=== PATIENT | female | born 1965 | race Caucasian/White ===

== ENCOUNTER 2019-10-07 17:31 | Emergency (ER) | payer SELFPAY ==
[2019-10-07] MEDS ORDERED: TETANUS & DIPHTHERIA TOX,ADULT 0.5 ML VIAL ONE (18:06)
[2019-10-07] MEDS ORDERED: LIDOCAINE 1% MPF 5 ML VIAL ONE (18:06)
--- NOTE | 2019-10-07 18:34 | EDPHYS ---
Physician Documentation [facility] Name: Sharyn Santo Age: 54 yrs Sex: Female : 1965 Arrival Date: 10/07/2019 Time: 17:34 Bed 19 Private MD: ED Physician Vin Kenyon HPI: 10/06 18:42 This 54 yrs old Female presents to ER via Ambulatory with complaints of kb Laceration To Arm. 18:42 The patient has a laceration related to: arm got caught in tailgate occurred at home, kb and there are no complicating factors. The injury was accidental. The laceration(s) is(are) located on the left bicep. Onset: The symptoms/episode began/occurred just prior to arrival. Associated signs and symptoms: The patient has no apparent associated signs or symptoms. The patient has not experienced similar symptoms in the past. The patient has not recently seen a physician. 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 - Social history:: Smoking status: Patient denies any tobacco usage or history of. ROS: 18:41 Constitutional: Negative for fever, chills, and weight loss, Neck: Negative for injury, kb pain, and swelling, Cardiovascular: Negative for chest pain, palpitations, and edema, Respiratory: Negative for shortness of breath, cough, wheezing, and pleuritic chest pain, Abdomen/GI: Negative for abdominal pain, nausea, vomiting, diarrhea, and constipation, Back: Negative for injury and pain, MS/Extremity: Negative for injury and deformity, Neuro: Negative for headache, weakness, numbness, tingling, and seizure. 18:41 Skin: Positive for laceration(s), of the left bicep. Exam: 18:41 Constitutional: This is a well developed, well nourished patient who is awake, alert, kb and in no acute distress. Head/Face: Normocephalic, atraumatic. Neck: Trachea midline, no thyromegaly or masses palpated, and no cervical lymphadenopathy. Supple, full range of motion without nuchal rigidity, or vertebral point tenderness. No Meningismus. Chest/axilla: Normal chest wall appearance and motion. Nontender with no deformity. No lesions are appreciated. Cardiovascular: Regular rate and rhythm with a normal S1 and S2. No gallops, murmurs, or rubs. Normal PMI, no JVD. No pulse deficits. Respiratory: Lungs have equal breath sounds bilaterally, clear to auscultation and percussion. No rales, rhonchi or wheezes noted. No increased work of breathing, no retractions or nasal flaring. Abdomen/GI: Soft, non-tender, with normal bowel sounds. No distension or tympany. No guarding or rebound. No evidence of tenderness throughout. MS/ Extremity: Pulses equal, no cyanosis. Neurovascular intact. Full, normal range of motion. Neuro: Awake and alert, GCS 15, oriented to person, place, time, and situation. Cranial nerves II-XII grossly intact. Motor strength 5/5 in all extremities. Sensory grossly intact. Cerebellar exam normal. Normal gait. 18:41 Skin: injury, laceration(s), the wound is approximately 2 cm(s), of the left bicep, that can be described as clean, no foreign body, linear, without bleeding. Vital Signs: 18:12 BP 123 / 75; Pulse 74; Resp 17; Temp 98.4(O); Pulse Ox 100% on R/A; ae4 Laceration: 18:39 Wound Repair of 2cm ( 0.8in ) subcutaneous laceration to left bicep. Linear shaped.. kb Distal neuro/vascular/tendon intact. Anesthesia: Wound infiltrated with 4 mls of 1% lidocaine. Wound prep: Extensive cleansing with betadine by me, Wound irrigation with saline by me, Wound margin revised minimally. Skin closed with 4 1-0 Prolene using simple sutures and sterile technique. Patient tolerated well. MDM: 17:57 Patient medically screened. kb 18:38 Data reviewed: vital signs, nurses notes. Data interpreted: Pulse oximetry: on room air kb is 100 %. Interpretation: normal. 18:39 Counseling: I had a detailed discussion with the patient and/or guardian regarding: the kb historical points, exam findings, and any diagnostic results supporting the discharge/admit diagnosis, the need for outpatient follow up, a family practitioner, to return to the emergency department if symptoms worsen or persist or if there are any questions or concerns that arise at home. 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 Exp: ae4 08/11/2021. Lot #: [id number]. } Route: IM; Site: right deltoid; 18:52 Follow up: Response: No adverse reaction ae4 18:35 Drug: Lidocaine (1 %) 1 vials {Note: Administered by Xin Cortes NP.} Volume: 5 ae4 ml; Route: Infiltration; Disposition: 19:39 Co-signature as Attending Physician, Vin Kenyon MD I agree with the assessment and kdr plan of care. Disposition: 10/07/19 18:33 Discharged to Home. Impression: Laceration without foreign body of left upper arm. - Condition is Stable. - Discharge Instructions: Laceration Care, Adult, [id number]. - Medication Reconciliation Form, Thank You Letter, Antibiotic Education, Prescription Opioid Use form. - Follow up: Emergency Department; When: As needed; Reason: Worsening of condition. Follow up: Private Physician; When: 2 - 3 days; Reason: Recheck today's complaints, Continuance of care, Re-evaluation by your physician. - Notes: Have sutures removed in 7-10 days Keep clean and dry Signatures: Xin Cortes, FURNITURE SANDER-C COLLEEN-Vin Weber MD MD kdr Brendan Gruber RN RN ae4 Corrections: (The following items were deleted from the chart) 19:00 18:33 10/07/2019 18:33 Discharged to Home. Impression: Laceration without foreign body ae4 of left upper arm. Condition is Stable. Forms are Medication Reconciliation Form, Thank You Letter, Antibiotic Education, Prescription Opioid Use. Follow up: Emergency Department; When: As needed; Reason: Worsening of condition. Follow up: Private Physician; When: 2 - 3 days; Reason: Recheck today's complaints, Continuance of care, Re-evaluation by your physician. kb
--- NOTE | 2019-10-07 18:34 | ER ---
Nurse's Notes [facility] Name: Sharyn Santo Age: 54 yrs Sex: Female : 1965 Arrival Date: 10/07/2019 Time: 17:34 Bed 19 Private MD: Diagnosis: Laceration without foreign body of left upper arm Presentation: 10/06 17:55 Chief complaint: Patient states: left arm got caught in a tail gate while moving things dm5 this afternoon, small laceration noted to left upper arm. Coronavirus screen: The patient has NOT traveled to a country currently being monitored by the [facility] within the last 14 days. Proceed with normal triage procedures. The patient has NOT had contact with any known and/or suspected case of coronavirus. Proceed with normal triage procedures. Ebola Screen: Patient negative for fever greater than or equal to 101.5 degrees Fahrenheit, and additional compatible Ebola Virus Disease symptoms Patient denies exposure to infectious person. Patient denies travel to an Ebola-affected area in the 21 days before illness onset. No symptoms or risks identified at this time. Complicating Factors: There are no complicating factors for this patient. Initial Sepsis Screen: Does the patient meet any 2 criteria? No. Patient's initial sepsis screen is negative. Does the patient have a suspected source of infection? No. Patient's initial sepsis screen is negative. Risk Assessment: Do you want to hurt yourself or someone else? Patient reports no desire to harm self or others. 17:55 Method Of Arrival: Ambulatory dm5 17:55 Acuity: JERAMIE 4 dm5 18:50 Onset of symptoms was October 07, 2019 at 17:50. ae4 Triage Assessment: 18:15 General: Appears in no apparent distress. uncomfortable, Behavior is calm, cooperative. ae4 Pain: Complains of pain in left bicep. EENT: No signs and/or symptoms were reported regarding the EENT system. Neuro: Level of Consciousness is awake, alert, obeys commands, Oriented to person, place, time, situation, Appropriate for age. Cardiovascular: Patient's skin is warm and dry. Respiratory: Airway is patent Respiratory effort is even, unlabored, Respiratory pattern is regular, symmetrical. GI: No signs and/or symptoms were reported involving the gastrointestinal system. : No signs and/or symptoms were reported regarding the genitourinary system. Derm: Wound noted Wound is Avulsion to left upper, medial arm. No bleeding noted, adipose tissue visible. Musculoskeletal: Swelling present in left bicep. 22:32 Injury Description: Laceration. 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 - Social history:: Smoking status: Patient denies any tobacco usage or history of. Screenin:13 Abuse screen: Denies threats or abuse. Nutritional screening: No deficits noted. ae4 Tuberculosis screening: No symptoms or risk factors identified. Fall Risk None identified. Assessment: 18:54 Reassessment: Patient appears in no apparent distress at this time. Patient and/or ae4 family updated on plan of care and expected duration. Pain level reassessed. Son and daughter in law at bedside. Patient states feeling better. General: Appears in no apparent distress. comfortable, Behavior is calm, cooperative. Pain: Complains of pain in left bicep. Neuro: Level of Consciousness is awake, alert, obeys commands, Oriented to person, place, time, situation, Appropriate for age. Cardiovascular: Patient's skin is warm and dry. 18:54 Musculoskeletal: Please see full assessment. Injury Description: Laceration is jagged, ae4 0.5 to 2.5 cm long, not bleeding. Vital Signs: 18:12 BP 123 / 75; Pulse 74; Resp 17; Temp 98.4(O); Pulse Ox 100% on R/A; ae4 ED Course: 17:34 Patient arrived in ED. mr 17:41 Xin Cortes FNP-C [facility]. kb 17:41 Vin Kenyon MD is Attending Physician. kb 17:57 Triage completed. dm5 17:58 Brendan Gruber, TIMOTEO is Primary Nurse. ae4 18:12 Arm band placed on right wrist. ae4 18:13 Bed in low position. Pulse ox on. NIBP on. ae4 19:00 No provider procedures requiring assistance completed. Patient did not have IV access ae4 during this emergency room visit. 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 Exp: ae4 08/11/2021. Lot #: [id number]. } Route: IM; Site: right deltoid; 18:52 Follow up: Response: No adverse reaction ae4 18:35 Drug: Lidocaine (1 %) 1 vials {Note: Administered by Xin Cortes NP.} Volume: 5 ae4 ml; Route: Infiltration; Outcome: 18:33 Discharge ordered by . ludivina 19:00 Patient left the ED. ae4 19:00 Discharged to home ambulatory. ae4 19:00 Condition: stable 19:00 Discharge instructions given to patient, Instructed on discharge instructions, follow up and referral plans. Demonstrated understanding of instructions. Signatures: Xin Cortes, ORNAMENTAL BRONZE WORKER-C ORNAMENTAL BRONZE WORKER-Lea Pickering, RN RN dm5 Brigette Babcock Andrea RN RN ae4 Corrections: (The following items were deleted from the chart) 22:34 18:54 General: Appears ae4 ae4
[2019-10-07 19:07] VITALS: BP 123/75; TEMP 98.4; O2SAT 100
== END 2019-10-07 19:00 | disposition home or self-care (01) ==
LOC: ER 17:31
PROC: 0JQF0ZZ Repair Left Upper Arm Subcutaneous Tissue and Fascia, Open Approach (ICD-10-PCS; principal; 2019-10-07)
DX: S41.112A Laceration without foreign body of left upper arm, initial encounter (principal); W23.0XXA Caught, crushed, jammed, or pinched between moving objects, initial encounter; Y93.9 Activity, unspecified; Y92.009 Unspecified place in unspecified non-institutional (private) residence as the place of occurrence of the external cause; Z23 Encounter for immunization
CPT/HCPCS: 90471; 90714; 99283

== ENCOUNTER 2019-10-19 12:49 | Emergency (ER) | payer SELFPAY ==
--- NOTE | 2019-10-19 13:24 | ER ---
Nurse's Notes [facility] Name: Sharyn Santo Age: 54 yrs Sex: Female : 1965 Arrival Date: 10/19/2019 Time: 12:54 Bed 11 Private MD: Diagnosis: Encounter for removal of sutures Vital Signs: 10/18 13:10 BP 114 / 65; Pulse 79; Resp 16; Temp 97.8(O); Pulse Ox 98% ; lt1 ED Course: 12:54 Patient arrived in ED. fj1 13:02 Toña Mosqueda F[facility]-C [facility] snw 13:02 Saw Lang MD is Attending Physician. snw 13:57 Lea Sheppard, TIMOTEO is Primary Nurse. iw Administered Medications: No medications were administered Outcome: 13:23 Discharge ordered by . snw 13:57 Patient left the ED. iw Signatures: Toña Mosqueda FNP-C ENTRY LEVEL ELECTRICIAN-Csnw Yeny Malin, TIMOTEO RN iw Antonia Glover lt1 Alexis Rangel fj1
--- NOTE | 2019-10-19 13:24 | EDPHYS ---
Physician Documentation [facility] Name: Sharyn Santo Age: 54 yrs Sex: Female : 1965 Arrival Date: 10/19/2019 Time: 12:54 Bed 11 Private MD: ED Physician Saw Lang HPI: 10/18 13:31 This 54 yrs old Female presents to ER via Unassigned with complaints of snw Suture Removal. 13:31 The patient has taryn on the left arm. Previous treatment: Treatment type: The snw patient's original treatment included sutures. Sutures/taryn progress: The patient's wound displays redness at site. It is unknown whether or not the patient has had similar symptoms in the past. It is unknown whether or not the patient has recently seen a physician. ROS: 13:31 Constitutional: Negative for fever, chills, and weight loss, Eyes: Negative for injury, snw pain, redness, and discharge, ENT: Negative for injury, pain, and discharge, Neck: Negative for injury, pain, and swelling, Cardiovascular: Negative for chest pain, palpitations, and edema, Respiratory: Negative for shortness of breath, cough, wheezing, and pleuritic chest pain, Abdomen/GI: Negative for abdominal pain, nausea, vomiting, diarrhea, and constipation, Back: Negative for injury and pain, : Negative for injury, bleeding, discharge, and swelling, MS/Extremity: Negative for injury and deformity, Neuro: Negative for headache, weakness, numbness, tingling, and seizure, Psych: Negative for depression, anxiety, suicide ideation, homicidal ideation, and hallucinations. 13:31 Skin: Positive for laceration(s), of the left bicep. Exam: 13:23 Constitutional: This is a well developed, well nourished patient who is awake, alert, snw and in no acute distress. Head/Face: Normocephalic, atraumatic. Eyes: Pupils equal round and reactive to light, extra-ocular motions intact. Lids and lashes normal. Conjunctiva and sclera are non-icteric and not injected. Cornea within normal limits. Periorbital areas with no swelling, redness, or edema. ENT: Nares patent. No nasal discharge, no septal abnormalities noted. Tympanic membranes are normal and external auditory canals are clear. Oropharynx with no redness, swelling, or masses, exudates, or evidence of obstruction, uvula midline. Mucous membranes moist. Neck: Trachea midline, no thyromegaly or masses palpated, and no cervical lymphadenopathy. Supple, full range of motion without nuchal rigidity, or vertebral point tenderness. No Meningismus. Chest/axilla: Normal chest wall appearance and motion. Nontender with no deformity. No lesions are appreciated. Cardiovascular: Regular rate and rhythm with a normal S1 and S2. No gallops, murmurs, or rubs. Normal PMI, no JVD. No pulse deficits. Respiratory: Lungs have equal breath sounds bilaterally, clear to auscultation and percussion. No rales, rhonchi or wheezes noted. No increased work of breathing, no retractions or nasal flaring. Abdomen/GI: Soft, non-tender, with normal bowel sounds. No distension or tympany. No guarding or rebound. No evidence of tenderness throughout. Back: No spinal tenderness. No costovertebral tenderness. Full range of motion. MS/ Extremity: Pulses equal, no cyanosis. Neurovascular intact. Full, normal range of motion. Neuro: Awake and alert, GCS 15, oriented to person, place, time, and situation. Cranial nerves II-XII grossly intact. Motor strength 5/5 in all extremities. Sensory grossly intact. Cerebellar exam normal. Normal gait. Psych: Awake, alert, with orientation to person, place and time. Behavior, mood, and affect are within normal limits. 13:23 Skin: Appearance: Color: normal in color, injury, laceration(s), repaired 2 weeks ago s/p cutting on truck tailgate, three sutures in place, removed, skin edges with some erythema, pt states this is improved post starting abx. Vital Signs: 13:10 BP 114 / 65; Pulse 79; Resp 16; Temp 97.8(O); Pulse Ox 98% ; lt1 MDM: 13:21 Patient medically screened. snw 13:32 Data reviewed: vital signs, nurses notes. Data interpreted: Pulse oximetry: on room air snw is 98 %. Interpretation: normal. Special discussion: Based on the history and exam findings, there is no indication for further emergent testing or inpatient evaluation. I discussed with the patient/guardian the need to see the primary care provider for further evaluation of the symptoms. Administered Medications: No medications were administered Disposition: 14:37 Co-signature as Attending Physician, Saw Lang MD. rn Disposition: 10/19/19 13:23 Discharged to Home. Impression: Encounter for removal of sutures. - Condition is Stable. - Discharge Instructions: Suture Removal, Care After. - Medication Reconciliation Form, Thank You Letter, Antibiotic Education, Prescription Opioid Use form. - Follow up: Private Physician; When: 2 - 3 days; Reason: Recheck today's complaints, Continuance of care, Re-evaluation by your physician. Follow up: Emergency Department; When: As needed; Reason: Worsening of condition. Signatures: Toña Mosqudea, MANAGER OF WAREHOUSE-C MANAGER OF WAREHOUSE-Csnw Yeny Malin RN RN Saw Elmore MD MD nutrition internship: (The following items were deleted from the chart) 13:57 13:23 10/19/2019 13:23 Discharged to Home. Impression: Encounter for removal of iw sutures. Condition is Stable. Forms are Medication Reconciliation Form, Thank You Letter, Antibiotic Education, Prescription Opioid Use. Follow up: Private Physician; When: 2 - 3 days; Reason: Recheck today's complaints, Continuance of care, Re-evaluation by your physician. Follow up: Emergency Department; When: As needed; Reason: Worsening of condition. snw
[2019-10-19 14:05] VITALS: BP 114/65; TEMP 97.8; O2SAT 98
== END 2019-10-19 13:57 | disposition home or self-care (01) ==
LOC: ER 12:49
DX: Z48.02 Encounter for removal of sutures (principal)
CPT/HCPCS: 99281

== ENCOUNTER 2023-11-25 13:32 | Emergency (ER) | payer OTHER, SELFPAY ==
--- OUTSIDE RECORDS SUMMARY | 2023-11-25 13:36 | XMS REPORT | Continuity of Care Document ---
Author Name Unknown Address [address] [facility] [address] [place] [address] [facility] thconnect Address [address] [facility] [address] [place] [address] Care Team Providers Care Geoscience Laboratory Technician Name Role Phone Elysia RAMON, [facility] Primary Care Physician [phone] ANTONIO LANTIGUA Attending Clinician Unavailable ROLA CALVILLO Attending Clinician Unava ilable CALEB STAUFFER Attending Clinician Unav ailable FAUSTO SALCIDO Attending Clinician Unavailab MARIA VICTORIA Dexter Attending Clinician Unavailab LAWRENCE Noland Attending Clinician Unavailable MD CRISTOBAL Attending Clinician Unavailab CHASE Bedolla Attending Clinician Unavailable LIZABETH CRISTINOCORRINE Attending Clinician Unavailable LAB47 Attending Clinician Unavailable NIDIA WHITFIELD Attending Clinician Unavailable KSENIA PEOPLES Attending Clinician Unava ilable LAB90 Attending Clinician Unavailable MELVIN Attending Clinician Unavailable Payers Payer Name Policy Type Policy Number Effective Date Expirati on Date Source JAY JAY PADILLA [facility] 94 ON 9 [id number] 2023 00:00:00 Problems Condition Name Condition Details Condition Category Status Onset Date Resolution Date Last Treatment Date Treating Clinician Comments Source Skin cancer screening Skin cancer screening Disease Active 09-10 00:00: 00 Sade foster Class 1 obesity due to excess calories without serious comorbidit y with body mass index (BMI) of 30.0 to 30.9 in adult Class 1 obesity due to excess calories without serious comorbidit y with body mass index (BMI) of 30.0 to 30.9 in adult Disease Active 2-15 00:00: 00 Sade Cartera kristin Well adult exam Well adult exam Disease Active -19 00:00: 00 Sade Cartera kristin Allergies, Adverse Reactions, Alerts Allergy Name Allergy Type Status Severity Reaction(s) Onset Date Inactive Date Treating Clinician Comments Source n Propensi ty to adverse reaction to drug Active 02-03 00:00: 00 Codeine Propensi ty to adverse reaction s Active 02-03 00:00: 00 Sade Cleveland - Raula l Social History Social Habit Start Date Stop Date Quantity Comments Source Sexual orientation Alpesh shaina Cleveland - External History of tobacco use Cigarette Smoker Sade rascon - External Alcoholic beverage intake 2023-11-11 00:00:00 2023-11-11 00:00:00 Ex-drinker (finding) Sade Cleveland - External Cigarettes smoked current (pack per day) - Reported 2023-11-11 00:00:00 2023-11-11 00:00:00 Sade Cleveland - External Cigarette pack-years 2023-11-11 00:00:00 2023-11-11 00:00:00 Sade Cleveland - External Alcohol intake 2023-09-10 00:00:00 2023-09-10 00:00:00 Ex-drinker (finding) Sade Cleveland - External History of Social function 2023-08-14 00:00:00 2023-08-14 00:00:00 Sade Cleveland - External Sex assigned at 1965 00:00:00 1965 00:00:00 Sade Cleveland - External Smoking Status Start Date Stop Date Source Smokes tobacco daily 2023-11-11 00:00:00 Sade Cleveland - External Medications Ordered Medication Name Filled Medication Name Start Date Stop Date Current Medication? Ordering Clinician Indication Dosage Frequency Signature (SIG) Comments Components Source Dicyclomine HCl 10 MG oral Capsule 11-10 00:00: 00 Yes [id number] 10mg Take 1 capsule (10 mg total) by mouth 4 times daily (before meals and nightly). Sade foster Omeprazole 40 MG oral Delayed Release Capsule 11-10 00:00: 00 Yes [id number] 40mg Take 1 capsule (40 mg total) by mouth daily. Sade foster Promethazin e HCl 12.5 MG oral Tablet 11-10 00:00: 00 Yes [id number] 12.5mg Q.25D Take 1 tablet (12.5 mg total) by mouth every 6 hours as needed for nausea. Sade foster Sod Picosulfate -Mag Ox-Cit Acd (Clenpiq) 10-3.5-12 MG-GM -GM/175ML oral Solution 11-10 00:00: 00 Yes [id number] Instructio ns provided to patient. Follow instructio ns provided by provider.. Sade foster Polyethylen e Glycol 3350 17 g oral Pack 11-10 00:00: 00 11-10 00:00 :00 Yes [id number] 17g Take 17 g by mouth 2 times daily. Sade foster Phentermine HCl 37.5 MG oral Tablet 10-12 00:00: 00 Yes [id number] 37.5mg Take 1 tablet (37.5 mg total) by mouth every morning (before breakfast) . Sade foster Dicyclomine HCl 10 MG oral Capsule -13 00:00: 00 11-10 00:00 :00 No [id number] 10mg Take 1 capsule (10 mg total) by mouth 4 times daily (before meals and nightly). Sade foster hydrOXYzine HCl 25 MG oral Tablet -12 00:00: 00 Yes [id number] Take 1/2-1 tablet po three times a day or QHS PRN for anxiety. Sade foster Sumatriptan Succinate 100 MG oral Tablet - 00:00: 00 Yes [id number] Take one tablet by mouth x 1 as needed for migraine; If headache is unresolved in 2 hours, take one more tablet by mouth. DO NOT EXCEED 200 MG IN A 24 HOUR PERIOD. Dispense 1 pack. Sade foster Ondansetron HCl 4 MG oral Tablet 09-14 00:00: 00 Yes [id number] 4mg Q.[id number] 3D Take 1 tablet (4 mg total) by mouth every 8 hours as needed for nausea. Sade foster Dicyclomine HCl 10 MG oral Capsule 09-10 00:00: 00 Yes [id number] 10mg Take 1 capsule (10 mg total) by mouth 4 times daily (before meals and nightly). Sade foster Phentermine HCl 37.5 MG oral Tablet 09-10 00:00: 00 Yes [id number] 37.5mg Take 1 tablet (37.5 mg total) by mouth every morning (before breakfast) . Sade foster Nicotine 21 MG/24HR transdermal PATCH 24 HR 09-10 00:00: 00 Yes [id number] 1{patch } Place 1 patch onto the skin every 24 hours. Sade foster Black-3 Fatty Acids (Black-3 Fish Oil) 1000 MG oral Capsule 08-17 00:00: 00 Yes [id number] 1{capsu le} Take 1 capsule by mouth 2 times daily. Sade foster Atorvastati n Calcium 20 MG oral Tablet 08-17 00:00: 00 Yes [id number] 20mg Take 1 tablet (20 mg total) by mouth daily. Sade foster Dicyclomine HCl 10 MG oral Capsule 08-14 00:00: 00 Yes [id number] 10mg Take 1 capsule (10 mg total) by mouth 4 times daily (before meals and nightly). Sade foster Varenicline Tartrate, Starter, (Chantix Starting Month ) 0.5 MG X 11 & 1 MG X 42 oral Tablet Therapy Pack 08-14 00:00: 00 11-10 00:00 :00 No [id number] Take 0.5mg tablet by mouth daily for 3 days, then increase to 0.5mg tablet twice daily for 3 days, then increase to 1mg tablet twice daily.. Sade Seybold - Externa l Acetaminoph en-Codeine 300-30 MG oral Tablet 1-04 00:00: 00 11-10 00:00 :00 No [id number] 1{tbl} Q.[id number] 3D Take 1-2 tablets by mouth every 8 hours as needed for pain. Sade Kim Externa l TAKE 1 TABLET TWICE DAILY. 02-24 00:00: 00 No 100 TAKE 1 TABLET TWICE DAILY. 02-24 00:00: 00 No 100 TAKE 1 TABLET TWICE DAILY. 02-24 00:00: 00 No 100 Ozempic 0.25 mg or 0.5 mg (2 mg/1.5 mL) subcutaneou s pen injector 01-16 00:00: 00 No 5mg(2 mg/1.5 mL) Ozempic 0.25 mg or 0.5 mg (2 mg/1.5 mL) subcutaneou s pen injector 01-16 00:00: 00 No 5mg(2 mg/1.5 mL) Ozempic 0.25 mg or 0.5 mg (2 mg/1.5 mL) subcutaneou s pen injector 01-16 00:00: 00 No 5mg(2 mg/1.5 mL) ondansetron HCl 4 mg tablet 12-21 00:00: 00 No 1mg ondansetron HCl 4 mg tablet 12-21 00:00: 00 No 1mg ondansetron HCl 4 mg tablet 12-21 00:00: 00 No 1mg Wellbutrin SR 100 mg tablet, 12 hr sustained-r elease 11-28 00:00: 00 No 1mg Wellbutrin SR 100 mg tablet, 12 hr sustained-r elease 11-28 00:00: 00 No 1mg Wellbutrin SR 100 mg tablet, 12 hr sustained-r elease - 00:00: 00 No 1mg sulfamethox azole 800 mg-trimetho prim 160 mg tablet 11-21 00:00: 00 No 1mg Dose Unknown 11-21 00:00: 00 No sulfamethox azole 800 mg-trimetho prim 160 mg tablet 2021-0 11-21 00:00: 00 No 1mg Dose Unknown 2021-0 11-21 00:00: 00 No sulfamethox azole 800 mg-trimetho prim 160 mg tablet 2021-0 11-21 00:00: 00 No 1mg Dose Unknown 2021-0 11-21 00:00: 00 No Dose Unknown 2021-0 11-15 00:00: 00 No Dose Unknown 2021-0 11-15 00:00: 00 No Dose Unknown 2021-0 11-15 00:00: 00 No Dose Unknown 2021-0 4 00:00: 00 No Dose Unknown 2021-0 19 00:00: 00 No Dose Unknown 2021-0 419 00:00: 00 No Dose Unknown 2021-0 414 00:00: 00 No Dose Unknown 2021-0 414 00:00: 00 No Dose Unknown 0 414 00:00: 00 No atorvastati n 10 mg tablet 2021-0 4-13 00:00: 00 No 1mg atorvastati n 10 mg tablet 2021-0 4-13 00:00: 00 No 1mg atorvastati n 10 mg tablet 2021-0 4-13 00:00: 00 No 1mg ondansetron HCl 4 mg tablet 2021-0 4-11 00:00: 00 No 1mg Dose Unknown 2021-0 4-11 00:00: 00 No ondansetron HCl 4 mg tablet 2021-0 4-11 00:00: 00 No 1mg Dose Unknown 2021-0 4-11 00:00: 00 No Dose Unknown 2021-0 4-11 00:00: 00 No Dose Unknown 2021-0 4-11 00:00: 00 No ondansetron HCl 4 mg tablet 2021-0 4-11 00:00: 00 No 1mg Dose Unknown 2021-0 4-11 00:00: 00 No Dose Unknown 2021-0 4-11 00:00: 00 No mupirocin 2 % topical ointment 2020-07 0-25 00:00: 00 No 1% Bactrim DS 800 mg-160 mg tablet 2020-07 0-25 00:00: 00 No 1mg mupirocin 2 % topical ointment 2020-07 0 00:00: 00 No 1% Bactrim DS 800 mg-160 mg tablet 2020-07 0 00:00: 00 No 1mg Dose Unknown 2020-07 0 00:00: 00 No Bactrim DS 800 mg-160 mg tablet 2020-07 0 00:00: 00 No 1mg Flonase Allergy Relief 50 mcg/actuati on nasal spray,suspe nsion 04-22 00:00: 00 No 12mcg/a ctuatio n Bromfed DM 2 mg-30 mg-10 mg/5 mL oral syrup 04-22 00:00: 00 No 10mg/5 mL Flonase Allergy Relief 50 mcg/actuati on nasal spray,suspe nsion 04-22 00:00: 00 No 12mcg/a ctuatio n Bromfed DM 2 mg-30 mg-10 mg/5 mL oral syrup 04-22 00:00: 00 No 10mg/5 mL Flonase Allergy Relief 50 mcg/actuati on nasal spray,suspe nsion 04-22 00:00: 00 No 12mcg/a ctuatio n Bromfed DM 2 mg-30 mg-10 mg/5 mL oral syrup 04-22 00:00: 00 No 10mg/5 mL Augmentin 875 mg-125 mg tablet 0 04-10 00:00: 00 No 1mg Bromfed DM 2 mg-30 mg-10 mg/5 mL oral syrup 0 04-10 00:00: 00 No 10mg/5 mL Augmentin 875 mg-125 mg tablet 0 04-10 00:00: 00 No 1mg Bromfed DM 2 mg-30 mg-10 mg/5 mL oral syrup 0 04-10 00:00: 00 No 10mg/5 mL Augmentin 875 mg-125 mg tablet 0 04-10 00:00: 00 No 1mg Bromfed DM 2 mg-30 mg-10 mg/5 mL oral syrup 0 04-10 00:00: 00 No 10mg/5 mL Flagyl 500 mg tablet 11-13 00:00: 00 No 1mg Flagyl 500 mg tablet 11-13 00:00: 00 No 1mg Flagyl 500 mg tablet 11-13 00:00: 00 No 1mg Wellbutrin XL 150 mg 24 hr tablet, extended release 2019-07 00:00: 00 No 1mg Wellbutrin XL 150 mg 24 hr tablet, extended release 2019-07 00:00: 00 No 1mg Wellbutrin XL 150 mg 24 hr tablet, extended release 2019-07 00:00: 00 No 1mg methylpredn isolone 4 mg tablets in a dose pack 2019-07 00:00: 00 No mg cephalexin 500 mg capsule 2019-07 00:00: 00 No 1mg Wellbutrin XL 150 mg 24 hr tablet, extended release 2019-07 00:00: 00 No 1mg methylpredn isolone 4 mg tablets in a dose pack 2019-07 00:00: 00 No mg cephalexin 500 mg capsule 2019-07 00:00: 00 No 1mg Wellbutrin XL 150 mg 24 hr tablet, extended release 2019-07 00:00: 00 No 1mg methylpredn isolone 4 mg tablets in a dose pack 2019-07 00:00: 00 No mg cephalexin 500 mg capsule 2019-07 00:00: 00 No 1mg Wellbutrin XL 150 mg 24 hr tablet, extended release 2019-07 00:00: 00 No 1mg prednisone 20 mg tablet 2019-07 00:00: 00 No mg prednisone 5 mg tablet 2019-07 00:00: 00 No mg prednisone 20 mg tablet 2019-07 00:00: 00 No mg prednisone 5 mg tablet 2019-07 00:00: 00 No mg prednisone 20 mg tablet 2019-07 00:00: 00 No mg prednisone 5 mg tablet 2019-07 00:00: 00 No mg ketoconazol e 2 % topical cream 2019-07 00:00: 00 No 1% terbinafine HCl 250 mg tablet 2019-07 00:00: 00 No 1mg prednisone 20 mg tablet 2019-07 00:00: 00 No 2mg ketoconazol e 2 % topical cream 2019-07 00:00: 00 No 1% terbinafine HCl 250 mg tablet 2019-07 00:00: 00 No 1mg prednisone 20 mg tablet 2019-07 00:00: 00 No 2mg ketoconazol e 2 % topical cream 2019-07 00:00: 00 No 1% terbinafine HCl 250 mg tablet 2019-07 00:00: 00 No 1mg prednisone 20 mg tablet 2019-07 00:00: 00 No 2mg Vital Signs Vital Name Observation Time Observation Value Comments S ource Systolic blood pressure 2023-11-11 18:50:00 109 mm[Hg] Sade Seybo ld - External Diastolic blood pressure 2023-11-11 18:50:00 73 mm[Hg] Sade Seybo ld - External Heart rate 2023-11-11 18:50:00 84 /min Kelse y Seybold - External Respiratory rate 2023-11-11 18:50:00 16 /min Sade Seybold - External Body height 2023-11-11 18:50:00 162.6 cm Sarah ey Seybold - External Body weight 2023-11-11 18:50:00 78.926 kg Sarah ey Seybold - External BMI 2023-11-11 18:50:00 29.87 kg/m2 Sarha ey Seybold - External Systolic blood pressure 2023-09-10 16:47:00 114 mm[Hg] Sade Seybo ld - External Diastolic blood pressure 2023-09-10 16:47:00 72 mm[Hg] Sade Seybo ld - External Heart rate 2023-09-10 16:47:00 76 /min Kelse y Seybold - External Body temperature 2023-09-10 16:47:00 36.67 Gely Sade Seybold - External Respiratory rate 2023-09-10 16:47:00 18 /min Sade Seybold - External Body height 2023-09-10 16:47:00 162.6 cm Sarah ey Seybold - External Body weight 2023-09-10 16:47:00 79.89 kg Sarah ey Seybold - External BMI 2023-09-10 16:47:00 30.23 kg/m2 Sarah ey Seybold - External Oxygen saturation in Arterial blood by Pulse oximetry 2023-09-10 16:47:00 98 /min Sade Anguloybo ld - External Systolic blood pressure 2023-08-14 17:13:00 118 mm[Hg] Sade Seybo ld - External Diastolic blood pressure 2023-08-14 17:13:00 70 mm[Hg] Sade Seybo ld - External Heart rate 2023-08-14 17:13:00 78 /min Kelse y Seybold - External Body temperature 2023-08-14 17:13:00 36.67 Gely Sade Seybold - External Respiratory rate 2023-08-14 17:13:00 18 /min Sade Seybold - External Body height 2023-08-14 17:13:00 162.6 cm Sarah ey Seybold - External Body weight 2023-08-14 17:13:00 80.287 kg Sarah ey Seybold - External BMI 2023-08-14 17:13:00 30.38 kg/m2 Sarah ey Seybold - External Oxygen saturation in Arterial blood by Pulse oximetry 2023-08-14 17:13:00 98 /min Sade Anguloybo ld - External Systolic blood pressure 2023-07-30 16:52:00 118 mm[Hg] Sade Seybo ld - External Diastolic blood pressure 2023-07-30 16:52:00 78 mm[Hg] Sade Seybo ld - External Heart rate 2023-07-30 16:52:00 80 /min Kelse y Seybold - External Body temperature 2023-07-30 16:52:00 36.61 Gely Sade Seybold - External Respiratory rate 2023-07-30 16:52:00 16 /min Sade Seybold - External Body height 2023-07-30 16:52:00 162.6 cm Sarah ey Seybold - External Body weight 2023-07-30 16:52:00 80.457 kg Sarah ey Seybold - External BMI 2023-07-30 16:52:00 30.45 kg/m2 Sarah ey Seybold - External Oxygen saturation in Arterial blood by Pulse oximetry 2023-07-30 16:52:00 97 /min Sade Cardoso ld - External BP Systolic 2022-05-14 14:28:00 109 mm[Hg] BP Diastolic 2022-05-14 14:28:00 72 mm[Hg] Weight Measured 2022-05-14 14:28:00 188.00 pounds Height Measured 2022-05-14 14:28:00 62.00 inches Body Temperature 2022-05-14 14:28:00 97.90 degrees Heart Rate 2022-05-14 14:28:00 87.00 /min Respiratory Rate 2022-05-14 14:28:00 BP Systolic 2022-03-11 08:29:00 96 mm[Hg] BP Diastolic 2022-03-11 08:29:00 64 mm[Hg] Weight Measured 2022-03-11 08:29:00 183.80 pounds Height Measured 2022-03-11 08:29:00 62.00 inches Body Temperature 2022-03-11 08:29:00 97.40 degrees Heart Rate 2022-03-11 08:29:00 78.00 /min Respiratory Rate 2022-03-11 08:29:00 BP Diastolic 2022-03-07 13:24:00 71 mm[Hg] Weight Measured 2022-03-07 13:24:00 184.80 pounds Height Measured 2022-03-07 13:24:00 62.00 inches Body Temperature 2022-03-07 13:24:00 98.20 degrees Heart Rate 2022-03-07 13:24:00 73.00 /min Respiratory Rate 2022-03-07 13:24:00 18.00 /min BP Systolic 2022-03-07 13:24:00 106 mm[Hg] BP Systolic 2022-01-14 09:47:00 116 mm[Hg] BP Diastolic 2022-01-14 09:47:00 69 mm[Hg] Weight Measured 2022-01-14 09:47:00 191.00 pounds Height Measured 2022-01-14 09:47:00 62.00 inches Body Temperature 2022-01-14 09:47:00 98.00 degrees Heart Rate 2022-01-14 09:47:00 78.00 /min Respiratory Rate 2022-01-14 09:47:00 17.00 /min BP Systolic 2021-11-21 11:22:00 106 mm[Hg] BP Diastolic 2021-11-21 11:22:00 74 mm[Hg] Weight Measured 2021-11-21 11:22:00 182.00 pounds Height Measured 2021-11-21 11:22:00 62.00 inches Body Temperature 2021-11-21 11:22:00 97.30 degrees Heart Rate 2021-11-21 11:22:00 65.00 /min Respiratory Rate 2021-11-21 11:22:00 BP Systolic 2021-11-04 10:53:00 107 mm[Hg] BP Diastolic 2021-11-04 10:53:00 77 mm[Hg] Weight Measured 2021-11-04 10:53:00 180.60 pounds Height Measured 2021-11-04 10:53:00 62.00 inches Body Temperature 2021-11-04 10:53:00 98.10 degrees Heart Rate 2021-11-04 10:53:00 103.00 /min Respiratory Rate 2021-11-04 10:53:00 16.00 /min BP Systolic 2021-05-20 15:12:00 136 mm[Hg] BP Diastolic 2021-05-20 15:12:00 74 mm[Hg] Weight Measured 2021-05-20 15:12:00 171.60 pounds Height Measured 2021-05-20 15:12:00 62.00 inches Body Temperature 2021-05-20 15:12:00 98.10 degrees Heart Rate 2021-05-20 15:12:00 97.00 /min Respiratory Rate 2021-05-20 15:12:00 BP Systolic 2020-11-12 08:51:00 111 mm[Hg] BP Diastolic 2020-11-12 08:51:00 73 mm[Hg] Weight Measured 2020-11-12 08:51:00 177.40 pounds Height Measured 2020-11-12 08:51:00 62.00 inches Body Temperature 2020-11-12 08:51:00 97.80 degrees Heart Rate 2020-11-12 08:51:00 97.00 /min Respiratory Rate 2020-11-12 08:51:00 17.00 /min BP Systolic 2020-07-07 11:25:00 125 mm[Hg] BP Diastolic 2020-07-07 11:25:00 79 mm[Hg] Weight Measured 2020-07-07 11:25:00 188.40 pounds Height Measured 2020-07-07 11:25:00 62.00 inches Body Temperature 2020-07-07 11:25:00 98.00 degrees Heart Rate 2020-07-07 11:25:00 82.00 /min Respiratory Rate 2020-07-07 11:25:00 16.00 /min BP Systolic 2020-06-09 11:00:00 120 mm[Hg] BP Diastolic 2020-06-09 11:00:00 68 mm[Hg] Weight Measured 2020-06-09 11:00:00 193.40 pounds Height Measured 2020-06-09 11:00:00 62.00 inches Body Temperature 2020-06-09 11:00:00 98.30 degrees Heart Rate 2020-06-09 11:00:00 78.00 /min Respiratory Rate 2020-06-09 11:00:00 17.00 /min BP Systolic 2020-05-16 09:44:00 107 mm[Hg] BP Diastolic 2020-05-16 09:44:00 75 mm[Hg] Weight Measured 2020-05-16 09:44:00 189.60 pounds Height Measured 2020-05-16 09:44:00 62.00 inches Body Temperature 2020-05-16 09:44:00 97.90 degrees Heart Rate 2020-05-16 09:44:00 74.00 /min Respiratory Rate 2020-05-16 09:44:00 16.00 /min BP Systolic 2020-05-08 13:58:00 130 mm[Hg] BP Diastolic 2020-05-08 13:58:00 86 mm[Hg] Weight Measured 2020-05-08 13:58:00 187.00 pounds Height Measured 2020-05-08 13:58:00 62.00 inches Body Temperature 2020-05-08 13:58:00 98.70 degrees Heart Rate 2020-05-08 13:58:00 76.00 /min Respiratory Rate 2020-05-08 13:58:00 18.00 /min Plan of Care Planned Activity Planned Date Details Comments Source Goal Plan of Care Note [code = 38700-9] Goal Plan of Care Note [code = 56032-9] Goal Plan of Care Note [code = 81068-8] Goal Plan of Care Note [code = 38219-4] Goal Plan of Care Note [code = 51177-0] Goal Plan of Care Note [code = 07835-8] Goal Plan of Care Note [code = 08708-9] Goal Plan of Care Note [code = 13795-8] Goal Plan of Care Note [code = 42178-4] Goal Plan of Care Note [code = 41324-3] Goal Plan of Care Note [code = 48764-1] Goal Plan of Care Note [code = 99403-0] Goal Plan of Care Note [code = 34865-6] Goal Plan of Care Note [code = 63747-0] Goal Plan of Care Note [code = 62109-5] Goal Plan of Care Note [code = 04004-7] Goal Plan of Care Note [code = 10162-3] Goal Plan of Care Note [code = 42561-0] Goal Plan of Care Note [code = 33688-2] Goal Plan of Care Note [code = 23723-7] Goal Plan of Care Note [code = 23053-9] Goal Plan of Care Note [code = 87713-3] Goal Plan of Care Note [code = 75396-3] Goal Plan of Care Note [code = 44076-7] Goal Plan of Care Note [code = 79247-0] Goal Plan of Care Note [code = 07464-7] Goal Plan of Care Note [code = 33589-9] Goal Plan of Care Note [code = 79952-4] Goal Plan of Care Note [code = 45989-2] Goal Plan of Care Note [code = 45394-8] Goal Plan of Care Note [code = 27249-5] Goal Plan of Care Note [code = 35352-8] Goal Plan of Care Note [code = 50503-6] Goal Plan of Care Note [code = 47850-1] Goal Plan of Care Note [code = 29918-7] Goal Plan of Care Note [code = 27887-3] Goal Plan of Care Note [code = 84433-4] Goal Plan of Care Note [code = 34562-7] Goal Plan of Care Note [code = 55388-9] Goal Plan of Care Note [code = 34895-5] Goal Plan of Care Note [code = 03227-2] Goal Plan of Care Note [code = 74815-3] Goal Plan of Care Note [code = 60408-5] Goal Plan of Care Note [code = 90505-5] Goal Plan of Care Note [code = 54531-8] Goal Plan of Care Note [code = 01742-3] Goal Plan of Care Note [code = 82952-0] Goal Plan of Care Note [code = 48533-9] Goal Plan of Care Note [code = 56750-0] Goal Plan of Care Note [code = 15145-0] Goal Plan of Care Note [code = 14531-7] Goal Plan of Care Note [code = 24892-9] Goal Plan of Care Note [code = 07116-3] Goal Plan of Care Note [code = 55888-1] Goal Plan of Care Note [code = 72203-9] Goal Plan of Care Note [code = 93515-4] Goal Plan of Care Note [code = 04042-0] Goal Plan of Care Note [code = 62539-5] Goal Plan of Care Note [code = 81693-1] Goal Plan of Care Note [code = 67134-9] Goal Plan of Care Note [code = 98825-8] Goal Plan of Care Note [code = 50908-3] Goal Plan of Care Note [code = 49991-6] Goal Plan of Care Note [code = 49981-5] Goal Plan of Care Note [code = 76675-2] Goal Plan of Care Note [code = 93070-6] Goal Plan of Care Note [code = 86439-0] Goal Plan of Care Note [code = 77016-8] Goal Plan of Care Note [code = 58801-9] Goal Plan of Care Note [code = 69763-0] Goal Plan of Care Note [code = 66162-9] Goal Plan of Care Note [code = 36354-2] Goal Plan of Care Note [code = 54414-0] Goal Plan of Care Note [code = 88994-9] Goal Plan of Care Note [code = 89661-0] Goal Plan of Care Note [code = 00198-7] Goal Plan of Care Note [code = 66191-3] Goal Plan of Care Note [code = 79067-5] Goal Plan of Care Note [code = 99063-7] Goal Plan of Care Note [code = 78799-1] Goal Plan of Care Note [code = 10669-1] Goal Plan of Care Note [code = 66604-2] Goal Plan of Care Note [code = 63033-8] Goal Plan of Care Note [code = 88086-5] Goal Plan of Care Note [code = 09301-5] Goal Plan of Care Note [code = 32569-7] Goal Plan of Care Note [code = 52878-4] Goal Plan of Care Note [code = 41626-6] Goal Plan of Care Note [code = 76613-1] Goal Plan of Care Note [code = 99375-6] Goal Plan of Care Note [code = 58355-3] Goal Plan of Care Note [code = 72477-0] Goal Plan of Care Note [code = 43506-1] Goal Plan of Care Note [code = 49148-1] Encounters Start Date/Time End Date/Time Encounter Type Admission Type Attending [facility] Care Department Encounter ID Source 2024-04-22 09:00:00 2024-04-22 09:00:00 Outpatient ANTONIO LANTIGUA [id number] [facility] 2024-01-14 15:00:00 2024-01-14 15:00:00 Outpatient ROLA CALVILLO [id number] [facility] 2024-01-01 11:00:00 2024-01-01 11:00:00 Outpatient [place] [id number] [facility] 2023-12-24 08:55:00 2023-12-24 08:55:00 Outpatient CALEB STAUFFER [id number] [facility] 2023-12-18 09:30:00 2023-12-18 09:30:00 Outpatient FAUSTO SALCIDO [id number] [facility] 2023-12-08 16:00:00 2023-12-08 16:00:00 Outpatient MARIA VICTORIA DIAZ [id number] [facility] 2023-11-30 11:00:00 2023-11-30 11:00:00 Outpatient VENKATA LAWRENCE [place] [id number] [facility] 2023-11-18 00:00:00 2023-11-18 00:00:00 Outpatient MD SADE BUNDY [id number] [facility] 2023-11-17 08:00:00 2023-11-17 08:00:00 Outpatient ROLA CALVILLO [id number] [facility] 2023-11-17 00:00:00 2023-11-17 00:00:00 Outpatient ANTONIO LANTIGUA [id number] [facility] 2023-11-13 00:00:00 2023-11-13 00:00:00 Outpatient CHASE VERDUGO [id number] [facility] 2023-11-12 13:30:00 2023-11-12 13:30:00 [id number] [facility]:00:00 2023-11-12 00:00:00 Outpatient GERRY BARONE [place] [id number] [facility] 2023-11-11 14:45:00 2023-11-11 14:45:00 Outpatient MUNASam [place] [id number] [facility] 2023-11-11 14:15:00 2023-11-11 14:15:00 Outpatient ANTONIO LANTIGUA [id number] [facility] 2023-11-09 11:00:00 2023-11-09 11:00:00 Outpatient MARIA VICTORIA DIAZ [id number] [facility] 2023-11-05 00:00:00 2023-11-05 00:00:00 Outpatient MARIA VICTORIA DIAZ [id number] [facility] 2023-10-23 11:00:00 2023-10-23 11:00:00 Outpatient [place] [id number] [facility] 2023-10-23 10:30:00 2023-10-23 10:30:00 Outpatient [place] [id number] [facility] [facility] 2023-10-23 10:00:00 2023-10-23 10:00:00 Outpatient [place] [id number] [facility] 2023-10-23 08:15:00 2023-10-23 08:15:00 Outpatient [place] [id number] [facility] Seybold 2023-10-23 08:15:00 2023-10-23 08:15:00 Outpatient SADE SADE [id number] [facility] 2023-10-23 07:40:00 2023-10-23 07:40:00 Outpatient [place] [id number] [facility] 2023-10-13 09:15:00 2023-10-13 09:15:00 Outpatient KARTIK CHASE [place] [id number] [facility] 2023-10-11 00:00:00 2023-10-11 00:00:00 Outpatient BAR[place]GERRY SALINAS [place] [id number] [facility]10 00:00:00 2023-10-10 00:00:00 Outpatient KARTIK CHASE [place] [id number] [facility] 2023-10-06 13:30:00 2023-10-06 13:30:00 Outpatient NIDIA WHITFIELD [id number] [facility] 2023-10-02 00:00:00 2023-10-02 00:00:00 Outpatient MARIA VICTORIA DIAZ [id number] [facility] 2023-09-28 15:15:00 2023-09-28 15:15:00 Outpatient LAWRENCE HASTINGS [id number] [facility] Seybold 2023-09-28 00:00:00 2023-09-28 00:00:00 Outpatient KSENIA PEOPLES [id number] [facility]bold 2023-09-17 13:15:00 2023-09-17 13:15:00 Outpatient [place] [id number] [facility] 2023-09-14 13:30:00 2023-09-14 13:30:00 Outpatient BARONE, CRISTINO-SON [place] [id number] [facility]bold 2023-09-10 11:00:00 2023-09-10 11:00:00 Outpatient MARIA VICTORIA DIAZ [place] [id number] [facility]bold 2023-09-10 00:00:00 2023-09-10 00:00:00 Outpatient PREJAYE CHASE [place] [id number] [facility] 2023-09-10 00:00:00 2023-09-10 00:00:00 Outpatient PREJAYE CHASE [place] [id number] [facility] Seybold 2023-09-07 00:00:00 2023-09-07 00:00:00 Outpatient MARIA VICTORIA DIAZ [id number] [facility] Seybold 2023-08-31 00:00:00 2023-08-31 00:00:00 Outpatient KSENIA PEOPLES [id number] [facility] Seybold 2023-08-28 00:00:00 2023-08-28 00:00:00 Outpatient MARIA VICTORIA DIAZ [id number] [facility] Seybold 2023-08-21 00:00:00 2023-08-21 00:00:00 Outpatient MD SADE BUNDY [id number] [facility]ade Seybold 2023-08-18 00:00:00 2023-08-18 00:00:00 Outpatient MARIA VICTORIA DIAZ [id number] [facility] Seybold 2023-08-18 00:00:00 2023-08-18 00:00:00 Outpatient MARIA VICTORIA DIAZ [id number] [facility] Seybold 2023-08-17 00:00:00 2023-08-17 00:00:00 Outpatient MARIA VICTORIA DIAZ [id number] [facility] Seybold 2023-08-17 00:00:00 2023-08-17 00:00:00 Outpatient WILPAULDavion CHASE [place] [id number] [facility] Seybold 2023-08-17 00:00:00 2023-08-17 00:00:00 Outpatient MARIA VICTORIA DIAZ [id number] [facility] 2023-08-14 13:00:00 2023-08-14 13:00:00 Outpatient LAB90 [place] [id number] [facility] 2023-08-14 11:30:00 2023-08-14 11:30:00 Outpatient MARIA VICTORIA DIAZ [id number] [facility] 2023-08-06 09:00:00 2023-08-06 09:00:00 Outpatient MARIA VICTORIA DIAZ [id number] [facility] 2023-07-31 00:00:00 2023-07-31 00:00:00 Outpatient MELVIN OH SADE [id number] [facility] 2023-07-31 00:00:00 2023-07-31 00:00:00 Outpatient MELVIN ESTRADAMADDI [place] [id number] [facility] 2023-07-30 11:45:00 2023-07-30 11:45:00 Outpatient LAB90 [place] [id number] [facility] 2023-07-30 11:00:00 2023-07-30 11:00:00 Outpatient KSENIA PEOPLES SADE [id number] [facility] 2023-06-04 11:09:52 2023-06-04 11:09:52 Outpatient SFA SFA [id number] Leonel Hernandez 2023-05-23 11:11:03 2023-05-23 11:11:03 Outpatient SFA SFA [id number] Leonel Hernandez 2023-04-16 15:42:40 2023-04-16 15:42:40 Outpatient SFA SFA [id number] Leonel Thurston David 2023-02-11 10:48:41 2023-02-11 10:48:41 Outpatient SFA SFA [id number] Leonel Hernandez 2023-02-09 11:07:42 2023-02-09 11:07:42 Outpatient SFA SFA [id number] Leonel Thurston David 2022-05-24 10:08:02 2022-05-24 10:08:02 Outpatient SFA SFA 1029 Leoenl Hernandez 2022-05-14 14:21:53 2022-05-14 14:21:53 Outpatient [facility] 1019 Leonel Hernandez 2022-05-14 00:00:00 2022-05-14 00:00:00 Outpatient Visit [id number] 2022-03-11 00:00:00 2022-03-11 00:00:00 Outpatient Visit [id number] 2022-03-07 00:00:00 2022-03-07 00:00:00 Outpatient Visit [id number] Results Test Description Test Time Test Comments Results Result Co mments Source CBC W/AUTO DIFF WITH [id number] 02:37:09* Test Item Value Reference Range Interpretation Comme nts WBC (test code = 1001) 5.0 K/UL 3.5-11.0 RBC (test code = 1002) 4.26 M/UL 3.80-5.40 HEMOGLOBIN (test code = 1003) 13.8 G/DL 11.5-15.5 HEMATOCRIT (test code = 1004) 43.1 % 34.0-45.0 MCV (test code = 1005) 101.2 fL 80.0-99.0 H MCH (test code = 1006) 32.4 PG 25.0-33.0 MCHC (test code = 1007) 32.0 G/DL 31.0-36.0 RDW (test code = 1038) 12.9 % 11.5-15.0 NEUTROPHILS (test code = 1008) 55.2 % LYMPHOCYTES (test code = 1010) 32.3 % MONOCYTES (test code = 1011) 7.7 % EOSINOPHILS (test code = 1012) 4.2 % BASOPHILS (test code = 1013) 0.4 % IMMATURE GRANULOCYTES (test code = 1036) 0.2 % NUCLEATED RBCS (test code = 1065) 0.0 /100 WBC'S See_Comment [Automated messa ge] The system which generated this result transmitted reference range: 0.0. The reference range was not used to interpret this result as normal/abnormal. PLATELET COUNT (test code = 1015) 212 K/UL 130-400 ABSOLUTE NEUTROPHILS (test code = 1066) 2.73 K/UL 1.50-7.50 ABSOLUTE LYMPHOCYTES (test code = 1067) 1.60 K/UL 1.00-4.00 ABSOLUTE MONOCYTES (test code = 1068) 0.38 K/UL 0.20-1.00 ABSOLUTE EOSINOPHILS (test code = 1040) 0.21 K/UL 0.00-0.50 ABSOLUTE BASOPHILS (test code = 1069) 0.02 K/UL 0.00-0.20 ABS IMMATURE GRANULOCYTES (test code = 1020) 0.01 K/UL 0.00-0.10 ABS NUCLEATED RBCS (test code = 27747) 0.00 K/UL 0.00-0.11 HEMOGLOBIN [id number] 04:40:59* Test Item Value Reference Range Interpretation Comme nts HEMOGLOBIN A1c (test code = 60201) 5.8 % 4.2-5.6 H UNLESS OTHERWISE INDICATED, ALL TESTING PERFORMED [facility] [address] [place] [address] [employer] TRIMMER: STEVIE CRISTOBAL M.D. CLIA NUMBER [id number] [facility]. [id number] HEMOGLOBIN [id number] 00:00:00* Test Item Value Reference Range Interpretation Comme nts HEMOGLOBIN A1c (test code = 54976) 5.8 % HEMOGLOBIN [id number] 00:00:00* Test Item Value Reference Range Interpretation Comme nts HEMOGLOBIN A1c (test code = 69651) 5.8 % HEMOGLOBIN [id number] 00:00:00* Test Item Value Reference Range Interpretation Comme nts HEMOGLOBIN A1c (test code = 61575) 5.8 % HEMOGLOBIN [id number] 00:00:00* Test Item Value Reference Range Interpretation Comme nts HEMOGLOBIN A1c (test code = 84205) 5.8 % HEMOGLOBIN [id number] 00:00:00* Test Item Value Reference Range Interpretation Comme nts HEMOGLOBIN A1c (test code = 30442) 5.8 % HEMOGLOBIN [id number] 00:00:00* Test Item Value Reference Range Interpretation Comme nts HEMOGLOBIN A1c (test code = 66368) 5.8 % HEMOGLOBIN [id number] 00:00:00* Test Item Value Reference Range Interpretation Comme nts HEMOGLOBIN A1c (test code = 14458) 5.8 % HEMOGLOBIN [id number] 00:00:00* Test Item Value Reference Range Interpretation Comme nts HEMOGLOBIN A1c (test code = 64108) 5.8 % HEMOGLOBIN [id number] 00:00:00* Test Item Value Reference Range Interpretation Comme nts HEMOGLOBIN A1c (test code = 49814) 5.8 % [id number] 04:19:52* Test Item Value Reference Range Interpretation Comme nts LIPASE (test code = 2058) 20 U/L 13-60 [id number] 04:19:52* Test Item Value Reference Range Interpretation Comme nts AMYLASE (test code = 2205) 72 U/L 28-100 UNLESS OTHERWISE INDICATED, ALL TESTING PERFORMED [facility] [address] [place] [address] [employer] TRIMMER: STEVIE CRISTOBAL M.D. CLIA NUMBER [id number] [facility] [place]. [id number] LIPID [id number] 04:10:50* Test Item Value Reference Range Interpretation Comme nts CHOLESTEROL (test code = 2210) 321 MG/DL <200 H TRIGLYCERIDES (test code = 2232) 315 MG/DL <150 H HDL CHOLESTEROL (test code = 2220) 46 MG/DL >39 CALC LDL CHOL (test code = 2237) 222 MG/DL <100 H NOTE: CALCULATED LDL IS BASED ON HANG-ARAMBULA METHOD WHICHINCLUDES ADJUSTABLE TRIGLYCERIDE:VLDL CHOLESTEROL RATIO.THIS FACTOR VARIES BY MEASURED TRIGLYCERIDE AND NON-HDLCHOLESTEROL CONCENTRATIONS WITH INCREASED CALCULATED LDL SEENIN HIGHER TRIGLYCERIDE OR LOWER NON-HDL SPECIMENS. FOR MOREINFORMATION, SEE CLIENT ANNOUNCEMENT AT [email or web address] RISK RATIO LDL/HDL (test code = 2238) 4.83 RATIO <3.22 H COMPREHENSIVE METABOLIC [id number] 04:10:50* Test Item Value Reference Range Interpretation Comme nts GLUCOSE (test code = 2216) 115 MG/DL 70-99 H BUN (test code = 2207) 19 MG/DL 6-20 CREATININE (test code = 2213) 0.94 MG/DL 0.60-1.30 eGFR (2020 CKD-EPI) (test code = 14667) 71 ML/MIN/1.73 >60 CALC BUN/CREAT (test code = 2234) 20 RATIO 6-28 SODIUM (test code = 2230) 143 MEQ/L 133-146 POTASSIUM (test code = 2227) 4.4 MEQ/L 3.5-5.4 CHLORIDE (test code = 2214) 101 MEQ/L 95-107 CARBON DIOXIDE (test code = 2205) 24 MEQ/L 19-31 CALCIUM (test code = 2208) 10.2 MG/DL 8.5-10.5 PROTEIN, TOTAL (test code = 2228) 7.7 G/DL 6.1-8.3 ALBUMIN (test code = 2200) 4.7 G/DL 3.5-5.2 CALC GLOBULIN (test code = 0) 3.0 G/DL 1.9-3.7 CALC A/G RATIO (test code = 2233) 1.6 RATIO 1.0-2.6 BILIRUBIN, TOTAL (test code = 2206) 0.5 MG/DL See_Comment [Automated me ssage] The system which generated this result transmitted reference range: <=1.2. The reference range was not used to interpret this result as normal/abnormal. ALKALINE PHOSPHATASE (test code = 2203) 55 U/L 40-136 AST (test code = 8) 34 U/L 9-40 ALT (test code = 9) 42 U/L 5-40 H HIV 1/2 4TH GEN, RFLX [id number] 03:51:01* Test Item Value Reference Range Interpretation Comme nts HIV 1/2 4TH GEN, RFLX CONF ( test code = 3514) NON-REACTIVE NON-REACTIVE HEPATITIS PANEL, [id number] 03:51:01* Test Item Value Reference Range Interpretation Comme nts HEPATITIS A IgM (test code = 88501) NON-REACTIVE NON-REACTIVE HEPATITIS B CORE IgM (test code = 4644) NON-REACTIVE NON-REACTIVE HEPATITIS B SURF AG (test code = 2739) NON-REACTIVE NON-REACTIVE HEPATITIS C ANTIBODY (test code = 4675) NON-REACTIVE NON-REACTIVE INTERPRETATION HEPATITIS A: (test code = 2552) (NOTE) Hepatitis A serology shows no evidence of acute hepatitis A. INTERPRETATION HEPATITIS B: (test code = 24446) (NOTE) Hepatitis B serology shows no evidence of acute hepatitis B andno indication of exposure to hepatitis B virus in the previous lb eight months. INTERPRETATION HEPATITIS C: (test code = 43964) (NOTE) Hepatitis C serology shows no evidence of exposure to hepatitisC virus at this time. It can take up to 12 months after exposure tothe hepatitis C virus for antibodies to become detectable in the blood in certain patients. CBC W/AUTO DIFF WITH [id number] 03:36:48* Test Item Value Reference Range Interpretation Comme nts WBC (test code = 1001) 7.0 K/UL 3.5-11.0 RBC (test code = 1002) 4.83 M/UL 3.80-5.40 HEMOGLOBIN (test code = 1003) 15.6 G/DL 11.5-15.5 H HEMATOCRIT (test code = 1004) 45.5 % 34.0-45.0 H MCV (test code = 1005) 94.2 fL 80.0-99.0 MCH (test code = 1006) 32.3 PG 25.0-33.0 MCHC (test code = 1007) 34.3 G/DL 31.0-36.0 RDW (test code = 1038) 12.9 % 11.5-15.0 NEUTROPHILS (test code = 1008) 69.1 % LYMPHOCYTES (test code = 1010) 22.4 % MONOCYTES (test code = 1011) 6.4 % EOSINOPHILS (test code = 1012) 1.6 % BASOPHILS (test code = 1013) 0.4 % IMMATURE GRANULOCYTES (test code = 1036) 0.1 % NUCLEATED RBCS (test code = 1065) 0.0 /100 WBC'S See_Comment [Automated messa ge] The system which generated this result transmitted reference range: 0.0. The reference range was not used to interpret this result as normal/abnormal. PLATELET COUNT (test code = 1015) 261 K/UL 130-400 ABSOLUTE NEUTROPHILS (test code = 1066) 4.83 K/UL 1.50-7.50 ABSOLUTE LYMPHOCYTES (test code = 1067) 1.57 K/UL 1.00-4.00 ABSOLUTE MONOCYTES (test code = 1068) 0.45 K/UL 0.20-1.00 ABSOLUTE EOSINOPHILS (test code = 1040) 0.11 K/UL 0.00-0.50 ABSOLUTE BASOPHILS (test code = 1069) 0.03 K/UL 0.00-0.20 ABS IMMATURE GRANULOCYTES (test code = 1020) 0.01 K/UL 0.00-0.10 ABS NUCLEATED RBCS (test code = 40857) 0.00 K/UL 0.00-0.11 HIV AB/AG COMBO RFLX [id number] 00:00:00* Test Item Value Reference Range Interpretation Comme nts HIV 1/2 4TH GEN, RFLX CONF ( test code = 3514) NON-REACTIVE HIV AB/AG COMBO RFLX [id number] 00:00:00* Test Item Value Reference Range Interpretation Comme nts HIV 1/2 4TH GEN, RFLX CONF ( test code = 3514) NON-REACTIVE ACUTE HEPATITIS [id number] 00:00:00* Test Item Value Reference Range Interpretation Comme nts HEPATITIS A IgM (test code = 80422) NON-REACTIVE HEPATITIS B CORE IgM (test c ode = 4644) NON-REACTIVE HEPATITIS B SURF AG (test co de = 2739) NON-REACTIVE HEPATITIS C ANTIBODY (test c ode = 4675) NON-REACTIVE INTERPRETATION HEPATITIS A: (test code = 2552) (NOTE) INTERPRETATION HEPATITIS B: (test code = 44391) (NOTE) INTERPRETATION HEPATITIS C: (test code = 58785) (NOTE) ACUTE HEPATITIS [id number] 00:00:00* Test Item Value Reference Range Interpretation Comme nts HEPATITIS A IgM (test code = 45773) NON-REACTIVE HEPATITIS B CORE IgM (test c ode = 4644) NON-REACTIVE HEPATITIS B SURF AG (test co de = 2739) NON-REACTIVE HEPATITIS C ANTIBODY (test c ode = 4675) NON-REACTIVE INTERPRETATION HEPATITIS A: (test code = 2552) (NOTE) INTERPRETATION HEPATITIS B: (test code = 77429) (NOTE) INTERPRETATION HEPATITIS C: (test code = 94980) (NOTE) CBC W/AUTO [id number] 00:00:00* Test Item Value Reference Range Interpretation Comme nts WBC (test code = 1001) 7.0 K/UL RBC (test code = 1002) 4.83 M/UL HEMOGLOBIN (test code = 1003) 15.6 G/DL HEMATOCRIT (test code = 1004) 45.5 % MCV (test code = 1005) 94.2 fL MCH (test code = 1006) 32.3 PG MCHC (test code = 1007) 34.3 G/DL RDW (test code = 1038) 12.9 % NEUTROPHILS (test code = 1008) 69.1 % LYMPHOCYTES (test code = 1010) 22.4 % MONOCYTES (test code = 1011) 6.4 % EOSINOPHILS (test code = 1012) 1.6 % BASOPHILS (test code = 1013) 0.4 % IMMATURE GRANULOCYTES (test code = 1036) 0.1 % NUCLEATED RBCS (test code = 1065) 0.0 /100WBC'S PLATELET COUNT (test code = 1015) 261 K/UL ABSOLUTE NEUTROPHILS (test c ode = 1066) 4.83 K/UL ABSOLUTE LYMPHOCYTES (test c ode = 1067) 1.57 K/UL ABSOLUTE MONOCYTES (test cod e = 1068) 0.45 K/UL ABSOLUTE EOSINOPHILS (test c ode = 1040) 0.11 K/UL ABSOLUTE BASOPHILS (test cod e = 1069) 0.03 K/UL ABS IMMATURE GRANULOCYTES (t est code = 1020) 0.01 K/UL ABS NUCLEATED RBCS (test cod e = 96714) 0.00 K/UL CBC W/AUTO [id number] 00:00:00* Test Item Value Reference Range Interpretation Comme nts WBC (test code = 1001) 7.0 K/UL RBC (test code = 1002) 4.83 M/UL HEMOGLOBIN (test code = 1003) 15.6 G/DL HEMATOCRIT (test code = 1004) 45.5 % MCV (test code = 1005) 94.2 fL MCH (test code = 1006) 32.3 PG MCHC (test code = 1007) 34.3 G/DL RDW (test code = 1038) 12.9 % NEUTROPHILS (test code = 1008) 69.1 % LYMPHOCYTES (test code = 1010) 22.4 % MONOCYTES (test code = 1011) 6.4 % EOSINOPHILS (test code = 1012) 1.6 % BASOPHILS (test code = 1013) 0.4 % IMMATURE GRANULOCYTES (test code = 1036) 0.1 % NUCLEATED RBCS (test code = 1065) 0.0 /100WBC'S PLATELET COUNT (test code = 1015) 261 K/UL ABSOLUTE NEUTROPHILS (test c ode = 1066) 4.83 K/UL ABSOLUTE LYMPHOCYTES (test c ode = 1067) 1.57 K/UL ABSOLUTE MONOCYTES (test cod e = 1068) 0.45 K/UL ABSOLUTE EOSINOPHILS (test c ode = 1040) 0.11 K/UL ABSOLUTE BASOPHILS (test cod e = 1069) 0.03 K/UL ABS IMMATURE GRANULOCYTES (t est code = 1020) 0.01 K/UL ABS NUCLEATED RBCS (test cod e = 24698) 0.00 K/UL CBC W/AUTO [id number] 00:00:00* Test Item Value Reference Range Interpretation Comme nts WBC (test code = 1001) 7.0 K/UL RBC (test code = 1002) 4.83 M/UL HEMOGLOBIN (test code = 1003) 15.6 G/DL HEMATOCRIT (test code = 1004) 45.5 % MCV (test code = 1005) 94.2 fL MCH (test code = 1006) 32.3 PG MCHC (test code = 1007) 34.3 G/DL RDW (test code = 1038) 12.9 % NEUTROPHILS (test code = 1008) 69.1 % LYMPHOCYTES (test code = 1010) 22.4 % MONOCYTES (test code = 1011) 6.4 % EOSINOPHILS (test code = 1012) 1.6 % BASOPHILS (test code = 1013) 0.4 % IMMATURE GRANULOCYTES (test code = 1036) 0.1 % NUCLEATED RBCS (test code = 1065) 0.0 /100WBC'S PLATELET COUNT (test code = 1015) 261 K/UL ABSOLUTE NEUTROPHILS (test c ode = 1066) 4.83 K/UL ABSOLUTE LYMPHOCYTES (test c ode = 1067) 1.57 K/UL ABSOLUTE MONOCYTES (test cod e = 1068) 0.45 K/UL ABSOLUTE EOSINOPHILS (test c ode = 1040) 0.11 K/UL ABSOLUTE BASOPHILS (test cod e = 1069) 0.03 K/UL ABS IMMATURE GRANULOCYTES (t est code = 1020) 0.01 K/UL ABS NUCLEATED RBCS (test cod e = 17507) 0.00 K/UL LIPID [id number] 00:00:00* Test Item Value Reference Range Interpretation Comme nts CHOLESTEROL (test code = 2210) 321 MG/DL TRIGLYCERIDES (test code = 2232) 315 MG/DL HDL CHOLESTEROL (test code = 2220) 46 MG/DL CALC LDL CHOL (test code = 2237) 222 MG/DL RISK RATIO LDL/HDL (test cod e = 2238) 4.83 RATIO LIPID [id number] 00:00:00* Test Item Value Reference Range Interpretation Comme nts CHOLESTEROL (test code = 2210) 321 MG/DL TRIGLYCERIDES (test code = 2232) 315 MG/DL HDL CHOLESTEROL (test code = 2220) 46 MG/DL CALC LDL CHOL (test code = 2237) 222 MG/DL RISK RATIO LDL/HDL (test cod e = 2238) 4.83 RATIO COMPREHENSIVE METABOLIC [id number] 00:00:00* Test Item Value Reference Range Interpretation Comme nts GLUCOSE (test code = 2217) 115 MG/DL BUN (test code = 2208) 19 MG/DL CREATININE (test code = 2214) 0.94 MG/DL eGFR (2020 CKD-EPI) (test co de = 65212) 71 ML/MIN/1.73 CALC BUN/CREAT (test code = 2235) 20 RATIO SODIUM (test code = 2231) 143 MEQ/L POTASSIUM (test code = 2228) 4.4 MEQ/L CHLORIDE (test code = 2215) 101 MEQ/L CARBON DIOXIDE (test code = 2206) 24 MEQ/L CALCIUM (test code = 2209) 10.2 MG/DL PROTEIN, TOTAL (test code = 2229) 7.7 G/DL ALBUMIN (test code = 2201) 4.7 G/DL CALC GLOBULIN (test code = 2240) 3.0 G/DL CALC A/G RATIO (test code = 2234) 1.6 RATIO BILIRUBIN, TOTAL (test code = 2207) 0.5 MG/DL ALKALINE PHOSPHATASE (test code = 2204) 55 U/L AST (test code = 2218) 34 U/L ALT (test code = 2219) 42 U/L COMPREHENSIVE METABOLIC [id number] 00:00:00* Test Item Value Reference Range Interpretation Comme nts GLUCOSE (test code = 2217) 115 MG/DL BUN (test code = 2208) 19 MG/DL CREATININE (test code = 2214) 0.94 MG/DL eGFR (2020 CKD-EPI) (test co de = 93351) 71 ML/MIN/1.73 CALC BUN/CREAT (test code = 2235) 20 RATIO SODIUM (test code = 2231) 143 MEQ/L POTASSIUM (test code = 2228) 4.4 MEQ/L CHLORIDE (test code = 2215) 101 MEQ/L CARBON DIOXIDE (test code = 2206) 24 MEQ/L CALCIUM (test code = 2209) 10.2 MG/DL PROTEIN, TOTAL (test code = 2229) 7.7 G/DL ALBUMIN (test code = 2201) 4.7 G/DL CALC GLOBULIN (test code = 2240) 3.0 G/DL CALC A/G RATIO (test code = 2234) 1.6 RATIO BILIRUBIN, TOTAL (test code = 2207) 0.5 MG/DL ALKALINE PHOSPHATASE (test code = 2204) 55 U/L AST (test code = 2218) 34 U/L ALT (test code = 2219) 42 U/L [id number] 00:00:00* Test Item Value Reference Range Interpretation Comme nts LIPASE (test code = 2057) 20 U/L [id number] 00:00:00* Test Item Value Reference Range Interpretation Comme nts LIPASE (test code = 2057) 20 U/L [id number] 00:00:00* Test Item Value Reference Range Interpretation Comme nts LIPASE (test code = 2057) 20 U/L [id number] 00:00:00* Test Item Value Reference Range Interpretation Comme nts AMYLASE (test code = 2204) 72 U/L [id number] 00:00:00* Test Item Value Reference Range Interpretation Comme nts AMYLASE (test code = 5) 72 U/L HIV AB/AG COMBO RFLX [id number] 00:00:00* Test Item Value Reference Range Interpretation Comme nts HIV 1/2 4TH GEN, RFLX CONF ( test code = 3514) NON-REACTIVE HIV AB/AG COMBO RFLX [id number] 00:00:00* Test Item Value Reference Range Interpretation Comme nts HIV 1/2 4TH GEN, RFLX CONF ( test code = 3514) NON-REACTIVE ACUTE HEPATITIS [id number] 00:00:00* Test Item Value Reference Range Interpretation Comme nts HEPATITIS A IgM (test code = 98185) NON-REACTIVE HEPATITIS B CORE IgM (test c ode = 4644) NON-REACTIVE HEPATITIS B SURF AG (test co de = 2739) NON-REACTIVE HEPATITIS C ANTIBODY (test c ode = 4675) NON-REACTIVE INTERPRETATION HEPATITIS A: (test code = 2552) (NOTE) INTERPRETATION HEPATITIS B: (test code = 09291) (NOTE) INTERPRETATION HEPATITIS C: (test code = 17543) (NOTE) ACUTE HEPATITIS [id number] 00:00:00* Test Item Value Reference Range Interpretation Comme nts HEPATITIS A IgM (test code = 08268) NON-REACTIVE HEPATITIS B CORE IgM (test c ode = 4644) NON-REACTIVE HEPATITIS B SURF AG (test co de = 2739) NON-REACTIVE HEPATITIS C ANTIBODY (test c ode = 4675) NON-REACTIVE INTERPRETATION HEPATITIS A: (test code = 2552) (NOTE) INTERPRETATION HEPATITIS B: (test code = 34599) (NOTE) INTERPRETATION HEPATITIS C: (test code = 75887) (NOTE) CBC W/AUTO [id number] 00:00:00* Test Item Value Reference Range Interpretation Comme nts WBC (test code = 1001) 7.0 K/UL RBC (test code = 1002) 4.83 M/UL HEMOGLOBIN (test code = 1003) 15.6 G/DL HEMATOCRIT (test code = 1004) 45.5 % MCV (test code = 1005) 94.2 fL MCH (test code = 1006) 32.3 PG MCHC (test code = 1007) 34.3 G/DL RDW (test code = 1038) 12.9 % NEUTROPHILS (test code = 1008) 69.1 % LYMPHOCYTES (test code = 1010) 22.4 % MONOCYTES (test code = 1011) 6.4 % EOSINOPHILS (test code = 1012) 1.6 % BASOPHILS (test code = 1013) 0.4 % IMMATURE GRANULOCYTES (test code = 1036) 0.1 % NUCLEATED RBCS (test code = 1065) 0.0 /100WBC'S PLATELET COUNT (test code = 1015) 261 K/UL ABSOLUTE NEUTROPHILS (test c ode = 1066) 4.83 K/UL ABSOLUTE LYMPHOCYTES (test c ode = 1067) 1.57 K/UL ABSOLUTE MONOCYTES (test cod e = 1068) 0.45 K/UL ABSOLUTE EOSINOPHILS (test c ode = 1040) 0.11 K/UL ABSOLUTE BASOPHILS (test cod e = 1069) 0.03 K/UL ABS IMMATURE GRANULOCYTES (t est code = 1020) 0.01 K/UL ABS NUCLEATED RBCS (test cod e = 49901) 0.00 K/UL CBC W/AUTO [id number] 00:00:00* Test Item Value Reference Range Interpretation Comme nts WBC (test code = 1001) 7.0 K/UL RBC (test code = 1002) 4.83 M/UL HEMOGLOBIN (test code = 1003) 15.6 G/DL HEMATOCRIT (test code = 1004) 45.5 % MCV (test code = 1005) 94.2 fL MCH (test code = 1006) 32.3 PG MCHC (test code = 1007) 34.3 G/DL RDW (test code = 1038) 12.9 % NEUTROPHILS (test code = 1008) 69.1 % LYMPHOCYTES (test code = 1010) 22.4 % MONOCYTES (test code = 1011) 6.4 % EOSINOPHILS (test code = 1012) 1.6 % BASOPHILS (test code = 1013) 0.4 % IMMATURE GRANULOCYTES (test code = 1036) 0.1 % NUCLEATED RBCS (test code = 1065) 0.0 /100WBC'S PLATELET COUNT (test code = 1015) 261 K/UL ABSOLUTE NEUTROPHILS (test c ode = 1066) 4.83 K/UL ABSOLUTE LYMPHOCYTES (test c ode = 1067) 1.57 K/UL ABSOLUTE MONOCYTES (test cod e = 1068) 0.45 K/UL ABSOLUTE EOSINOPHILS (test c ode = 1040) 0.11 K/UL ABSOLUTE BASOPHILS (test cod e = 1069) 0.03 K/UL ABS IMMATURE GRANULOCYTES (t est code = 1020) 0.01 K/UL ABS NUCLEATED RBCS (test cod e = 57429) 0.00 K/UL CBC W/AUTO [id number] 00:00:00* Test Item Value Reference Range Interpretation Comme nts WBC (test code = 1001) 7.0 K/UL RBC (test code = 1002) 4.83 M/UL HEMOGLOBIN (test code = 1003) 15.6 G/DL HEMATOCRIT (test code = 1004) 45.5 % MCV (test code = 1005) 94.2 fL MCH (test code = 1006) 32.3 PG MCHC (test code = 1007) 34.3 G/DL RDW (test code = 1038) 12.9 % NEUTROPHILS (test code = 1008) 69.1 % LYMPHOCYTES (test code = 1010) 22.4 % MONOCYTES (test code = 1011) 6.4 % EOSINOPHILS (test code = 1012) 1.6 % BASOPHILS (test code = 1013) 0.4 % IMMATURE GRANULOCYTES (test code = 1036) 0.1 % NUCLEATED RBCS (test code = 1065) 0.0 /100WBC'S PLATELET COUNT (test code = 1015) 261 K/UL ABSOLUTE NEUTROPHILS (test c ode = 1066) 4.83 K/UL ABSOLUTE LYMPHOCYTES (test c ode = 1067) 1.57 K/UL ABSOLUTE MONOCYTES (test cod e = 1068) 0.45 K/UL ABSOLUTE EOSINOPHILS (test c ode = 1040) 0.11 K/UL ABSOLUTE BASOPHILS (test cod e = 1069) 0.03 K/UL ABS IMMATURE GRANULOCYTES (t est code = 1020) 0.01 K/UL ABS NUCLEATED RBCS (test cod e = 37225) 0.00 K/UL LIPID [id number] 00:00:00* Test Item Value Reference Range Interpretation Comme nts CHOLESTEROL (test code = 2210) 321 MG/DL TRIGLYCERIDES (test code = 2232) 315 MG/DL HDL CHOLESTEROL (test code = 2220) 46 MG/DL CALC LDL CHOL (test code = 2237) 222 MG/DL RISK RATIO LDL/HDL (test cod e = 2238) 4.83 RATIO LIPID [id number] 00:00:00* Test Item Value Reference Range Interpretation Comme nts CHOLESTEROL (test code = 2210) 321 MG/DL TRIGLYCERIDES (test code = 2232) 315 MG/DL HDL CHOLESTEROL (test code = 2220) 46 MG/DL CALC LDL CHOL (test code = 2237) 222 MG/DL RISK RATIO LDL/HDL (test cod e = 2238) 4.83 RATIO COMPREHENSIVE METABOLIC [id number] 00:00:00* Test Item Value Reference Range Interpretation Comme nts GLUCOSE (test code = 2217) 115 MG/DL BUN (test code = 2208) 19 MG/DL CREATININE (test code = 2214) 0.94 MG/DL eGFR (2020 CKD-EPI) (test co de = 32068) 71 ML/MIN/1.73 CALC BUN/CREAT (test code = 2235) 20 RATIO SODIUM (test code = 2231) 143 MEQ/L POTASSIUM (test code = 2228) 4.4 MEQ/L CHLORIDE (test code = 2215) 101 MEQ/L CARBON DIOXIDE (test code = 2206) 24 MEQ/L CALCIUM (test code = 2209) 10.2 MG/DL PROTEIN, TOTAL (test code = 2229) 7.7 G/DL ALBUMIN (test code = 2201) 4.7 G/DL CALC GLOBULIN (test code = 2240) 3.0 G/DL CALC A/G RATIO (test code = 2234) 1.6 RATIO BILIRUBIN, TOTAL (test code = 2207) 0.5 MG/DL ALKALINE PHOSPHATASE (test code = 2204) 55 U/L AST (test code = 2218) 34 U/L ALT (test code = 2219) 42 U/L COMPREHENSIVE METABOLIC [id number] 00:00:00* Test Item Value Reference Range Interpretation Comme nts GLUCOSE (test code = 2217) 115 MG/DL BUN (test code = 2208) 19 MG/DL CREATININE (test code = 2214) 0.94 MG/DL eGFR (2020 CKD-EPI) (test co de = 83741) 71 ML/MIN/1.73 CALC BUN/CREAT (test code = 2235) 20 RATIO SODIUM (test code = 2231) 143 MEQ/L POTASSIUM (test code = 2228) 4.4 MEQ/L CHLORIDE (test code = 2215) 101 MEQ/L CARBON DIOXIDE (test code = 2206) 24 MEQ/L CALCIUM (test code = 2209) 10.2 MG/DL PROTEIN, TOTAL (test code = 2229) 7.7 G/DL ALBUMIN (test code = 2201) 4.7 G/DL CALC GLOBULIN (test code = 2240) 3.0 G/DL CALC A/G RATIO (test code = 2234) 1.6 RATIO BILIRUBIN, TOTAL (test code = 2207) 0.5 MG/DL ALKALINE PHOSPHATASE (test code = 2204) 55 U/L AST (test code = 2218) 34 U/L ALT (test code = 2219) 42 U/L [id number] 00:00:00* Test Item Value Reference Range Interpretation Comme nts LIPASE (test code = 2057) 20 U/L [id number] 00:00:00* Test Item Value Reference Range Interpretation Comme nts LIPASE (test code = 2057) 20 U/L [id number] 00:00:00* Test Item Value Reference Range Interpretation Comme nts LIPASE (test code = 2057) 20 U/L [id number] 00:00:00* Test Item Value Reference Range Interpretation Comme nts AMYLASE (test code = 5) 72 U/L [id number] 00:00:00* Test Item Value Reference Range Interpretation Comme nts AMYLASE (test code = 5) 72 U/L HIV AB/AG COMBO RFLX [id number] 00:00:00* Test Item Value Reference Range Interpretation Comme nts HIV 1/2 4TH GEN, RFLX CONF ( test code = 3514) NON-REACTIVE HIV AB/AG COMBO RFLX [id number] 00:00:00* Test Item Value Reference Range Interpretation Comme nts HIV 1/2 4TH GEN, RFLX CONF ( test code = 3514) NON-REACTIVE ACUTE HEPATITIS [id number] 00:00:00* Test Item Value Reference Range Interpretation Comme nts HEPATITIS A IgM (test code = 51828) NON-REACTIVE HEPATITIS B CORE IgM (test c ode = 4644) NON-REACTIVE HEPATITIS B SURF AG (test co de = 2739) NON-REACTIVE HEPATITIS C ANTIBODY (test c ode = 4691) NON-REACTIVE INTERPRETATION HEPATITIS A: (test code = 2552) (NOTE) INTERPRETATION HEPATITIS B: (test code = 05326) (NOTE) INTERPRETATION HEPATITIS C: (test code = 51560) (NOTE) ACUTE HEPATITIS [id number] 00:00:00* Test Item Value Reference Range Interpretation Comme nts HEPATITIS A IgM (test code = 39777) NON-REACTIVE HEPATITIS B CORE IgM (test c ode = 4644) NON-REACTIVE HEPATITIS B SURF AG (test co de = 2739) NON-REACTIVE HEPATITIS C ANTIBODY (test c ode = 4664) NON-REACTIVE INTERPRETATION HEPATITIS A: (test code = 2552) (NOTE) INTERPRETATION HEPATITIS B: (test code = 09299) (NOTE) INTERPRETATION HEPATITIS C: (test code = 19125) (NOTE) CBC W/AUTO [id number] 00:00:00* Test Item Value Reference Range Interpretation Comme nts WBC (test code = 1001) 7.0 K/UL RBC (test code = 1002) 4.83 M/UL HEMOGLOBIN (test code = 1003) 15.6 G/DL HEMATOCRIT (test code = 1004) 45.5 % MCV (test code = 1005) 94.2 fL MCH (test code = 1006) 32.3 PG MCHC (test code = 1007) 34.3 G/DL RDW (test code = 1038) 12.9 % NEUTROPHILS (test code = 1008) 69.1 % LYMPHOCYTES (test code = 1010) 22.4 % MONOCYTES (test code = 1011) 6.4 % EOSINOPHILS (test code = 1012) 1.6 % BASOPHILS (test code = 1013) 0.4 % IMMATURE GRANULOCYTES (test code = 1036) 0.1 % NUCLEATED RBCS (test code = 1065) 0.0 /100WBC'S PLATELET COUNT (test code = 1015) 261 K/UL ABSOLUTE NEUTROPHILS (test c ode = 1066) 4.83 K/UL ABSOLUTE LYMPHOCYTES (test c ode = 1067) 1.57 K/UL ABSOLUTE MONOCYTES (test cod e = 1068) 0.45 K/UL ABSOLUTE EOSINOPHILS (test c ode = 1040) 0.11 K/UL ABSOLUTE BASOPHILS (test cod e = 1069) 0.03 K/UL ABS IMMATURE GRANULOCYTES (t est code = 1020) 0.01 K/UL ABS NUCLEATED RBCS (test cod e = 26675) 0.00 K/UL CBC W/AUTO [id number] 00:00:00* Test Item Value Reference Range Interpretation Comme nts WBC (test code = 1001) 7.0 K/UL RBC (test code = 1002) 4.83 M/UL HEMOGLOBIN (test code = 1003) 15.6 G/DL HEMATOCRIT (test code = 1004) 45.5 % MCV (test code = 1005) 94.2 fL MCH (test code = 1006) 32.3 PG MCHC (test code = 1007) 34.3 G/DL RDW (test code = 1038) 12.9 % NEUTROPHILS (test code = 1008) 69.1 % LYMPHOCYTES (test code = 1010) 22.4 % MONOCYTES (test code = 1011) 6.4 % EOSINOPHILS (test code = 1012) 1.6 % BASOPHILS (test code = 1013) 0.4 % IMMATURE GRANULOCYTES (test code = 1036) 0.1 % NUCLEATED RBCS (test code = 1065) 0.0 /100WBC'S PLATELET COUNT (test code = 1015) 261 K/UL ABSOLUTE NEUTROPHILS (test c ode = 1066) 4.83 K/UL ABSOLUTE LYMPHOCYTES (test c ode = 1067) 1.57 K/UL ABSOLUTE MONOCYTES (test cod e = 1068) 0.45 K/UL ABSOLUTE EOSINOPHILS (test c ode = 1040) 0.11 K/UL ABSOLUTE BASOPHILS (test cod e = 1069) 0.03 K/UL ABS IMMATURE GRANULOCYTES (t est code = 1020) 0.01 K/UL ABS NUCLEATED RBCS (test cod e = 76562) 0.00 K/UL CBC W/AUTO [id number] 00:00:00* Test Item Value Reference Range Interpretation Comme nts WBC (test code = 1001) 7.0 K/UL RBC (test code = 1002) 4.83 M/UL HEMOGLOBIN (test code = 1003) 15.6 G/DL HEMATOCRIT (test code = 1004) 45.5 % MCV (test code = 1005) 94.2 fL MCH (test code = 1006) 32.3 PG MCHC (test code = 1007) 34.3 G/DL RDW (test code = 1038) 12.9 % NEUTROPHILS (test code = 1008) 69.1 % LYMPHOCYTES (test code = 1010) 22.4 % MONOCYTES (test code = 1011) 6.4 % EOSINOPHILS (test code = 1012) 1.6 % BASOPHILS (test code = 1013) 0.4 % IMMATURE GRANULOCYTES (test code = 1036) 0.1 % NUCLEATED RBCS (test code = 1065) 0.0 /100WBC'S PLATELET COUNT (test code = 1015) 261 K/UL ABSOLUTE NEUTROPHILS (test c ode = 1066) 4.83 K/UL ABSOLUTE LYMPHOCYTES (test c ode = 1067) 1.57 K/UL ABSOLUTE MONOCYTES (test cod e = 1068) 0.45 K/UL ABSOLUTE EOSINOPHILS (test c ode = 1040) 0.11 K/UL ABSOLUTE BASOPHILS (test cod e = 1069) 0.03 K/UL ABS IMMATURE GRANULOCYTES (t est code = 1020) 0.01 K/UL ABS NUCLEATED RBCS (test cod e = 38317) 0.00 K/UL LIPID [id number] 00:00:00* Test Item Value Reference Range Interpretation Comme nts CHOLESTEROL (test code = 2210) 321 MG/DL TRIGLYCERIDES (test code = 2232) 315 MG/DL HDL CHOLESTEROL (test code = 2220) 46 MG/DL CALC LDL CHOL (test code = 2237) 222 MG/DL RISK RATIO LDL/HDL (test cod e = 2238) 4.83 RATIO LIPID [id number] 00:00:00* Test Item Value Reference Range Interpretation Comme nts CHOLESTEROL (test code = 2210) 321 MG/DL TRIGLYCERIDES (test code = 2232) 315 MG/DL HDL CHOLESTEROL (test code = 2220) 46 MG/DL CALC LDL CHOL (test code = 2237) 222 MG/DL RISK RATIO LDL/HDL (test cod e = 2238) 4.83 RATIO COMPREHENSIVE METABOLIC [id number] 00:00:00* Test Item Value Reference Range Interpretation Comme nts GLUCOSE (test code = 2217) 115 MG/DL BUN (test code = 2208) 19 MG/DL CREATININE (test code = 2214) 0.94 MG/DL eGFR (2020 CKD-EPI) (test co de = 47868) 71 ML/MIN/1.73 CALC BUN/CREAT (test code = 2235) 20 RATIO SODIUM (test code = 2231) 143 MEQ/L POTASSIUM (test code = 2228) 4.4 MEQ/L CHLORIDE (test code = 2215) 101 MEQ/L CARBON DIOXIDE (test code = 2206) 24 MEQ/L CALCIUM (test code = 2209) 10.2 MG/DL PROTEIN, TOTAL (test code = 2229) 7.7 G/DL ALBUMIN (test code = 2201) 4.7 G/DL CALC GLOBULIN (test code = 2240) 3.0 G/DL CALC A/G RATIO (test code = 2234) 1.6 RATIO BILIRUBIN, TOTAL (test code = 2207) 0.5 MG/DL ALKALINE PHOSPHATASE (test code = 2204) 55 U/L AST (test code = 2218) 34 U/L ALT (test code = 2219) 42 U/L COMPREHENSIVE METABOLIC [id number] 00:00:00* Test Item Value Reference Range Interpretation Comme nts GLUCOSE (test code = 2217) 115 MG/DL BUN (test code = 2208) 19 MG/DL CREATININE (test code = 2214) 0.94 MG/DL eGFR (2020 CKD-EPI) (test co de = 25130) 71 ML/MIN/1.73 CALC BUN/CREAT (test code = 2235) 20 RATIO SODIUM (test code = 2231) 143 MEQ/L POTASSIUM (test code = 2228) 4.4 MEQ/L CHLORIDE (test code = 2215) 101 MEQ/L CARBON DIOXIDE (test code = 2206) 24 MEQ/L CALCIUM (test code = 2209) 10.2 MG/DL PROTEIN, TOTAL (test code = 2229) 7.7 G/DL ALBUMIN (test code = 2201) 4.7 G/DL CALC GLOBULIN (test code = 2240) 3.0 G/DL CALC A/G RATIO (test code = 2234) 1.6 RATIO BILIRUBIN, TOTAL (test code = 2207) 0.5 MG/DL ALKALINE PHOSPHATASE (test code = 2204) 55 U/L AST (test code = 2218) 34 U/L ALT (test code = 2219) 42 U/L [id number] 00:00:00* Test Item Value Reference Range Interpretation Comme nts LIPASE (test code = 2057) 20 U/L [id number] 00:00:00* Test Item Value Reference Range Interpretation Comme nts LIPASE (test code = 2057) 20 U/L [id number] 00:00:00* Test Item Value Reference Range Interpretation Comme nts LIPASE (test code = 2058) 20 U/L [id number] 00:00:00* Test Item Value Reference Range Interpretation Comme nts AMYLASE (test code = 2205) 72 U/L [id number] 00:00:00* Test Item Value Reference Range Interpretation Comme nts AMYLASE (test code = 2205) 72 U/L SARS-CoV-2 (COVID-19) by RT-PCR (HIGH RISK)2021-04-06 00:00:00* Test Item Value Reference Range Interpretation Comme nts SARS-CoV-2 INTERPRETATION (test code = 03889) NEGATIVE SOURCE (test code = 66467) NASOPHARYNGEAL SARS-CoV-2 (COVID-19) by RT-PCR (HIGH RISK)2021-04-06 00:00:00* Test Item Value Reference Range Interpretation Comme nts SARS-CoV-2 INTERPRETATION (test code = 40084) NEGATIVE SOURCE (test code = 66736) NASOPHARYNGEAL SARS-CoV-2 (COVID-19) by RT-PCR (HIGH RISK)2021-04-06 00:00:00* Test Item Value Reference Range Interpretation Comme nts SARS-CoV-2 INTERPRETATION (test code = 38453) NEGATIVE SOURCE (test code = 71061) NASOPHARYNGEAL SARS-CoV-2 (COVID-19) by RT-PCR (HIGH RISK)2021-04-06 00:00:00* Test Item Value Reference Range Interpretation Comme nts SARS-CoV-2 INTERPRETATION (test code = 20213) NEGATIVE SOURCE (test code = 90602) NASOPHARYNGEAL SARS-CoV-2 (COVID-19) by RT-PCR (HIGH RISK)2021-04-06 00:00:00* Test Item Value Reference Range Interpretation Comme nts SARS-CoV-2 INTERPRETATION (test code = 61265) NEGATIVE SOURCE (test code = 22200) NASOPHARYNGEAL SARS-CoV-2 (COVID-19) by RT-PCR (HIGH RISK)2021-04-06 00:00:00* Test Item Value Reference Range Interpretation Comme nts SARS-CoV-2 INTERPRETATION (test code = 98384) NEGATIVE SOURCE (test code = 07240) NASOPHARYNGEAL PAP TEST, THINPREP, [id number] 00:00:00* Test Item Value Reference Range Interpretation Comme nts SOURCE: (test code = 8001) Cervical/Endocervical SLIDES: (test code = 8011) 1 LMP: (test code = 8021) SEE NOTE SPECIMEN ADEQUACY: (test code = 39236) (NOTE) INTERPRETATION: (test code = 21699) NILM/NO EPITH. ABNORMALITY;SEE BELOW PECAN GATHERER: (test code = 8101) DILCIA Weber(ASCP)IAC LOCATION: (test code = 81399) (NOTE) CPT: (test code = 8140) (NOTE) PAP TEST, THINPREP, [id number] 00:00:00* Test Item Value Reference Range Interpretation Comme nts SOURCE: (test code = 8001) Cervical/Endocervical SLIDES: (test code = 8011) 1 LMP: (test code = 8021) SEE NOTE SPECIMEN ADEQUACY: (test code = 08440) (NOTE) INTERPRETATION: (test code = 16365) NILM/NO EPITH. ABNORMALITY;SEE BELOW PECAN GATHERER: (test code = 8101) DILCIA Weber(ASCP)IAC LOCATION: (test code = 59026) (NOTE) CPT: (test code = 8140) (NOTE) HPV HIGH RISK WITH GENOTYPE, [id number] 00:00:00* Test Item Value Reference Range Interpretation Comme nts HPV HIGH RISK INTERP (test c ode = 80721) NEGATIVE HPV 16 (test code = 38801) NEGATIVE HPV 18 (test code = 23970) NEGATIVE HPV, HR, OTHER GENOTYPES (te st code = 37777) NEGATIVE HPV HIGH RISK WITH GENOTYPE, [id number] 00:00:00* Test Item Value Reference Range Interpretation Comme nts HPV HIGH RISK INTERP (test c ode = 24624) NEGATIVE HPV 16 (test code = 38976) NEGATIVE HPV 18 (test code = 36052) NEGATIVE HPV, HR, OTHER GENOTYPES (te st code = 50873) NEGATIVE PAP TEST, THINPREP, [id number] 00:00:00* Test Item Value Reference Range Interpretation Comme nts SOURCE: (test code = 8001) Cervical/Endocervical SLIDES: (test code = 8011) 1 LMP: (test code = 8021) SEE NOTE SPECIMEN ADEQUACY: (test code = 63272) (NOTE) INTERPRETATION: (test code = 30640) NILM/NO EPITH. ABNORMALITY;SEE BELOW PECAN GATHERER: (test code = 8101) DILCIA Weber(ASCP)IAC LOCATION: (test code = 44530) (NOTE) CPT: (test code = 8140) (NOTE) PAP TEST, THINPREP, [id number] 00:00:00* Test Item Value Reference Range Interpretation Comme nts SOURCE: (test code = 8001) Cervical/Endocervical SLIDES: (test code = 8011) 1 LMP: (test code = 8021) SEE NOTE SPECIMEN ADEQUACY: (test code = 38661) (NOTE) INTERPRETATION: (test code = 35031) NILM/NO EPITH. ABNORMALITY;SEE BELOW PECAN GATHERER: (test code = 8101) DILCIA Weber(ASCP)IAC LOCATION: (test code = 60807) (NOTE) CPT: (test code = 8140) (NOTE) HPV HIGH RISK WITH GENOTYPE, [id number] 00:00:00* Test Item Value Reference Range Interpretation Comme nts HPV HIGH RISK INTERP (test c ode = 82007) NEGATIVE HPV 16 (test code = 41054) NEGATIVE HPV 18 (test code = 39489) NEGATIVE HPV, HR, OTHER GENOTYPES (te st code = 42894) NEGATIVE HPV HIGH RISK WITH GENOTYPE, [id number] 00:00:00* Test Item Value Reference Range Interpretation Comme nts HPV HIGH RISK INTERP (test c ode = 43675) NEGATIVE HPV 16 (test code = 04642) NEGATIVE HPV 18 (test code = 70276) NEGATIVE HPV, HR, OTHER GENOTYPES (te st code = 29373) NEGATIVE PAP TEST, THINPREP, [id number] 00:00:00* Test Item Value Reference Range Interpretation Comme nts SOURCE: (test code = 8001) Cervical/Endocervical SLIDES: (test code = 8011) 1 LMP: (test code = 8021) SEE NOTE SPECIMEN ADEQUACY: (test code = 43953) (NOTE) INTERPRETATION: (test code = 56991) NILM/NO EPITH. ABNORMALITY;SEE BELOW PECAN GATHERER: (test code = 8101) DILCIA Weber(ASCP)IAC LOCATION: (test code = 12497) (NOTE) CPT: (test code = 8140) (NOTE) PAP TEST, THINPREP, [id number] 00:00:00* Test Item Value Reference Range Interpretation Comme nts SOURCE: (test code = 8001) Cervical/Endocervical SLIDES: (test code = 8011) 1 LMP: (test code = 8021) SEE NOTE SPECIMEN ADEQUACY: (test code = 61193) (NOTE) INTERPRETATION: (test code = 01108) NILM/NO EPITH. ABNORMALITY;SEE BELOW PECAN GATHERER: (test code = 8101) DILCIA Weber(ASCP)IAC LOCATION: (test code = 60541) (NOTE) CPT: (test code = 8140) (NOTE) HPV HIGH RISK WITH GENOTYPE, [id number] 00:00:00* Test Item Value Reference Range Interpretation Comme nts HPV HIGH RISK INTERP (test c ode = 63892) NEGATIVE HPV 16 (test code = 41217) NEGATIVE HPV 18 (test code = 25179) NEGATIVE HPV, HR, OTHER GENOTYPES (te st code = 52108) NEGATIVE HPV HIGH RISK WITH GENOTYPE, [id number] 00:00:00* Test Item Value Reference Range Interpretation Comme nts HPV HIGH RISK INTERP (test c ode = 08881) NEGATIVE HPV 16 (test code = 07823) NEGATIVE HPV 18 (test code = 85299) NEGATIVE HPV, HR, OTHER GENOTYPES (te st code = 27282) NEGATIVE VAGINAL PATHOGENS DNA [id number] 00:00:00* Test Item Value Reference Range Interpretation Comme nts ISI SPECIES (test code = ) NEGATIVE G. VAGINALIS (test code = 63391) POSITIVE T. VAGINALIS (test code = 68576) NEGATIVE VAGINAL PATHOGENS DNA [id number] 00:00:00* Test Item Value Reference Range Interpretation Comme nts ISI SPECIES (test code = ) NEGATIVE G. VAGINALIS (test code = 06744) POSITIVE T. VAGINALIS (test code = 23272) NEGATIVE VAGINAL PATHOGENS DNA [id number] 00:00:00* Test Item Value Reference Range Interpretation Comme nts ISI SPECIES (test code = 46088) NEGATIVE G. VAGINALIS (test code = 07386) POSITIVE T. VAGINALIS (test code = 39790) NEGATIVE VAGINAL PATHOGENS DNA [id number] 00:00:00* Test Item Value Reference Range Interpretation Comme nts ISI SPECIES (test code = 39303) NEGATIVE G. VAGINALIS (test code = 05851) POSITIVE T. VAGINALIS (test code = 80594) NEGATIVE VAGINAL PATHOGENS DNA [id number] 00:00:00* Test Item Value Reference Range Interpretation Comme nts ISI SPECIES (test code = 40032) NEGATIVE G. VAGINALIS (test code = 64931) POSITIVE T. VAGINALIS (test code = 72291) NEGATIVE VAGINAL PATHOGENS DNA [id number] 00:00:00* Test Item Value Reference Range Interpretation Comme nts ISI SPECIES (test code = 68244) NEGATIVE G. VAGINALIS (test code = 58985) POSITIVE T. VAGINALIS (test code = 43708) NEGATIVE History and Physical Notes Date/Time Note Provider Source 2023-11-11 16:19:13 [id number] T16:19:13 New Patient ConsultReferring Physician: I am seeing this patient at the request of Ksenia Peoples,*Reason for Consultation: Screening colonoscopy. Constipation, periumbilical abdominal pain. GERD, nausea. Macrocytosis.HPI: This is a 58 year old female here for a screening colonoscopy evaluation. The patient denies any GI bleeding, hemetemesis, melena or hematochezia. The patient has also not had any weight loss or constitutional symptoms. There is no history of liver disease. She has never had a colonoscopy before. She has no family history of colon cancer. She does not drink much alcohol. She is not on any anticoagulation.Additionally, she describes longstanding difficulty with periumbilical abdominal pain. She describes this as a bloating and stabbing sensation. It is intermittent, but does seem to occur on a daily basis. She has been using dicyclomine as needed which does help with her symptoms. Additionally, she describes difficulty with constipation and incomplete evacuation. As above, she does not have any melena or hematochezia. Whenever she has a good bowel movement, it does seem to help with her symptoms. Her workup in the [facility] has included the followin07/2023 hemoglobin unremarkable, MCV 104; LFT, amylase/lipase, TSH unremarkable09/2023 CT noncontrast: No acute abnormalities. Diverticulosis.09/2023 ultrasound: Fatty liver. Prior cholecystectomy.Over the course of the last year, she is also difficulty with fairly constant nausea. She does not have much difficulty with emesis other than a rare episode of nonbloody and nonbilious emesis. She also describes difficulty with GERD including typical heartburn symptoms which occur on a daily basis. In the past, Phenergan has helped significantly with her symptoms. She has tried ondansetron which does not help much.Past Surgical History:Procedure Laterality DateLIVER REPAIR 1988liver laceration repair after gallbladder surgeryOVARIECTOMY Right 2014REMOVAL OF GALLBLADDER 1988Past Medical History:Diagnosis DatePrediabetesRight ovarian cystdiagnosed age 50Current Outpatient Medications on File Prior to VisitMedication Sig Dispense RefillAtorvastatin Calcium 20 MG oral Tablet Take 1 tablet (20 mg total) by mouth daily. 90 tablet 1Nicotine 21 MG/24HR transdermal PATCH [address] 1 patch onto the skin every 24 hours. 30 patch 1Omega-3 Fatty Acids (Black-3 Fish Oil) 1000 MG oral Capsule Take 1 capsule by mouth 2 times daily. 180 capsule 1Phentermine HCl 37.5 MG oral Tablet Take 1 tablet (37.5 mg total) by mouth every morning (before breakfast). 30 tablet 0hydrOXYzine HCl 25 MG oral Tablet Take 1/2-1 tablet po three times a day or QHS PRN for anxiety. (Patient not taking: Reported on 11/11/2023.) 15 tablet 0Ondansetron HCl 4 MG oral Tablet Take 1 tablet (4 mg total) by mouth every 8 hours as needed for nausea. (Patient not taking: Reported on 11/11/2023.) 15 tablet 0Sumatriptan Succinate 100 MG oral Tablet Take one tablet by mouth x 1 as needed for migraine; If headache is unresolved in 2 hours, take one more tablet by mouth. DO NOT EXCEED 200 MG IN A 24 HOUR PERIOD. Dispense 1 pack. (Patient not taking: Reported on 11/11/2023.) 9 tablet 0No current facility-administered medications on file prior to visit.No Known AllergiesFamily HistoryProblem Relation Name Age of OnsetLung Cancer MotherDiabetes Mellitus FatherHeart attack SisterNo Known Problems Maternal GrandmotherNo Known Problems Maternal GrandfatherHeart attack Paternal GrandmotherLung Cancer Paternal GrandfatherSocial HistorySocioeconomic HistoryMarital status: Legally SeparatedSpouse name: Not on fileNumber of children: Not on fileYears of education: Not on fileHighest education level: Not on fileOccupational HistoryNot on fileTobacco UseSmoking status: Every DayCurrent packs/day: 1.00Average packs/day: 1 pack/day for 40.0 years (40.0 ttl pk-yrs)Types: CigarettesSmokeless tobacco: Not on fileVaping UseVaping status: Never UsedSubstance and Sexual ActivityAlcohol use: Not CurrentlyDrug use: NeverSexual activity: Not on fileOther Topics ConcernNot on fileSocial History NarrativeNot on fileSocial Determinants of HealthFinancial Resource Strain: Not on fileFood Insecurity: Not on fileTransportation Needs: Not on filePhysical Activity: Not on fileStress: Not on fileSocial Connections: Not on fileIntimate Partner Violence: Not on fileHousing Stability: Not on fileROS: 05/09 systems reviewed, negative except for as mentioned in HPI.PE:BP 109/73 (Side: Right Arm, Position: SITTING, Cuff Size: Medium Adult) | Pulse 84 | Resp 16 | Ht 5' 4" (1.626 m) | Wt 174 lb (78.9 kg) | BMI 29.87 kg/m?Gen: NAD, AO x 3HEENT: PERRLA EOMI, MMM, No icterusAb: soft, nt, nd, +bs, no rebound/guarding, no HSMCV: No ext c/c/e, wwpSkin: No rashes, jaundice, petechiaePsych: Appropriate mood and affectNeuro: CN II-XII grossly intactGU: DeferredLabs and Diagnostic Tests:The labs, and pertinent imaging studies have been reviewed in the record.A/P: This is a 58 year old female who has been referred for issues.1. Colon CA screening: We discussed the procedure in detail today along with the risks and known complications including (but not limited to) the risk of infection, bleeding, perforation, complication of the sedative medications, and lesion miss rate. A formal consent form will be signed on the day of the procedure. We did also discuss alternatives to the procedure.--Screening colonoscopy with MARICHUY Renee--Timeframe for future colonoscopies will depend on pathology2. GERD, nausea: Occurring over the last year.--Start omeprazole 40 mg daily--EGD, CS - bx HP--Lifestyle modifications: weight loss, elevate head of bed, avoid tight clothing--Dietary modifications to decrease TLESR: Avoid caffeine, chocolate, fatty meals, meals 4h prior to bedtime3. Constipation, periumbilical pain: Recent CT did not show any significant abnormalities, although, this was a noncontrast study. She has had improvement with dicyclomine and does not have any alarm signs or symptoms.--EGD and colonoscopy as above--Use MiraLAX 17 g daily to twice daily--Mental as needed4. Fatty liver:--Recheck LFTs--Diet, exercise, weight loss5. Macrocytosis:--CBC, B12, folate--Heme referral if persistent macrocytosisRV 3 mos.Thank you for the consult.A copy of this report will be sent [place] the [place] [id number] and physical [id number]:18History and physical [id number] for patient [id number] and physical noteLNNARRATIVEFormatted C-CDA narrative [facility] [facility] [facility]).[id number] [id number]:24:181.2.840.006942.1.7 2.3.15|1.2.840.078638.1.13.131.2.7.2. [id number] [facility] Notes Date/Time Note Provider Source 2023-09-10 10:53:18 [id number] Zm/Y9A8PnMxcHpXBK /U+tplvF+xL5lf/lmGlpSpbX7gH8484-29-86 T10:53:18 Chief ComplaintPatient presents withFollow-Up VisitFollow up visit to discuss labsPaula Brenda Clineectronically signed by Carie Alvarez LVN at 09/10/2023 10:53 AM [id number] XvrrAV5767-16-04K74:53:48Nurse NoteTXT1.2.840.755116.1.13.131.2.7.2. [id number] for patient vegq97295-9Pxzxc NoteLNNARRATIVEFormatted C-CDA narrative [facility] [facility][id number]:53:481.2.840.128287.1.7 2.3.15|1.2.840.613043.1.13.131.2.7.2. [id number] [facility] 2023-08-14 11:16:44 JeFwzuEfC8hQYU3LvL9x sxV8g6uPHnfd1q46A 4sdyK6QrnkGkdP/UucNt+FEd+So2501-71-23 T11:16:44 Chief ComplaintPatient presents withPhysicalPhysical and fasting labsPaBrenda Germanectronically signed by Carie Alvarez LVN at 08/14/2023 12:55 PM [id number] MkcgCP4065-33-72W52:55:15Nurse NoteTXT1.2.840.917788.1.13.131.2.7.2. [id number] for patient fxyy43478-8Ojuzg NoteLNNARRATIVEFormatted C-CDA narrative text[id number] 4166-04-18R58:55:151.2.840.347040.1.7 2.3.15|1.2.840.405870.1.13.131.2.7.2. [id number] [facility] 2023-07-30 11:02:48 PLyCrUnCvkAjjdYF7+7r tRtwsOAC02jC8KeG9 xwwi+R7GApvrD6HBZZ5360mSY3T0591-84-77 T11:02:48 Chief ComplaintPatient presents withNew PatientNew patient established [facility]Brenda Germanectronically signed by Carie Alvarez LVN at 07/30/2023 11:03 AM [id number] AxukYO6108-32-84Z95:03:04Nurse NoteTXT1.2.840.922852.1.13.131.2.7.2. [id number] for patient ewyq52318-9Qsfcz NoteLNNARRATIVEFormatted C-CDA narrative [facility] [place], [place] [id number] [id number]:03:041.2.840.355409.1.7 2.3.15|1.2.840.338479.1.13.131.2.7.2. [id number] [facility]
[2023-11-25] MEDS ORDERED: ASPIRIN 81 MG CHEWABLE TABLET ONE (14:00)
[2023-11-25 14:07] LABS: Absolute Eosinophils 0.2 K/uL (0-0.5); Absolute Lymphocytes (CBC) 1.6 K/uL (0.7-4.9); Absolute Monocytes 0.5 K/uL (0.1-1.3); Absolute Neutrophil 4.8 K/uL (1.8-8.0); Basophils % 0.5 % (0-1.3); Eosinophils % 2.2 % (0-4.4); Hematocrit 43.8 % (36.0-45.0); Hemoglobin 14.5 g/dL (12.0-15.0); Lymphocytes % 22.7 % (15.3-44.8); MCH 33.3 pg (27.0-35.0); MCHC 33.2 g/dL (32.0-36.0); MCV 100.4 fL (80-100); MPV 8.4 fL (7.6-11.3); Monocytes % 7.2 % (3.3-12.3); Neutrophils % 67.4 % (41.7-73.7); PT Prothrombin Time 10.2 SECONDS (9.5-12.5); Platelets 209 thou/uL (152-406); Protime INR 0.93; RBC Red Blood Cell Count 4.36 M/uL (3.86-4.86); Red Cell Distribution Width 14.1 % (12.1-15.2)
--- NOTE | 2023-11-25 14:12 | RAD REPORT ---
EXAM DESCRIPTION: RAD - Chest Single View - 11/25/2023 2:06 pm CLINICAL HISTORY: CHEST PAIN Chest pain. COMPARISON: Chest Single View dated 06/23/2017 FINDINGS: Portable technique limits examination quality. The lungs are grossly clear. The heart is normal in size. No displaced fractures. IMPRESSION: No acute intrathoracic process suspected.
--- NOTE | 2023-11-25 14:20 | RAD REPORT ---
EXAM DESCRIPTION: CT - Head Brain Wo Cont - 11/25/2023 2:11 pm CLINICAL HISTORY: APHASIA Headache, drowsiness, aphasia COMPARISON: Head Brain Wo Cont dated 06/23/2017 TECHNIQUE: All CT scans are performed using dose optimization technique as appropriate and may inclu de automated exposure control or mA/KV adjustment according to patient size. FINDINGS: No intracranial hemorrhage, hydrocephalus or extra-axial fluid collection.No areas of brai n edema or evidence of midline shift. The paranasal sinuses and mastoids are clear. The calvarium is intact. IMPRESSION: No acute intracranial abnormality.
[2023-11-25 14:32] LABS: Albumin 3.7 g/dL (3.4-5.0); Albumin/Globulin Ratio 0.9 (1.1-1.8); Anion Gap 4.8 mEq/L (5.0-15.0); Bilirubin Direct 0.2 mg/dL (0-0.2); Bilirubin Indirect, Calculated 0.2 mg/dL (0.2-0.8); Bilirubin Total 0.4 mg/dL (0.2-1.0); Magnesium 2.3 mg/dL (1.6-2.4); Potassium 3.8 mEq/L (3.5-5.1); Protein, Total 7.7 g/dL (6.4-8.2); Troponin High Sensitivity 5.1 pg/mL (<58.9)
--- NOTE | 2023-11-25 16:35 | ER ---
Nurse's Notes [facility] Name: Sharyn Sanchez Age: 58 yrs Sex: Female : 1965 Arrival Date: 11/25/2023 Time: 13:32 Bed 15 Private MD: Diagnosis: Chest pain, unspecified Presentation: 11/24 13:43 Chief complaint: Patient states: midsternal chest pain radiating to right jaw X 1 hour. iw Coronavirus screen: At this time, the client does not indicate any symptoms associated with coronavirus-19. Ebola Screen: Patient negative for fever greater than or equal to 101.5 degrees Fahrenheit, and additional compatible Ebola Virus Disease symptoms Patient denies exposure to infectious person. Patient denies travel to an Ebola-affected area in the 21 days before illness onset. No symptoms or risks identified at this time. Initial Sepsis Screen: Does the patient meet any 2 criteria? No. Patient's initial sepsis screen is negative. Does the patient have a suspected source of infection? No. Patient's initial sepsis screen is negative. Risk Assessment: Do you want to hurt yourself or someone else? Patient reports no desire to harm self or others. Onset of symptoms was November 25, 2023. 13:43 Method Of Arrival: Ambulatory iw 13:43 Acuity: JERAMIE 2 iw Triage Assessment: 13:48 General: Appears in no apparent distress. uncomfortable, Behavior is cooperative, bp appropriate for age, anxious. Pain: Complains of pain in chest. EENT: No deficits noted. Cardiovascular: Reports chest pain. Respiratory: No deficits noted. Historical: - Allergies: 13:44 No Known Allergies; iw - PMHx: 13:44 Hypercholesterolemia; pre diabetic; iw 13:44 fatty liver; iw - Immunization history:: Adult Immunizations up to date. - Infectious Disease History:: Denies. - Social history:: Smoking status: Patient reports the use of cigarette tobacco products, unknown amount. Screenin:50 [facility] ED Fall Risk Assessment (Adult) History of falling in the last 3 months, bp including since admission No falls in past 3 months (0 pts). Abuse screen: Denies threats or abuse. Denies injuries from another. Nutritional screening: No deficits noted. Tuberculosis screening: No symptoms or risk factors identified. Assessment: 13:49 General: Appears in no apparent distress. Behavior is cooperative, appropriate for age, bp anxious. Pain: Pain radiates to left jaw Pain began 1 hour ago. Neuro: No deficits noted. Cardiovascular: Reports chest pain. Respiratory: No deficits noted. GI: No signs and/or symptoms were reported involving the gastrointestinal system. : No signs and/or symptoms were reported regarding the genitourinary system. Musculoskeletal: Circulation, motion, and sensation intact. Range of motion: intact in all extremities. 14:20 Reassessment: RECD PT FROM CT. bp 16:24 Reassessment: Patient appears in no apparent distress at this time. Patient and/or nj1 family updated on plan of care and expected duration. Pain level reassessed. Patient is alert, oriented x 3, equal unlabored respirations, skin warm/dry/pink. Patient denies pain at this time. Vital Signs: 14:20 BP 112 / 71; Pulse 83; Resp 16; Pulse Ox 97% ; bp 15:30 BP 98 / 66; Pulse 79; Resp 16; Pulse Ox 97% ; nj1 16:24 BP 97 / 61; Pulse 71; Resp 16; Pulse Ox 99% on R/A; Pain 0/10; nj1 16:24 Pain Scale: Adult [facility] ED Course: 13:33 Patient arrived in ED. mg5 13:39 Reema Weiner PA-C is PHCP. sb4 13:39 Stephany Blue MD is Attending Physician. sb4 13:44 Triage completed. iw 13:44 Arm band placed on. iw 13:47 Antione Gomez, RN is Primary Nurse. bp 13:50 Patient has correct armband on for positive identification. Provided Education on: N/A. bp Client placed on continuous cardiac and pulse oximetry monitoring. NIBP monitoring applied. hall monitor on. Pulse ox on. NIBP on. 13:53 Troponin HS Sent. bp 13:53 PT-INR Sent. bp 13:53 NT PRO-BNP Sent. bp 13:53 Magnesium Sent. bp 13:53 LFT's Sent. bp 13:53 CBC with Diff Sent. bp 13:53 Basic Metabolic Panel Sent. bp 13:53 Head Brain Wo Cont CT Sent. bp 13:53 XRAY Chest (1 view) Sent. bp 13:53 Initial lab(s) drawn, by me, sent to lab. Inserted saline lock: 22 gauge in left bc6 antecubital area, using aseptic technique. Blood collected. 14:08 XRAY Chest (1 view) In Process Unspecified. EDMS 14:13 Head Brain Wo Cont CT In Process Unspecified. EDMS 15:48 Troponin High Sensitivity Sent. bp 16:34 Esteban Pearson MD is Referral Physician. sb4 16:45 No provider procedures requiring assistance completed. nj1 16:45 IV discontinued, intact, bleeding controlled, Pressure dressing applied. nj1 Administered Medications: 14:20 Drug: Aspirin PO Chewable Tablet 324 mg PO once; 81 mg tablets x 4 Route: PO; bp Medication: 13:49 VIS not applicable for this client. bp Outcome: 16:34 Discharge ordered by MD. sb4 16:45 Patient left the ED. nj1 16:45 Discharged to home ambulatory, with family, nj1 16:45 Condition: stable 16:45 Discharge instructions given to patient, Instructed on discharge instructions, follow up and referral plans. Demonstrated understanding of instructions, follow-up care, Signatures: Dispatcher [employer] Yeny Mills, RN Antione Villafana RN RN Reema Thompson, PA-C PA-C sb4 Sirena De La Rosa bc Ally Velasquez RN RN [facility] Crissy Cruz mg5
--- NOTE | 2023-11-25 16:35 | EDPHYS ---
Physician Documentation [facility] Name: Sharyn Sanchez Age: 58 yrs Sex: Female : 1965 Arrival Date: 11/25/2023 Time: 13:32 Bed 15 Private MD: ED Physician Stephany Blue HPI: 11/24 13:47 This 58 yrs old Female presents to ER via Ambulatory with complaints of Chest Pain, sb4 Back Pain, Jaw Pain. 13:47 The patient or guardian reports chest pain that is located primarily in the substernal sb4 area. Onset: this morning. The pain radiates to neck, right jaw. Associated signs and symptoms: Pertinent positives: slurred speech. Duration: The patient or guardian reports multiple episodes, with no pattern. Modifying factors: The symptoms are alleviated by nothing. the symptoms are aggravated by nothing. Historical: - Allergies: 13:44 No Known Allergies; iw - PMHx: 13:44 Hypercholesterolemia; pre diabetic; iw 13:44 fatty liver; iw - Immunization history:: Adult Immunizations up to date. - Infectious Disease History:: Denies. - Social history:: Smoking status: Patient reports the use of cigarette tobacco products, unknown amount. ROS: 13:47 Constitutional: Negative for fever, chills, and weight loss, sb4 13:47 Cardiovascular: Positive for chest pain, 13:47 All other systems are negative, Exam: 13:48 Constitutional: This is a well developed, well nourished patient who is awake, alert, sb4 and in no acute distress. Head/Face: Normocephalic, atraumatic. Eyes: Extra-ocular motions intact. Periorbital areas with no swelling, redness, or edema. ENT: Mucous membranes moist. Cardiovascular: Regular rate and rhythm with a normal S1 and S2. Respiratory: Lungs have equal breath sounds bilaterally, clear to auscultation and percussion. No rales, rhonchi or wheezes noted. No increased work of breathing, no retractions or nasal flaring. Abdomen/GI: Soft, non-tender, no distension. Skin: Warm, dry with normal turgor. Normal color with no rashes, no lesions, and no evidence of cellulitis. MS/ Extremity: Pulses equal, no cyanosis. Neurovascular intact. Full, normal range of motion. Neuro: Awake and alert, GCS 15, oriented to person, place, time, and situation. Motor strength 5/5 in all extremities. Sensory grossly intact. Vital Signs: 14:20 BP 112 / 71; Pulse 83; Resp 16; Pulse Ox 97% ; bp 15:30 BP 98 / 66; Pulse 79; Resp 16; Pulse Ox 97% ; nj1 16:24 BP 97 / 61; Pulse 71; Resp 16; Pulse Ox 99% on R/A; Pain 0/10; nj1 16:24 Pain Scale: Adult nj1 MDM: 13:39 Patient medically screened. sb4 14:33 The patient was given aspirin in the Emergency Department. Scoring Tools HEART Score: sb4 History: ECG: Age: Risk Factors: > or = 3 Risk factors for atherosclerotic disease (2), Troponin: Total Score = 5. 14:48 Refusal of service: The patient/guardian displays adequate decision making capability sb4 and despite a detailed discussion of alternatives, benefits, risks, and consequences refuses: Admission to the hospital for further work-up and treatment. 14:48 ED course: I recommended admission to hospital for further cardiac workup but patient sb4 refuses. 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 States chest pain has resolved. Will repeat troponin in 2 hours then discharge home if negative. 16:34 Data reviewed: vital signs, nurses notes, lab test result(s), EKG, radiologic studies, sb4 and as a result, I will discharge patient. Counseling: I had a detailed discussion with the patient and/or guardian regarding the historical points, exam findings, and any diagnostic results supporting the discharge/admit diagnosis, lab results, radiology results, the need for outpatient follow up, a ruby on rails software developer, to return to the emergency department if symptoms worsen or persist or if there are any questions or concerns that arise at home, smoking cessation. 11/24 13:39 Order name: Basic Metabolic Panel; Complete Time: 14:32 sb4 11/24 13:39 Order name: CBC with Diff; Complete Time: 14:18 sb4 11/24 13:39 Order name: LFT's; Complete Time: 14:32 sb4 11/24 13:39 Order name: Magnesium; Complete Time: 14:32 sb4 11/24 13:39 Order name: NT PRO-BNP; Complete Time: 14:32 sb4 11/24 13:39 Order name: PT-INR; Complete Time: 14:18 sb4 11/24 13:39 Order name: Troponin HS; Complete Time: 14:32 sb4 11/24 15:43 Order name: Troponin High Sensitivity; Complete Time: 17:47 sb4 11/24 13:39 Order name: XRAY Chest (1 view); Complete Time: 14:18 sb4 11/24 13:46 Order name: Head Brain Wo Cont CT; Complete Time: 14:20 sb4 11/24 13:39 Order name: EKG; Complete Time: 13:40 sb4 11/24 13:39 Order name: Cardiac monitoring; Complete Time: 13:53 sb4 11/24 13:39 Order name: EKG - Nurse/Tech; Complete Time: 13:44 sb4 11/24 13:39 Order name: IV Saline Lock; Complete Time: 13:53 sb4 11/24 13:39 Order name: Labs collected and sent; Complete Time: 13:53 sb4 11/24 13:39 Order name: O2 Per Protocol; Complete Time: 13:47 sb4 11/24 13:39 Order name: O2 Sat Monitoring; Complete Time: 13:47 sb4 11/24 14:39 Order name: Misc. Order: repeat trop at 1600; Complete Time: 15:48 sb4 EC:44 Rate is 84 beats/min. Rhythm is regular, Normal Sinus Rhythm. AR interval is normal at sb4 156 msec. QRS interval is normal at 88 msec. QT interval is normal. No Q waves. T waves are Normal. Clinical impression: No evidence of ischemia. Interpreted by me. Reviewed by me. Administered Medications: 14:20 Drug: Aspirin PO Chewable Tablet 324 mg PO once; 81 mg tablets x 4 Route: PO; bp Disposition Summary: 11/25/23 16:34 Discharge Ordered Notes: Location: Home sb4 Problem: new sb4 Symptoms: have improved sb4 Condition: Stable sb4 Diagnosis - Chest pain, unspecified sb4 Followup: sb4 - With: Esteban Pearson MD - When: 2 - 3 days - Reason: Further diagnostic work-up, Recheck today's complaints, Re-evaluation by your physician Discharge Instructions: - Discharge Summary Sheet sb4 - Nonspecific Chest Pain, Adult, Uuhv-jz-Rysj sb4 Forms: - Antibiotic Education sb4 - Patient Portal Instructions sb4 - Leadership Thank You Letter sb4 Signatures: Dispatcher [employer] Yeny Mills, RN RN Antione Mondragon, RN RN Reema Thompson PA-C PAEdmundo sb4 Corrections: (The following items were deleted from the chart) 13:40 13:40 BASIC METABOLIC PANEL+C.LAB.BRZ ordered. EDMS EDMS 13:40 13:40 CBC+H.LAB.BRZ ordered. EDMS EDMS 13:40 13:40 HEPATIC FUNCTION+C.LAB.BRZ ordered. EDMS EDMS 13:40 13:40 MAGNESIUM+C.LAB.BRZ ordered. EDMS EDMS 13:40 13:40 PROBNP+C.LAB.BRZ ordered. EDMS EDMS 13:40 13:40 PROTIME (+INR)+COAG.LAB.BRZ ordered. EDMS EDMS 13:40 13:40 Troponin High Sensitivity+C.LAB.BRZ ordered. EDMS EDMS
[2023-11-25 17:19] VITALS: BP 97/61; O2SAT 99
--- NOTE | 2023-11-26 13:28 | EKG ---
Test Date: 2023-11-25 Test Time: 13:41:04 Sprayer Leather: TRISHA MEASUREMENT RESULTS: Intervals: Rate: 84 [place]: 156 QRSD: 88 QT: 328 QTc: 387 [place]: P: 52 [place]: 156 QRS: -19 T: -3 INTERPRETIVE STATEMENTS: Sinus rhythm Nonspecific T wave abnormality Abnormal ECG No previous ECG available for comparison Electronically Signed On 11-26-23 13:27:00 CDT by Esteban Pearson
== END 2023-11-25 16:45 | disposition home or self-care (01) ==
LOC: ER 13:32
DX: R07.9 Chest pain, unspecified (principal); R47.81 Slurred speech; Z72.0 Tobacco use
CPT/HCPCS: 36415; 70450; 71045; 80048; 80076; 83735; 83880; 84484; 85025; 85610; 93005; 99284

== ENCOUNTER 2024-11-08 09:05 | Emergency (ER) | payer OTHER ==
--- OUTSIDE RECORDS SUMMARY | 2024-11-08 09:12 | XMS REPORT | Continuity of Care Document ---
Author Name Unknown Address [address] [place] [address] [facility] Address [address] [place] [address] Care Team Providers Care Electrician Chief Name Role Phone Elysia RAMON, [facility] Primary Care Physician [phone] RODGER AYALA Attending Clinician Unavailable OMER VILLEGAS Attending Clinician Unavailable CRISTINO BARONE-WARREN Attending Clinician Unavailable BLESSING GATES Attending Clinician Unavailable CHSAE VERDUGO Attending Clinician Unavailable MARIA VICTORIA DIAZ Attending Clinician Unavailab RAMANDEEP Russ Attending Clinician Unavailable JACKY REILLY Attending Clinician Unavailable PL, TECH 1 Attending Clinician Unavailable FAUSTO SALCIDO Attending Clinician Unavailab le LAB90 Attending Clinician Unavailable PORTILLO HAWKINS Attending Clinician Unavaildamion JAIN MD Attending Clinician Unavailab MARGOT Ribeiro Attending Clinician Unavailable ANTONIO LANTIGUA Attending Clinician Unavailable COURT WATSON Attending Clinician Unavailabl ROLA Hull Attending Clinician Unava ilable LORENA CASTELLANOS Attending Clinician Unavailable CALEB STAUFFER Attending Clinician Unav LAWRENCE Garcia Attending Clinician Unavailable LAB47 Attending Clinician Unavailable NIDIA WHITFIELD Attending Clinician Unavailable KSENIA PEOPLES Attending Clinician Unava ilable MELVIN Attending Clinician Unavailable Payers Payer Name Policy Type Policy Number Effective Date Expirati on Date Source [facility] ADVANCED 9 [id number] 2024 00:00:00 Problems Condition Name Condition Details Condition Category Status Onset Date Resolution Date Last Treatment Date Treating Clinician Comments Source Moderate episode of recurrent major depressive disorder Moderate episode of recurrent major depressive disorder Disease Active 2023-07 00:00: 00 Sade [place] - Externa l Fatty liver Fatty liver Disease Active 2023-07 00:00: 00 Sade [place] - Externa l Atrophy of muscle of right lower leg Atrophy of muscle of right lower leg Disease Active 2023-07 00:00: 00 Sade Cleveland - Externa l Skin cancer screening Skin cancer screening Disease Active 09-10 00:00: 00 Sade Cleveland - Externa l Class 1 obesity due to excess calories without serious comorbidit y with body mass index (BMI) of 30.0 to 30.9 in adult Class 1 obesity due to excess calories without serious comorbidit y with body mass index (BMI) of 30.0 to 30.9 in adult Disease Active 09-10 00:00: 00 Sade Cleveland - Raula kristin Well adult exam Well adult exam Disease Active 08-14 00:00: 00 Sade Cleveland - Externa l Allergies, Adverse Reactions, Alerts Allergy Name Allergy Type Status Severity Reaction(s) Onset Date Inactive Date Treating Clinician Comments Source n Propensi ty to adverse reaction to drug Active 02-03 00:00: 00 Codeine Propensi ty to adverse reaction s Active 02-03 00:00: 00 Sade Cleveland - Externa l Social History Social Habit Start Date Stop Date Quantity Comments Source Sexual orientation Alepsh Cleveland - External ASSERTION Not Sade Cleveland - External History of tobacco use Cigarette Smoker Sade rascon - External Alcoholic beverage intake 2024-07-26 00:00:00 2024-07-26 00:00:00 Ex-drinker (finding) Sade Cleveland - External Cigarettes smoked current (pack per day) - Reported 2023-11-11 00:00:00 2023-11-11 00:00:00 Sade Kim External Cigarette pack-years 2023-11-11 00:00:00 2023-11-11 00:00:00 Sade Cleveland - External Alcohol intake 2023-09-10 00:00:00 2023-09-10 00:00:00 Ex-drinker (finding) Sade Cleveland - External History of Social function 2023-08-14 00:00:00 2023-08-14 00:00:00 Sade Cleveland - External Sex 2023-07-21 12:41:01 2023-07-21 12:41:01 Female (finding) Sade Cleveland - External Sex assigned at 1965 00:00:00 1965 00:00:00 Sade Cleveland - External Smoking Status Start Date Stop Date Source Smokes tobacco daily 2023-11-11 00:00:00 Sade Kim External Medications Ordered Medication Name Filled Medication Name Start Date Stop Date Current Medication? Ordering Clinician Indication Dosage Frequency Signature (SIG) Comments Components Source Silver sulfADIAZIN E (SSD) 1 % apply externally Cream 08-10 00:00: 00 Yes [id number] 1{packa ge} Q.5D Apply 1 package topically 2 times daily Apply. Sade foster Albuterol HFA 108 (90 Base) MCG/ACT IN AERS 2023-07 00:00: 00 Yes [id number] 2{puff} Q.25D Inhale 2 puffs into the lungs every 6 hours as needed for wheezing. Sade foster Benzonatate (Tessalon Perles) 100 MG oral Capsule 2023-07 00:00: 00 Yes [id number] 100mg Q.59411469 [id number] 3D Take 1 capsule (100 mg total) by mouth 3 times daily as needed for cough. Sade foster Promethazin e HCl 12.5 MG oral Tablet 2023-07 1 00:00: 00 Yes [id number] 12.5mg Q.25D Take 1 tablet (12.5 mg total) by mouth every 6 hours as needed for nausea. Sade foster Nicotine 21 MG/24HR transdermal PATCH 24 HR 9-23 00:00: 00 07-14 00:00 :00 No [id number] 1{patch } Place 1 patch onto the skin every 24 hours. Sade foster hydrOXYzine HCl 25 MG oral Tablet 9-20 00:00: 00 Yes [id number] 25mg Q.87155566 [id number] 3D Take 1 tablet (25 mg total) by mouth 3 times daily as needed for anxiety. Sade foster Fluoxetine HCl 20 MG oral Capsule -20 00:00: 00 07-14 00:00 :00 No [id number] 20mg QD Take 1 capsule (20 mg total) by mouth daily. Sade foster Dicyclomine HCl 10 MG oral Capsule 9-09 00:00: 00 Yes [id number] 10mg TAKE 1 CAPSULE (10 MG TOTAL) BY MOUTH 4 TIMES DAILY (BEFORE MEALS AND NIGHTLY). Sade foster Promethazin e HCl 12.5 MG oral Tablet -06 00:00: 00 Yes [id number] 12.5mg Q.25D TAKE 1 TABLET BY MOUTH EVERY 6 HOURS NEEDED FOR NAUSEA. Sade foster Atorvastati n Calcium 20 MG oral Tablet 804 00:00: 00 Yes [id number] 20mg QD Take 1 tablet (20 mg total) by mouth nightly. Sade foster methylPREDN ISolone 4 MG oral Tablet Therapy Pack 01-12 00:00: 00 Yes [id number] 9108 1{angela} Take 1 angela by mouth See Admin Instructio ns Use as directed. Sade foster Cyclobenzap rine HCl 5 MG oral Tablet 01-12 00:00: 00 07-14 00:00 :00 No [id number] 9108 5mg Q.90246484 [id number] 3D Take 1 tablet (5 mg total) by mouth 3 times daily as needed for muscle spasms. Sade foster Phentermine HCl 37.5 MG oral Tablet 19 00:00: 00 01-12 00:00 :00 No [id number] 37.5mg Take 1 tablet (37.5 mg total) by mouth every morning (before breakfast) . Sade fosetr Dicyclomine HCl 10 MG oral Capsule 17 00:00: 00 Yes [id number] 10mg Take 1 capsule (10 mg total) by mouth 4 times daily (before meals and nightly). Sade foster Promethazin e HCl 12.5 MG oral Tablet 17 00:00: 00 Yes [id number] 12.5mg Q.25D Take 1 tablet (12.5 mg total) by mouth every 6 hours as needed for nausea. Sade foster Omeprazole 40 MG oral Delayed Release Capsule 11-10 00:00: 00 Yes [id number] 40mg QD Take 1 capsule (40 mg total) by mouth daily. Sade foster Sod Picosulfate -Mag Ox-Cit Acd (Clenpiq) 10-3.5-12 MG-GM -GM/175ML oral Solution 11-10 00:00: 00 Yes [id number] Instructio ns provided to patient. Follow instructio ns provided by provider.. Sade foster Polyethylen e Glycol 3350 17 g oral Pack 17 00:00: 00 Yes [id number] 17g Q.5D Take 17 g by mouth 2 times daily. Sade foster Phentermine HCl 37.5 MG oral Tablet -19 00:00: 00 Yes [id number] 37.5mg Take 1 tablet (37.5 mg total) by mouth every morning (before breakfast) . Sade foster Dicyclomine HCl 10 MG oral Capsule 3-13 00:00: 00 11-10 00:00 :00 No [id number] 10mg Take 1 capsule (10 mg total) by mouth 4 times daily (before meals and nightly). Sade foster hydrOXYzine HCl 25 MG oral Tablet 3-12 00:00: 00 20 00:00 :00 No [id number] Take 1/2-1 tablet po three times a day or QHS PRN for anxiety. Sade foster Ondansetron HCl 4 MG oral Tablet 09-14 00:00: 00 Yes [id number] 4mg Q.[id number] 3D Take 1 tablet (4 mg total) by mouth every 8 hours as needed for nausea. Sade foster Sumatriptan Succinate 100 MG oral Tablet 09-14 00:00: 00 01-12 00:00 :00 No [id number] Take one tablet by mouth x 1 as needed for migraine; If headache is unresolved in 2 hours, take one more tablet by mouth. DO NOT EXCEED 200 MG IN A 24 HOUR PERIOD. Dispense 1 pack. Sade foster Dicyclomine HCl 10 MG oral Capsule 09-10 00:00: 00 Yes [id number] 10mg Take 1 capsule (10 mg total) by mouth 4 times daily (before meals and nightly). Sade foster Phentermine HCl 37.5 MG oral Tablet 09-10 00:00: 00 Yes [id number] 37.5mg Take 1 tablet (37.5 mg total) by mouth every morning (before breakfast) . Sade foster Nicotine 21 MG/24HR transdermal PATCH 24 HR 09-10 00:00: 00 Yes [id number] 1{patch } Place 1 patch onto the skin every 24 hours. Sade foster Atorvastati n Calcium 20 MG oral Tablet 08-17 00:00: 00 Yes [id number] 20mg Take 1 tablet (20 mg total) by mouth daily. Sade foster Luckey-3 Fatty Acids (Luckey-3 Fish Oil) 1000 MG oral Capsule 08-17 00:00: 00 Yes [id number] 1{capsu le} Q.5D Take 1 capsule by mouth 2 times daily. Sade foster Dicyclomine HCl 10 MG oral Capsule 08-14 00:00: 00 Yes [id number] 10mg Take 1 capsule (10 mg total) by mouth 4 times daily (before meals and nightly). Sade foster Varenicline Tartrate, Starter, (Chantix Starting Month ) 0.5 MG X 11 & 1 MG X 42 oral Tablet Therapy Pack 08-14 00:00: 00 11-10 00:00 :00 No [id number] Take 0.5mg tablet by mouth daily for 3 days, then increase to 0.5mg tablet twice daily for 3 days, then increase to 1mg tablet twice daily.. Sade Cartera kristin Acetaminoph en-Codeine 300-30 MG oral Tablet 07-30 00:00: 00 11-10 00:00 :00 No [id number] 1{tbl} Q.03084587 [id number] 3D Take 1-2 tablets by mouth every 8 hours as needed for pain. Sade Megha foster TAKE 1 TABLET TWICE DAILY. 02-24 00:00: 00 No 100 TAKE 1 TABLET TWICE DAILY. 02-24 00:00: 00 No 100 TAKE 1 TABLET TWICE DAILY. 02-24 00:00: 00 No 100 Ozempic 0.25 mg or 0.5 mg (2 mg/1.5 mL) subcutane s pen injector 01-16 00:00: 00 No 5mg(2 mg/1.5 mL) Ozempic 0.25 mg or 0.5 mg (2 mg/1.5 mL) subcutane s pen injector 01-16 00:00: 00 No 5mg(2 mg/1.5 mL) Ozempic 0.25 mg or 0.5 mg (2 mg/1.5 mL) subcutane s pen injector 01-16 00:00: 00 No 5mg(2 mg/1.5 mL) ondansetron HCl 4 mg tablet 12-21 00:00: 00 No 1mg ondansetron HCl 4 mg tablet 12-21 00:00: 00 No 1mg ondansetron HCl 4 mg tablet 12-21 00:00: 00 No 1mg Wellbutrin SR 100 mg tablet, 12 hr sustained-r elease -05 00:00: 00 No 1mg Wellbutrin SR 100 mg tablet, 12 hr sustained-r elease 2022-0 5-05 00:00: 00 No 1mg Wellbutrin SR 100 mg tablet, 12 hr sustained-r elease 2-0 5- 00:00: 00 No 1mg sulfamethox azole 800 mg-trimetho prim 160 mg tablet 2021-0 11-21 00:00: 00 No 1mg Dose Unknown 2021-0 11-21 00:00: 00 No sulfamethox azole 800 mg-trimetho prim 160 mg tablet 2021-0 11-21 00:00: 00 No 1mg Dose Unknown 0 11-21 00:00: 00 No sulfamethox azole 800 mg-trimetho prim 160 mg tablet 0 11-21 00:00: 00 No 1mg Dose Unknown 0 11-21 00:00: 00 No Dose Unknown 0 11-15 00:00: 00 No Dose Unknown 0 11-15 00:00: 00 No Dose Unknown 0 4 00:00: 00 No Dose Unknown 2021-0 419 00:00: 00 No Dose Unknown 0 419 00:00: 00 No Dose Unknown 0 419 00:00: 00 No Dose Unknown 2021-0 4-14 00:00: 00 No Dose Unknown 0 4-14 00:00: 00 No Dose Unknown 0 4-14 00:00: 00 No atorvastati n 10 mg [...] 00:00: 00 No 1mg Dose Unknown 2021-0 4- 00:00: 00 No Dose Unknown 2021-0 4- 00:00: 00 No Dose Unknown 2021-0 4- 00:00: 00 No ondansetron HCl 4 mg tablet 2-0 4-11 00:00: 00 No 1mg Dose Unknown 0 4-11 00:00: 00 No Dose Unknown 0 4-11 00:00: 00 No mupirocin 2 % topical ointment 2020-07 0-25 00:00: 00 No 1% Bactrim DS 800 mg-160 mg tablet 2020-07 0-25 00:00: 00 No 1mg mupirocin 2 % topical ointment 2020-07 0-25 00:00: 00 No 1% Bactrim DS 800 mg-160 mg tablet 2020-07 0 00:00: 00 No 1mg Dose Unknown 2020-07 0 00:00: 00 No Bactrim DS 800 mg-160 mg tablet 2020-07 0 00:00: 00 No 1mg Flonase Allergy Relief 50 mcg/actuati on nasal spray,suspe nsion 0 04-22 00:00: 00 No 12mcg/a ctuatio n Bromfed DM 2 mg-30 mg-10 mg/5 mL oral syrup 0 04-22 00:00: 00 No 10mg/5 mL Flonase Allergy Relief 50 mcg/actuati on nasal spray,suspe nsion 0 04-22 00:00: 00 No 12mcg/a ctuatio n Bromfed DM 2 mg-30 mg-10 mg/5 mL oral syrup 0 04-22 00:00: 00 No 10mg/5 mL Flonase Allergy Relief 50 mcg/actuati on nasal spray,suspe nsion 0 04-22 00:00: 00 No 12mcg/a ctuatio n Bromfed DM 2 mg-30 mg-10 mg/5 mL oral syrup 0 04-22 00:00: 00 No 10mg/5 mL Augmentin 875 mg-125 mg tablet 0 04-10 00:00: 00 No 1mg Bromfed DM 2 mg-30 mg-10 mg/5 mL oral syrup 2020-0 04-10 00:00: 00 No 10mg/5 mL Augmentin 875 mg-125 mg tablet 2020-0 04-10 00:00: 00 No 1mg Bromfed DM 2 mg-30 mg-10 mg/5 mL oral syrup 04-10 00:00: 00 No 10mg/5 mL Augmentin 875 mg-125 mg tablet 04-10 00:00: 00 No 1mg Bromfed DM 2 mg-30 mg-10 mg/5 mL oral syrup 04-10 00:00: 00 No 10mg/5 mL Flagyl [...] mg tablet 2019-07 00:00: 00 No 2mg Immunizations Ordered Immunization Name Filled Immunization Name Date Status Comments Source SHINGRIX VACCINE 2021-11-04 00:00:00 Completed influenza, high-dose, quadrivalent 2021-11-04 00:00:00 Completed SHINGRIX VACCINE 2021-11-04 00:00:00 Completed influenza, high-dose, quadrivalent 2021-11-04 00:00:00 Completed SHINGRIX VACCINE 2021-11-04 00:00:00 Completed influenza, high-dose, quadrivalent 2021-11-04 00:00:00 Completed Influenza Virus Vaccine, Quadrivalent, High Dose, Age 65 And Up Unknown Completed Sade S eybold - External Shingles IM (Shingrix) Unknown Completed Sade Cleveland - External Influenza Virus Vaccine, Quadrivalent, High Dose, Age 65 And Up Unknown Completed Sade S eybold - External Shingles IM (Shingrix) Unknown Completed Sade Cleveland - External Influenza Virus Vaccine, Quadrivalent, High Dose, Age 65 And Up Unknown Completed Sade S eybold - External Shingles IM (Shingrix) Unknown Completed Sade Cleveland - External Influenza Virus Vaccine, Quadrivalent, High Dose, Age 65 And Up Unknown Completed Sade S eybold - External Shingles IM (Shingrix) Unknown Completed Sade Seybold - External AFLURIA TRIVALENT MDV Unknown Completed Sade Dugganold - External Influenza Virus Vaccine, Quadrivalent, High Dose, Age 65 And Up Unknown Completed Sade Ricardo eybold - External Shingles IM (Shingrix) Unknown Completed Sade Anguloybold - External AFLURIA TRIVALENT MDV Unknown Completed Sade Dugganold - External Influenza Virus Vaccine, Quadrivalent, High Dose, Age 65 And Up Unknown Completed Sade Ricardo eybold - External Shingles IM (Shingrix) Unknown Completed Sade Anguloybold - External AFLURIA TRIVALENT MDV Unknown Completed Sade Dugganold - External Influenza Virus Vaccine, Quadrivalent, High Dose, Age 65 And Up Unknown Completed Sade Ricardo eybold - External Shingles IM (Shingrix) Unknown Completed Sade Anguloybold - External AFLURIA TRIVALENT MDV Unknown Completed Sade Dugganold - External Influenza Virus Vaccine, Quadrivalent, High Dose, Age 65 And Up Unknown Completed Sade Ricardo eybold - External Shingles IM (Shingrix) Unknown Completed Sdae Anguloybold - External AFLURIA TRIVALENT MDV Unknown Completed Sade Anguloybold - External Vital Signs Vital Name Observation Time Observation Value Comments S ource Systolic blood pressure 2024-07-26 16:25:00 112 mm[Hg] Sade Duggano ld - External Diastolic blood pressure 2024-07-26 16:25:00 62 mm[Hg] Sade Duggano ld - External Heart rate 2024-07-26 16:25:00 90 /min Alonsose ronaldo Cleveland - External Body temperature 2024-07-26 16:25:00 36.11 Gely Sade Anguloybold - External Respiratory rate 2024-07-26 16:25:00 18 /min Sade Dugganold - External Body height 2024-07-26 16:25:00 162.6 cm Sarah gilbert Seybold - External Body weight 2024-07-26 16:25:00 82.736 kg Sarah gilbert Seybold - External BMI 2024-07-26 16:25:00 31.31 kg/m2 Sarah gilbert Seybold - External Systolic blood pressure 2024-07-14 16:31:00 133 mm[Hg] Sade Duggano ld - External Diastolic blood pressure 2024-07-14 16:31:00 88 mm[Hg] Sade Seybo ld - External Heart rate 2024-07-14 16:31:00 98 /min Kelse y Seybold - External Body temperature 2024-07-14 16:31:00 36.11 Gely Sade Seybold - External Respiratory rate 2024-07-14 16:31:00 16 /min Sade Seybold - External Body height 2024-07-14 16:31:00 162.6 cm Sarah ey Seybold - External Body weight 2024-07-14 16:31:00 83.915 kg Sarah ey Seybold - External BMI 2024-07-14 16:31:00 31.76 kg/m2 Sarah ey Seybold - External Oxygen saturation in Arterial blood by Pulse oximetry 2024-07-14 16:31:00 100 /min Sade Seybo ld - External Systolic blood pressure 2024-01-13 17:46:00 100 mm[Hg] Sade Seybo ld - External Diastolic blood pressure 2024-01-13 17:46:00 60 mm[Hg] Sade Seybo ld - External Heart rate 2024-01-13 17:46:00 82 /min Kelse y Seybold - External Body temperature 2024-01-13 17:46:00 35.89 Gely Sade Seybold - External Respiratory rate 2024-01-13 17:46:00 16 /min Sade Seybold - External Body height 2024-01-13 17:46:00 162.6 cm Sarah ey Seybold - External Body weight 2024-01-13 17:46:00 83.008 kg Sarah ey Seybold - External BMI 2024-01-13 17:46:00 31.41 kg/m2 Sarah ey Seybold - External Systolic blood pressure 2023-11-11 18:50:00 109 mm[Hg] [...] - External BMI 2023-11-11 18:50:00 29.87 kg/m2 Sarah ey Seybold - External Systolic blood pressure [...] Pulse oximetry 2023-09-10 16:47:00 98 /min Sade Seybo ld - External Systolic blood pressure 2023-08-14 [...] External BMI 2023-08-14 17:13:00 30.38 kg/m2 Sarah gilbert Seybold - External Oxygen saturation in Arterial blood by Pulse oximetry 2023-08-14 17:13:00 98 /min Sade Duggano ld - External Systolic blood pressure 2023-07-30 16:52:00 118 mm[Hg] Sade Duggano ld - External Diastolic blood pressure 2023-07-30 16:52:00 78 mm[Hg] Sade Duggano ld - External Heart rate 2023-07-30 16:52:00 80 /min Ja y Seybold - External Body temperature 2023-07-30 16:52:00 36.61 Gely Sade Anguloybold - External Respiratory rate 2023-07-30 16:52:00 16 /min Sade Anguloybold - External Body height 2023-07-30 16:52:00 162.6 cm Sarah gilbert Seybold - External Body weight 2023-07-30 16:52:00 80.457 kg Sarah gilbert Seybold - External BMI 2023-07-30 16:52:00 30.45 kg/m2 Sarah gilbert Seybold - External Oxygen saturation in Arterial blood by Pulse oximetry 2023-07-30 16:52:00 97 /min Sade Duggano ld - External BP Systolic 2022-05-14 14:28:00 [...] Goal Plan of Care Note [code = 50407-6] Goal Plan of Care Note [code = 97983-3] Goal Plan of Care Note [code = 57682-4] Goal Plan of Care Note [code = 88266-8] Goal Plan of Care Note [code = 47136-3] Goal Plan of Care Note [code = 21887-2] Goal Plan of Care Note [code = 76883-2] Goal Plan of Care Note [code = 70418-8] Goal Plan of Care Note [code = 69459-2] Goal Plan of Care Note [code = 34452-4] Goal Plan of Care Note [code = 95608-9] Goal Plan of Care Note [code = 53419-8] Goal Plan of Care Note [code = 97816-5] Goal Plan of Care Note [code = 14638-9] Goal Plan of Care Note [code = 25012-1] Goal Plan of Care Note [code = 23513-1] Goal Plan of Care Note [code = 68562-7] Goal Plan of Care Note [code = 11729-0] Goal Plan of Care Note [code = 70570-8] Goal Plan of Care Note [code = 37034-0] Goal Plan of Care Note [code = 08997-0] Goal Plan of Care Note [code = 94974-5] Goal Plan of Care Note [code = 98810-3] Goal Plan of Care Note [code = 01816-4] Goal Plan of Care Note [code = 94654-1] Goal Plan of Care Note [code = 25785-6] Goal Plan of Care Note [code = 27595-3] Goal Plan of Care Note [code = 36599-7] Goal Plan of Care Note [code = 28407-1] Goal Plan of Care Note [code = 99687-3] Goal Plan of Care Note [code = 99767-9] Goal Plan of Care Note [code = 46177-5] Goal Plan of Care Note [code = 50005-1] Goal Plan of Care Note [code = 69270-7] Goal Plan of Care Note [code = 94435-0] Goal Plan of Care Note [code = 86015-9] Goal Plan of Care Note [code = 45886-1] Goal Plan of Care Note [code = 28865-3] Goal Plan of Care Note [code = 18021-8] Goal Plan of Care Note [code = 97748-1] Goal Plan of Care Note [code = 83688-5] Goal Plan of Care Note [code = 87406-2] Goal Plan of Care Note [code = 49268-0] Goal Plan of Care Note [code = 74497-4] Goal Plan of Care Note [code = 16990-0] Goal Plan of Care Note [code = 99498-1] Goal Plan of Care Note [code = 93580-7] Goal Plan of Care Note [code = 90861-5] Goal Plan of Care Note [code = 44879-6] Goal Plan of Care Note [code = 05555-0] Goal Plan of Care Note [code = 14210-6] Goal Plan of Care Note [code = 15536-8] Goal Plan of Care Note [code = 06781-2] Goal Plan of Care Note [code = 38452-1] Goal Plan of Care Note [code = 40899-6] Goal Plan of Care Note [code = 21110-7] Goal Plan of Care Note [code = 46998-6] Goal Plan of Care Note [code = 47787-0] Goal Plan of Care Note [code = 82251-4] Goal Plan of Care Note [code = 99646-5] Goal Plan of Care Note [code = 13325-8] Goal Plan of Care Note [code = 39405-7] Goal Plan of Care Note [code = 99402-0] Goal Plan of Care Note [code = 55524-3] Goal Plan of Care Note [code = 19350-4] Goal Plan of Care Note [code = 59511-2] Goal Plan of Care Note [code = 82169-6] Goal Plan of Care Note [code = 04322-4] Goal Plan of Care Note [code = 48339-8] Goal Plan of Care Note [code = 14886-3] Goal Plan of Care Note [code = 16236-3] Goal Plan of Care Note [code = 53571-5] Goal Plan of Care Note [code = 57379-8] Goal Plan of Care Note [code = 82581-8] Goal Plan of Care Note [code = 00652-9] Goal Plan of Care Note [code = 31343-1] Goal Plan of Care Note [code = 79528-0] Goal Plan of Care Note [code = 46288-1] Goal Plan of Care Note [code = 63230-0] Goal Plan of Care Note [code = 48596-1] Goal Plan of Care Note [code = 51884-0] Goal Plan of Care Note [code = 63327-6] Goal Plan of Care Note [code = 49740-5] Goal Plan of Care Note [code = 57991-6] Goal Plan of Care Note [code = 43263-6] Goal Plan of Care Note [code = 72117-0] Goal Plan of Care Note [code = 26054-7] Goal Plan of Care Note [code = 83702-9] Goal Plan of Care Note [code = 95965-6] Goal Plan of Care Note [code = 71595-4] Goal Plan of Care Note [code = 73295-2] Goal Plan of Care Note [code = 50113-2] Goal Plan of Care Note [code = 96863-0] Goal Plan of Care Note [code = 88033-8] Encounters Start Date/Time End Date/Time Encounter Type Admission Type Attending [facility] Care Facility Care Department Encounter ID Source 2024-12-08 13:45:00 2024-12-08 13:45:00 Outpatient R[place]GER [place]YALA [place] [id number] Sade Seybold 2024-11-24 09:30:00 2024-11-24 09:30:00 Outpatient RODGER AYALA [place] [id number] Sade Seybold 2024-10-29 00:00:00 2024-10-29 00:00:00 Outpatient NELLY OMER [place] [id number] Sade Seybold 2024-10-29 00:00:00 2024-10-29 00:00:00 Outpatient NELLY OMER [place] [id number] Sade Seybold 2024-10-29 00:00:00 2024-10-29 00:00:00 Outpatient GERRY BARONE [place] [id number] Sade Seybold 2024-10-29 00:00:00 2024-10-29 00:00:00 Outpatient [facility] [id number] Sade Seybold 2024-10-12 00:00:00 2024-10-12 00:00:00 Outpatient CHASE VERDUGO [id number] Sade Seybold 2024-09-14 10:00:00 2024-09-14 10:00:00 Outpatient MARIA VICTORIA DIAZ [id number] Sade Seybold 2024-09-14 00:00:00 2024-09-14 00:00:00 Outpatient CHASE VERDUGO [id number] Sade Seybold 2024-08-17 00:00:00 2024-08-17 00:00:00 Outpatient [facility] [id number] Sade Seybold 2024-08-10 12:15:00 2024-08-10 12:15:00 Outpatient RAMANDEEP CAZARES [id number] Sade Seybold 2024-08-10 00:00:00 2024-08-10 00:00:00 Outpatient MARIA VICTORIA DIAZ [id number] Sade Seybold 2024-07-27 00:00:00 2024-07-27 00:00:00 Outpatient JACKY REILLY [place] [id number] [facility] 2024-07-26 10:30:00 2024-07-26 10:30:00 Out[place] [facility] [place] [id number] [facility] 2024-07-14 10:30:00 2024-07-14 10:30:00 Outpatient MARIA VICTORIA DIAZ [place] [id number] [facility] 2024-07-05 11:00:00 2024-07-05 11:00:00 Outpatient ROBERTO ALEXANDRIA [place] [id number] [facility] 2024-06-22 00:00:00 2024-06-22 00:00:00 Outpatient FAUSTO SALCIDO [id number] [facility] 2024-06-22 00:00:00 2024-06-22 00:00:00 Outpatient [place] [id number] [facility] 2024-06-01 09:35:00 2024-06-01 09:35:00 Outpatient LAB90 [place] [id number] [facility] 2024-05-31 09:10:00 2024-05-31 09:10:00 Outpatient LAB90 [place] [id number] [facility] 2024-05-30 11:00:00 2024-05-30 11:00:00 Outpatient FAUSTO SALCIDO [id number] [facility] [facility] 2024-05-29 00:00:00 2024-05-29 00:00:00 Outpatient OMER VILLEGAS [id number] [facility] 2024-04-20 10:30:00 2024-04-20 10:30:00 Outpatient PORTILLO HAWKINS [id number] [facility] 2024-04-19 00:00:00 2024-04-19 00:00:00 Outpatient MD SADE BUNDY [id number] [facility] 2024-04-18 00:00:00 2024-04-18 00:00:00 Outpatient MD SADE BUNDY [id number] [facility] 2024-04-18 00:00:00 2024-04-18 00:00:00 Outpatient MD SADE BUNDY [id number] [facility] 2024-04-15 16:30:00 2024-04-15 16:30:00 Outpatient GERRY BARONE [place] [id number] [facility] 2024-04-15 16:15:00 2024-04-15 16:15:00 Outpatient MARGOT GOODWIN [id number] [facility] 2024-04-15 00:00:00 2024-04-15 00:00:00 Outpatient ANTONIO LANTIGUA [id number] [facility] 2024-04-15 00:00:00 2024-04-15 00:00:00 Outpatient MARIA VICTORIA DIAZ [id number] [facility] 2024-04-02 00:00:00 2024-04-02 00:00:00 Outpatient ANTONIO LANTIGUA [id number] [facility] 2024-03-31 12:00:00 2024-03-31 12:00:[address]ATSON [id number] [facility] 2024-02-26 00:00:00 2024-02-26 00:00:00 Outpatient MARIA VICTORIA DIAZ [id number] [facility] 2024-02-26 00:00:00 2024-02-26 00:00:00 Outpatient ANTONIO LANTIGUA [id number] [facility] 2024-01-14 15:00:00 2024-01-14 15:00:00 Outpatient ROLA CALVILLO [id number] [facility] 2024-01-13 13:00:00 2024-01-13 13:00:00 Outpatient LORENA CASTELLANOS [id number] [facility] 2024-01-13 00:00:00 2024-01-13 00:00:00 Outpatient [place]TONIO LANTIGUA [place] [id number] [facility] 2024-01-11 00:00:00 2024-01-11 00:00:00 Outpatient ANTONIO LANTIGUA [place] [id number] [facility] 2024-01-05 00:00:00 2024-01-05 00:00:00 Outpatient ANTONIO LANTIGUA [place] [id number] [facility] 2024-01-01 11:00:00 2024-01-01 11:00:00 Outpatient [place] [id number] [facility] 2023-12-24 08:55:00 2023-12-24 08:55:00 Outpatient CALEB STAUFFER [id number] [facility] 2023-12-18 09:30:00 2023-12-18 09:30:00 Outpatient FAUSTO SALCIDO [id number] [facility] 2023-12-08 16:00:00 2023-12-08 16:00:00 Outpatient MARIA VICTORIA DIAZ [id number] [facility] 2023-11-30 11:00:00 2023-11-30 11:00:00 Outpatient LAWRENCE HASTINGS [id number] [facility] 2023-11-26 09:15:00 2023-11-26 09:15:00 Outpatient RODGER AYALA [id number] [facility] 2023-11-18 00:00:00 2023-11-18 00:00:00 Outpatient MD SADE BUNDY [id number] [facility] 2023-11-17 08:00:00 2023-11-17 08:00:00 Outpatient ROLA CALVILLO [id number] [facility] 2023-11-17 00:00:00 2023-11-17 00:00:00 Outpatient KENNETH ANTONIO [place] [id number] [facility] 2023-11-13 00:00:00 2023-11-13 00:00:00 Outpatient CHASE VERDUGOSEY [id number] [facility] 2023-11-12 13:30:00 2023-11-12 13:30:00 Outpatient MARIA VICTORIA DIAZ [place] [id number] [facility] 2023-11-12 00:00:00 2023-11-12 00:00:00 Outpatient GERRY BARONE [place] [id number] [facility] 2023-11-11 14:45:00 2023-11-11 14:45:00 Outpatient [facility] [place] [id number] [facility] 2023-11-11 14:15:00 2023-11-11 14:15:00 Outpatient ANTONIO LANTIGUA [place] [id number] [facility] 2023-11-09 11:00:00 2023-11-09 11:00:00 Outpatient MARIA VICTORIA DIAZ [place] [id number] [facility] 2023-11-05 00:00:00 2023-11-05 00:00:00 Outpatient MARIA VICTORIA DIAZ [place] [id number] [facility] 2023-10-23 11:00:00 2023-10-23 11:00:00 Outpatient [place] [id number] [facility] 2023-10-23 10:30:00 2023-10-23 10:30:00 Outpatient [place] [id number] [facility] 2023-10-23 10:00:00 2023-10-23 10:00:00 Outpatient [place] [id number] [facility] 2023-10-23 08:15:00 2023-10-23 08:15:00 Outpatient [place] [id number] [facility] 2023-10-23 08:15:00 2023-10-23 08:15:00 Outpatient [place] [id number] [facility] 2023-10-23 07:40:00 2023-10-23 07:40:00 Outpatient [place] [id number] [facility] 2023-10-13 09:15:00 2023-10-13 09:15:00 Outpatient PRECHASE CEE [place] [id number] [facility] 2023-10-11 00:00:00 2023-10-11 00:00:00 Outpatient GERRY BARONE [place] [id number] [facility] 2023-10-10 00:00:00 2023-10-10 00:00:00 Outpatient PREZAS, CHASE [place] [id number] [facility] 2023-10-06 13:30:00 2023-10-06 13:30:00 Outpatient NIDIA WHITFIELD [id number] [facility] 2023-10-02 00:00:00 2023-10-02 00:00:00 Outpatient MARIA VICTORIA DIAZ [id number] [facility] 2023-09-28 15:15:00 2023-09-28 15:15:00 Outpatient LAWRENCE HASTINGS [id number] [facility] 2023-09-28 00:00:00 2023-09-28 00:00:00 Outpatient KSENIA PEOPLES [id number] [facility] 2023-09-17 13:15:00 2023-09-17 13:15:00 Outpatient [place] [id number] [facility] 2023-09-14 13:30:00 2023-09-14 13:30:00 Outpatient GERRY BARONE [place] [id number] [facility] 2023-09-10 11:00:00 2023-09-10 11:00:00 Outpatient MARIA VICTORIA DIAZ [id number] [facility] 2023-09-10 00:00:00 2023-09-10 00:00:00 Outpatient PREZADavion CHASE [place] [id number] [facility] 2023-09-10 00:00:00 2023-09-10 00:00:00 Outpatient PREZASCHASE [id number] [facility] 2023-09-07 00:00:00 2023-09-07 00:00:00 Outpatient MARIA VICTORIA DIAZ [id number] [facility] 2023-08-31 00:00:00 2023-08-31 00:00:00 Outpatient KSNEIA PEOPLES [place] [id number] [facility] 2023-08-28 00:00:00 2023-08-28 00:00:00 Outpatient MARIA VICTORIA DIAZ [place] [id number] [facility] 2023-08-21 00:00:00 2023-08-21 00:00:00 Outpatient MD SADE BUNDY [id number] [facility] 2023-08-18 00:00:00 2023-08-18 00:00:00 Outpatient MARIA VICTORIA DIAZ [place] [id number] [facility] 2023-08-18 00:00:00 2023-08-18 00:00:00 Outpatient MARIAV ICTORIA DIAZ [place] [id number] [facility] 2023-08-17 00:00:00 2023-08-17 00:00:00 Outpatient MARIA VICTORIA DIAZ [place] [id number] [facility] 2023-08-17 00:00:00 2023-08-17 00:00:00 Outpatient CHASE VERDUGO [id number] [facility] 2023-08-17 00:00:00 2023-08-17 00:00:00 Outpatient MARIA VICTORIA DIAZ [place] [id number] [facility] 2023-08-14 13:00:00 2023-08-14 13:00:00 Outpatient MUNAKatherine [place] [id number] [facility] 2023-08-14 11:30:00 2023-08-14 11:30:00 Outpatient MARIA VICTORIA DIAZ [place] [id number] [facility] 2023-08-06 09:00:00 2023-08-06 09:00:00 Outpatient JOE MARIA VICTORIA [place] [id number] [facility] 2023-07-31 00:00:00 2023-07-31 00:00:00 Outpatient MELVIN [place] [id number] [facility] [place] 2023-07-31 00:00:00 2023-07-31 00:00:00 Outpatient GINUR [place] [id number] [facility] [place] 2023-07-30 11:45:00 2023-07-30 11:45:00 Outpatient ESTELITA [place] [id number] [facility] [place] 2023-07-30 11:00:00 2023-07-30 11:00:00 Outpatient KSENIA PEOPLES [id number] [facility] [place] 2023-06-04 11:09:52 2023-06-04 11:09:52 Outpatient SFA SFA 1109 Leonel Hernandez 2023-05-23 11:11:03 2023-05-23 11:11:03 Outpatient SFA SFA [id number] Leonel Hernandez 2023-04-16 15:42:40 2023-04-16 15:42:40 Outpatient SFA SFA [id number] Leonel Hernandez 2023-02-11 10:48:41 2023-02-11 10:48:41 Outpatient SFA SFA [id number] Leonel Hernandez 2023-02-09 11:07:42 2023-02-09 11:07:42 Outpatient SFA SFA [id number] Leonel Hernandez 2022-05-24 10:08:02 2022-05-24 10:08:02 Outpatient SFA SFA [id number] Leonel Hernandez 2022-05-14 14:21:53 2022-05-14 14:21:53 Outpatient SFA SFA 1019 Leonel Hernandez 2022-05-14 00:00:00 2022-05-14 00:00:00 Outpatient Visit [id number] 2022-03-11 00:00:00 2022-03-11 00:00:00 Outpatient Visit [id number] 2022-03-07 00:00:00 2022-03-07 00:00:00 Outpatient Visit [id number] [facility]-[id number] 04543k Results Test Description Test Time Test Comments Results Result Co mments Source CBC W/AUTO DIFF WITH [id number] 02:37:09* Test Item Value Reference Range Interpretation [...] = 1065) 0.0 /100 WBC'S See_Comment [Automated [employer] ge] The system which generated this result [...] 0.00-0.10 ABS NUCLEATED RBCS (test code = 77672) 0.00 K/UL 0.00-0.11 HEMOGLOBIN [id number] 04:40:59* Test Item Value Reference Range Interpretation Comme nts HEMOGLOBIN A1c (test code = 42741) 5.8 % 4.2-5.6 H UNLESS OTHERWISE INDICATED, ALL TESTING PERFORMED [facility] [address] [place] [address] [id number] CHASER APPRENTICE: STEVIE CRISTOBAL M.D. CLIA NUMBER [id number] [place]. [id number] HEMOGLOBIN [id number] 00:00:00* Test Item Value Reference Range Interpretation Comme nts HEMOGLOBIN A1c (test code = 91359) 5.8 % HEMOGLOBIN [id number] 00:00:00* Test Item Value Reference Range Interpretation Comme nts HEMOGLOBIN A1c (test code = 59831) 5.8 % HEMOGLOBIN [id number] 00:00:00* Test Item Value Reference Range Interpretation Comme nts HEMOGLOBIN A1c (test code = 58433) 5.8 % [id number] 04:19:52* Test Item Value Reference Range Interpretation Comme nts LIPASE (test code = 2058) 20 U/L 13-60 [id number] 04:19:52* Test Item Value Reference Range Interpretation Comme nts AMYLASE (test code = 2205) 72 U/L 28-100 UNLESS OTHERWISE INDICATED, ALL TESTING PERFORMED [facility] [address] [place] [address]8668 CHASER APPRENTICE: STEVIE CRISTOBAL M.D. CLIA NUMBER [id number] [place] [id number] LIPID [id number] 04:10:50* Test Item Value Reference Range Interpretation [...] SPECIMENS. FOR MOREINFORMATION, SEE CLIENT ANNOUNCEMENT AT [email or web address] RISK RATIO LDL/HDL (test code = 223) 4.83 RATIO <3.22 H COMPREHENSIVE METABOLIC [id number] 04:10:50* Test Item Value Reference Range Interpretation Comme nts GLUCOSE (test code = 2216) 115 MG/DL 70-99 H BUN (test code = 2207) 19 MG/DL 6-20 CREATININE (test code = 2214) 0.94 MG/DL 0.60-1.30 eGFR (2020 CKD-EPI) (test code = 29569) 71 ML/MIN/1.73 >60 CALC BUN/CREAT (test code = 2235) 20 RATIO 6-28 SODIUM (test code = 223) 143 MEQ/L 133-146 POTASSIUM (test code = 2228) 4.4 MEQ/L 3.5-5.4 CHLORIDE (test code = 2215) 101 MEQ/L 95-107 CARBON DIOXIDE (test code = 2206) 24 MEQ/L 19-31 CALCIUM (test code = 2209) 10.2 MG/DL 8.5-10.5 PROTEIN, TOTAL (test code = 2228) 7.7 G/DL 6.1-8.3 ALBUMIN (test code = 2201) 4.7 G/DL 3.5-5.2 CALC GLOBULIN (test code = 2240) 3.0 G/DL 1.9-3.7 CALC A/G RATIO (test code = 2234) 1.6 RATIO 1.0-2.6 BILIRUBIN, TOTAL (test code = 220) 0.5 MG/DL See_Comment [Automated me ssage] The system which generated this result transmitted reference range: <=1.2. The reference range was not used to interpret this result as normal/abnormal. ALKALINE PHOSPHATASE (test code = 4) 55 U/L 40-136 AST (test code = 2218) 34 U/L 9-40 ALT (test code = 2219) 42 U/L 5-40 H HIV 1/2 4TH GEN, RFLX [id number] 03:51:01* Test Item Value Reference Range Interpretation Comme nts HIV 1/2 4TH GEN, RFLX CONF ( test code = 3514) NON-REACTIVE NON-REACTIVE HEPATITIS PANEL, [id number] 03:51:01* Test Item Value Reference Range Interpretation Comme nts HEPATITIS A IgM (test code = 88382) NON-REACTIVE NON-REACTIVE HEPATITIS B CORE IgM (test code = 4644) NON-REACTIVE NON-REACTIVE HEPATITIS B SURF AG (test code = 2739) NON-REACTIVE NON-REACTIVE HEPATITIS C ANTIBODY (test code = 4675) NON-REACTIVE NON-REACTIVE INTERPRETATION HEPATITIS A: (test code = 2552) (NOTE) Hepatitis A serology shows no evidence of acute hepatitis A. INTERPRETATION HEPATITIS B: (test code = 28875) (NOTE) Hepatitis B serology shows no evidence of acute hepatitis B andno indication of exposure to hepatitis B virus in the previous lb eight months. INTERPRETATION HEPATITIS C: (test code = 32903) (NOTE) Hepatitis C serology shows no evidence of exposure to hepatitisC virus at this time. It can take up to 12 months after exposure tothe hepatitis C virus for antibodies to become detectable in the blood in certain patients. CBC W/AUTO DIFF WITH [id number] 03:36:48* Test Item Value Reference Range Interpretation [...] 0.00-0.10 ABS NUCLEATED RBCS (test code = 86395) 0.00 K/UL 0.00-0.11 HIV AB/AG COMBO RFLX [id number] 00:00:00* Test Item Value Reference Range Interpretation Comme nts HIV 1/2 4TH GEN, RFLX CONF ( test code = 3514) NON-REACTIVE ACUTE HEPATITIS [id number] 00:00:00* Test Item Value Reference Range Interpretation Comme nts HEPATITIS A IgM (test code = 46335) NON-REACTIVE HEPATITIS B CORE IgM (test c ode = 4644) NON-REACTIVE HEPATITIS B SURF AG (test co de = 2739) NON-REACTIVE HEPATITIS C ANTIBODY (test c ode = 4637) NON-REACTIVE INTERPRETATION HEPATITIS A: (test code = 2552) (NOTE) INTERPRETATION HEPATITIS B: (test code = 09912) (NOTE) INTERPRETATION HEPATITIS C: (test code = 81119) (NOTE) CBC W/AUTO [id number] 00:00:00* Test Item Value Reference Range Interpretation [...] ABS NUCLEATED RBCS (test cod e = 28236) 0.00 K/UL LIPID [id number] 00:00:00* Test Item Value Reference Range Interpretation Comme nts CHOLESTEROL (test code = 2210) 321 MG/DL TRIGLYCERIDES (test code = 2232) 315 MG/DL HDL CHOLESTEROL (test code = 2220) 46 MG/DL CALC LDL CHOL (test code = 2237) 222 MG/DL RISK RATIO LDL/HDL (test cod e = 2238) 4.83 RATIO COMPREHENSIVE METABOLIC [id number] 00:00:00* Test Item Value Reference Range Interpretation Comme nts GLUCOSE (test code = 2217) 115 MG/DL BUN (test code = 2208) 19 MG/DL CREATININE (test code = 2214) 0.94 MG/DL eGFR (2020 CKD-EPI) (test co de = 02303) 71 ML/MIN/1.73 CALC BUN/CREAT (test code = [...] ALT (test code = 2219) 42 U/L [id number] 00:00:00* Test Item Value Reference Range Interpretation Comme [facility] LIPASE (test code = 2058) 20 U/L [id number] 00:00:00* Test Item Value Reference Range Interpretation Comme [facility] AMYLASE (test code = 2204) 72 U/L HIV AB/AG COMBO RFLX [id number] 00:00:00* Test Item Value Reference Range Interpretation Comme [facility] HIV 1/2 4TH GEN, RFLX CONF ( test code = 3514) NON-REACTIVE ACUTE HEPATITIS [id number] 00:00:00* Test Item Value Reference Range Interpretation Comme [facility] HEPATITIS A IgM (test code = 74113) NON-REACTIVE HEPATITIS B CORE IgM (test c ode = 4644) NON-REACTIVE HEPATITIS B SURF AG (test co de = 2739) NON-REACTIVE HEPATITIS C ANTIBODY (test c ode = 4675) NON-REACTIVE INTERPRETATION HEPATITIS A: (test code = 2552) (NOTE) INTERPRETATION HEPATITIS B: (test code = 70697) (NOTE) INTERPRETATION HEPATITIS C: (test code = 21187) (NOTE) CBC W/AUTO [id number] 00:00:00* Test Item Value Reference Range Interpretation [...] ABS NUCLEATED RBCS (test cod e = 42691) 0.00 K/UL LIPID [id number] 00:00:00* Test Item Value Reference Range Interpretation Comme nts CHOLESTEROL (test code = 2210) 321 MG/DL TRIGLYCERIDES (test code = 2232) 315 MG/DL HDL CHOLESTEROL (test code = 2220) 46 MG/DL CALC LDL CHOL (test code = 2237) 222 MG/DL RISK RATIO LDL/HDL (test cod e = 2238) 4.83 RATIO COMPREHENSIVE METABOLIC [id number] 00:00:00* Test Item Value Reference Range Interpretation Comme nts GLUCOSE (test code = 2217) 115 MG/DL BUN (test code = 2208) 19 MG/DL CREATININE (test code = 2214) 0.94 MG/DL eGFR (2020 CKD-EPI) (test co de = 11134) 71 ML/MIN/1.73 CALC BUN/CREAT (test code = [...] 0.5 MG/DL ALKALINE PHOSPHATASE (test code = 4) 55 U/L AST (test code = 2218) 34 U/L ALT (test code = 2219) 42 U/L [id number] 00:00:00* Test Item Value Reference Range Interpretation Comme nts LIPASE (test code = 2057) 20 U/L [id number] 00:00:00* Test Item Value Reference Range Interpretation Comme nts AMYLASE (test code = 2204) 72 U/L HIV AB/AG COMBO RFLX [id number] 00:00:00* Test Item Value Reference Range Interpretation Comme nts HIV 1/2 4TH GEN, RFLX CONF ( test code = 3514) NON-REACTIVE ACUTE HEPATITIS [id number] 00:00:00* Test Item Value Reference Range Interpretation Comme nts HEPATITIS A IgM (test code = 09229) NON-REACTIVE HEPATITIS B CORE IgM (test c ode = 4644) NON-REACTIVE HEPATITIS B SURF AG (test co de = 2739) NON-REACTIVE HEPATITIS C ANTIBODY (test c ode = 4612) NON-REACTIVE INTERPRETATION HEPATITIS A: (test code = 2552) (NOTE) INTERPRETATION HEPATITIS B: (test code = 34589) (NOTE) INTERPRETATION HEPATITIS C: (test code = 50604) (NOTE) CBC W/AUTO [id number] 00:00:00* Test Item Value Reference Range Interpretation [...] ABS NUCLEATED RBCS (test cod e = 22511) 0.00 K/UL LIPID [id number] 00:00:00* Test Item Value Reference Range Interpretation Comme nts CHOLESTEROL (test code = 2210) 321 MG/DL TRIGLYCERIDES (test code = 2232) 315 MG/DL HDL CHOLESTEROL (test code = 2220) 46 MG/DL CALC LDL CHOL (test code = 2237) 222 MG/DL RISK RATIO LDL/HDL (test cod e = 2238) 4.83 RATIO COMPREHENSIVE METABOLIC [id number] 00:00:00* Test Item Value Reference Range Interpretation Comme nts GLUCOSE (test code = 2217) 115 MG/DL BUN (test code = 2208) 19 MG/DL CREATININE (test code = 2214) 0.94 MG/DL eGFR (2020 CKD-EPI) (test co de = 57978) 71 ML/MIN/1.73 CALC BUN/CREAT (test code = [...] ALT (test code = 2219) 42 U/L [id number] 00:00:00* Test Item Value Reference Range Interpretation Comme nts LIPASE (test code = 8) 20 U/L [id number] 00:00:00* Test Item Value Reference Range Interpretation Comme nts AMYLASE (test code = 5) 72 U/L SARS-CoV-2 (COVID-19) by RT-PCR (HIGH RISK)2021-04-06 00:00:00* Test Item Value Reference Range Interpretation Comme nts SARS-CoV-2 INTERPRETATION (test code = 12838) NEGATIVE SOURCE (test code = 26536) NASOPHARYNGEAL SARS-CoV-2 (COVID-19) by RT-PCR (HIGH RISK)2021-04-06 00:00:00* Test Item Value Reference Range Interpretation Comme nts SARS-CoV-2 INTERPRETATION (test code = 56500) NEGATIVE SOURCE (test code = 81338) NASOPHARYNGEAL SARS-CoV-2 (COVID-19) by RT-PCR (HIGH RISK)2021-04-06 00:00:00* Test Item Value Reference Range Interpretation Comme nts SARS-CoV-2 INTERPRETATION (test code = 94713) NEGATIVE SOURCE (test code = 28446) NASOPHARYNGEAL PAP TEST, THINPREP, [id number] 00:00:00* Test Item Value Reference Range Interpretation Comme nts SOURCE: (test code = 8001) Cervical/Endocervical SLIDES: (test code = 8011) 1 LMP: (test code = 8021) SEE NOTE SPECIMEN ADEQUACY: (test code = 62582) (NOTE) INTERPRETATION: (test code = 19035) NILM/NO EPITH. ABNORMALITY;SEE BELOW DIRECTOR OF ATHLETICS: (test code = 8101) DILCIA Weber(ASCP)IAC LOCATION: (test code = 14846) (NOTE) CPT: (test code = 8140) (NOTE) HPV HIGH RISK WITH GENOTYPE, [id number] 00:00:00* Test Item Value Reference Range Interpretation Comme nts HPV HIGH RISK INTERP (test c ode = 45680) NEGATIVE HPV 16 (test code = 55601) NEGATIVE HPV 18 (test code = 84522) NEGATIVE HPV, HR, OTHER GENOTYPES (te st code = 19592) NEGATIVE PAP TEST, THINPREP, [id number] 00:00:00* Test Item Value Reference Range Interpretation Comme nts SOURCE: (test code = 8001) Cervical/Endocervical SLIDES: (test code = 8011) 1 LMP: (test code = 8021) SEE NOTE SPECIMEN ADEQUACY: (test code = 99893) (NOTE) INTERPRETATION: (test code = 53750) NILM/NO EPITH. ABNORMALITY;SEE BELOW DIRECTOR OF ATHLETICS: (test code = 8101) DILCIA Weber(ASCP)IAC LOCATION: (test code = 54315) (NOTE) CPT: (test code = 8140) (NOTE) HPV HIGH RISK WITH GENOTYPE, [id number] 00:00:00* Test Item Value Reference Range Interpretation Comme nts HPV HIGH RISK INTERP (test c ode = 61600) NEGATIVE HPV 16 (test code = 83177) NEGATIVE HPV 18 (test code = 50646) NEGATIVE HPV, HR, OTHER GENOTYPES (te st code = 27323) NEGATIVE PAP TEST, THINPREP, [id number] 00:00:00* Test Item Value Reference Range Interpretation Comme nts SOURCE: (test code = 8001) Cervical/Endocervical SLIDES: (test code = 8011) 1 LMP: (test code = 8021) SEE NOTE SPECIMEN ADEQUACY: (test code = 65766) (NOTE) INTERPRETATION: (test code = 66288) NILM/NO EPITH. ABNORMALITY;SEE BELOW DIRECTOR OF ATHLETICS: (test code = 8101) DILCIA Weber(ASCP)IAC LOCATION: (test code = 82932) (NOTE) CPT: (test code = 8140) (NOTE) HPV HIGH RISK WITH GENOTYPE, [id number] 00:00:00* Test Item Value Reference Range Interpretation Comme nts HPV HIGH RISK INTERP (test c ode = 59948) NEGATIVE HPV 16 (test code = 38686) NEGATIVE HPV 18 (test code = 31108) NEGATIVE HPV, HR, OTHER GENOTYPES (te st code = 88139) NEGATIVE VAGINAL PATHOGENS DNA [id number] 00:00:00* Test Item Value Reference Range Interpretation Comme nts ISI SPECIES (test code = 19990) NEGATIVE G. VAGINALIS (test code = 11933) POSITIVE T. VAGINALIS (test code = 63427) NEGATIVE VAGINAL PATHOGENS DNA [id number] 00:00:00* Test Item Value Reference Range Interpretation Comme nts ISI SPECIES (test code = 33846) NEGATIVE G. VAGINALIS (test code = 20654) POSITIVE T. VAGINALIS (test code = 45415) NEGATIVE VAGINAL PATHOGENS DNA [id number] 00:00:00* Test Item Value Reference Range Interpretation Comme nts ISI SPECIES (test code = 54578) NEGATIVE G. VAGINALIS (test code = 22875) POSITIVE T. VAGINALIS (test code = 57468) NEGATIVE History and Physical Notes Date/Time Note Provider Source 2023-11-11 16:19:13 New Patient Consult Referring Physician: I am seeing this patient at the request of Ksenia Peoples,* Reason for Consultation: Screening colonoscopy. Constipation, periumbilical abdominal pain. GERD, nausea. Macrocytosis. HPI: This is a 58 year old female [...] much alcohol. She is not on any anticoagulation. Additionally, she describes longstanding difficulty with periumbilical abdominal [...] with her symptoms. Her workup in the [facility] system has included the followin07/2023 hemoglobin unremarkable, MCV 104; LFT, amylase/lipase, TSH unremarkable 09/2023 CT noncontrast: No acute abnormalities. Diverticulosis. 09/2023 ultrasound: Fatty liver. Prior cholecystectomy. Over the course of the last year, she [...] has tried ondansetron which does not help much. Past Surgical History: Procedure Laterality Date LIVER REPAIR 1988 liver laceration repair after gallbladder surgery OVARIECTOMY Right 2015 REMOVAL OF GALLBLADDER 1988 Past Medical History: Diagnosis Date Prediabetes Right ovarian cyst diagnosed age 50 Current Outpatient Medications on File Prior to Visit Medication Sig Dispense Refill Atorvastatin Calcium 20 MG oral Tablet Take 1 tablet (20 mg total) by mouth daily. 90 tablet 1 Nicotine 21 MG/24HR transdermal PATCH [address] 1 patch onto the skin every 24 hours. 30 patch 1 Luckey-3 Fatty Acids (Luckey-3 Fish Oil) 1000 MG oral Capsule Take 1 capsule by mouth 2 times daily. 180 capsule 1 Phentermine HCl 37.5 MG oral Tablet Take 1 tablet (37.5 mg total) by mouth every morning (before breakfast). 30 tablet 0 hydrOXYzine HCl 25 MG oral Tablet Take 1/2-1 tablet po three times a day or QHS PRN for anxiety. (Patient not taking: Reported on 11/11/2023.) 15 tablet 0 Ondansetron HCl 4 MG oral Tablet Take 1 tablet (4 mg total) by mouth every 8 hours as needed for nausea. (Patient not taking: Reported on 11/11/2023.) 15 tablet 0 Sumatriptan Succinate 100 MG oral Tablet Take one tablet by mouth x 1 as needed for migraine; If headache is unresolved in 2 hours, take one more tablet by mouth. DO NOT EXCEED 200 MG IN A 24 HOUR PERIOD. Dispense 1 pack. (Patient not taking: Reported on 11/11/2023.) 9 tablet 0 No current facility-administered medications on file prior to visit. No Known Allergies Family History Problem Relation Name Age of Onset Lung Cancer Mother Diabetes Mellitus Father Heart attack Sister No Known Problems Maternal Grandmother No Known Problems Maternal Grandfather Heart attack Paternal Grandmother Lung Cancer Paternal Grandfather Social History Socioeconomic History Marital status: Legally Spouse name: Not on file Number of children: Not on file Years of education: Not on file Highest education level: Not on file Occupational History Not on file Tobacco Use Smoking status: Every Day Current packs/day: 1.00 Average packs/day: 1 pack/day for 40.0 years (40.0 ttl pk-yrs) Types: Cigarettes Smokeless tobacco: Not on file Vaping Use Vaping status: Never Used Substance and Sexual Activity Alcohol use: Not Currently Drug use: Never Sexual activity: Not on file Other Topics Concern Not on file Social History Narrative Not on file Social Determinants of Health Financial Resource Strain: Not on file Food Insecurity: Not on file Transportation Needs: Not on file Physical Activity: Not on file Stress: Not on file Social Connections: Not on file Intimate Partner Violence: Not on file Housing Stability: Not on file ROS: 05/09 systems reviewed, negative except for as mentioned in HPI. PE: BP 109/73 (Side: Right Arm, Position: SITTING, Cuff Size: Medium Adult) | Pulse 84 | Resp 16 | Ht 5' 4" (1.626 m) | Wt 174 lb (78.9 kg) | BMI 29.87 kg/m? Gen: NAD, AO x 3 HEENT: PERRLA EOMI, MMM, No icterus Ab: soft, nt, nd, +bs, no rebound/guarding, no HSM CV: No ext c/c/e, wwp Skin: No rashes, jaundice, petechiae Psych: Appropriate mood and affect Neuro: CN II-XII grossly intact : Deferred Labs and Diagnostic Tests: The labs, and pertinent imaging studies have been reviewed in the record. A/P: This is a 58 year old female who has been referred for issues. 1. Colon CA screening: We discussed the procedure in detail today along with the risks and known complications including (but not limited to) the risk of infection, bleeding, perforation, complication of the sedative medications, and lesion miss rate. A formal consent form will be signed on the day of the procedure. We did also discuss alternatives to the procedure. --Screening colonoscopy with MARICHUY Renee --Timeframe for future colonoscopies will depend on pathology 2. GERD, nausea: Occurring over the last year. --Start omeprazole 40 mg daily --EGD, CS - bx HP --Lifestyle modifications: weight loss, elevate head of bed, avoid tight clothing --Dietary modifications to decrease TLESR: Avoid caffeine, chocolate, fatty meals, meals 4h prior to bedtime 3. Constipation, periumbilical pain: Recent CT did not show any significant abnormalities, although, this was a noncontrast study. She has had improvement with dicyclomine and does not have any alarm signs or symptoms. --EGD and colonoscopy as above --Use MiraLAX 17 g daily to twice daily --Mental as needed 4. Fatty liver: --Recheck LFTs --Diet, exercise, weight loss 5. Macrocytosis: --CBC, B12, folate --Heme referral if persistent macrocytosis RV 3 mos. Thank you for the consult. A copy of this report will be sent to the referring physician. Antonio Lantigua MD [facility] Notes Date/Time Note Provider Source 2024-07-26 10:29:46 Chief Complaint Patient presents with Cough OTHER Congestion, sore throat & wheezing x 5 days Pt states she has taken Dayquil,Nasal spray,Ibuprofen& Mucinex OTC Sinus Problem Headahe from sinus congestion Ear Pain Left ear pain off and on Ana Dwyer MA [facility] 2024-01-13 12:52:09 Chief Complaint Patient presents with Leg Pain Right leg pain that radiates to hip for about 3 weeks. No numbness or swelling. Some tingling with "stabbing" pain. No imaging or treatment in the past. Estrella Tejeda MA II [facility] 2023-09-10 10:53:18 Chief Complaint Patient presents with Follow-Up Visit Follow up visit to discuss labs Carie Alvarez LVN [facility] 2023-08-14 11:16:44 Chief Complaint Patient presents with Physical Physical and fasting labs Carie Alvarez LVN [facility] 2023-07-30 11:02:48 Chief Complaint Patient presents with New Patient New patient established care Establish Care Stomach pain Carie Alvarez LVN [facility]
[2024-11-08 09:47] LABS: Absolute Eosinophils 0.1 K/uL (0-0.5); Absolute Lymphocytes (CBC) 1.3 K/uL (0.7-4.9); Absolute Monocytes 0.7 K/uL (0.1-1.3); Absolute Neutrophil 7.7 K/uL (1.8-8.0); Basophils % 0.2 % (0-1.3); Eosinophils % 1.3 % (0-4.4); Hematocrit 47.3 % (36.0-45.0); Hemoglobin 16.4 g/dL (12.0-15.0); MCH 33.9 pg (27.0-35.0); MCHC 34.7 g/dL (32.0-36.0); MCV 97.9 fL (80-100); MPV 8.4 fL (7.6-11.3); Monocytes % 7.4 % (3.3-12.3); Neutrophils % 78.1 % (41.7-73.7); Platelets 196 thou/uL (152-406); RBC Red Blood Cell Count 4.84 M/uL (3.86-4.86)
[2024-11-08] MEDS ORDERED: ONDANSETRON 4 MG/2 ML VIAL ONE (09:49)
[2024-11-08] MEDS ORDERED: MORPHINE 2 MG/ML SYR ONE (09:50)
[2024-11-08] MEDS ORDERED: NA CHLORIDE 0.9% 1,000 ML ONE (09:50)
[2024-11-08 10:05] LABS: Albumin 3.6 g/dL (3.4-5.0); Albumin/Globulin Ratio 0.9 (1.1-1.8); Anion Gap 3.1 mEq/L (5.0-15.0); Bilirubin Total 0.8 mg/dL (0.2-1.0); Globulin 4.2 g/dL (2.3-3.5); Potassium 4.1 mEq/L (3.5-5.1); Protein, Total 7.8 g/dL (6.4-8.2)
--- NOTE | 2024-11-08 10:56 | RAD REPORT ---
EXAMINATION: CT ABDOMEN AND PELVIS WITH CONTRAST CLINICAL INDICATION: Abdominal pain TECHNIQUE: CT abdomen and pelvis was performed, after the administration of 100 cc Isovue-300.. Sagit rob and coronal reconstructions were obtained. One or more of the following dose reduction techniques were used: Automated exposure control, adjustment of the mA and kV according to patient si ze, and iterative reconstruction. Unless otherwise specified, incidental findings do not require dedicated imaging follow-up. [id number]. Oral contrast was not given which limits evaluation of bowel and appendix. COMPARISON: .None FINDINGS: Liver, spleen, pancreas, adrenals and kidneys appear unremarkable. Cholecystectomy. Wall of the descending colon markedly thickened. Stranding within the adjacent right. Pneumatosis int estinalis is not present. No evidence of diverticulitis. Normal appendix No adnexal mass.. Small umbilical hernia : IMPRESSION: Marked left colitis
--- NOTE | 2024-11-08 11:32 | EDPHYS ---
Physician Documentation [facility] Name: Sharyn Sanchez Age: 59 yrs Sex: Female : 1965 Arrival Date: 11/08/2024 Time: 09:05 Bed 14 Private MD: ED Physician Ward Cornelius HPI: 11/08 09:27 This 59 yrs old Female presents to ER via Unassigned with complaints of Abdominal Pain, rt Rectal Bleeding. 09:27 Patient presents to the ED with lower abdominal pain, reported rectal bleeding starting rt yesterday. Patient states that if she had to strain to use the restroom, noted blood on the toilet, some in the bowl. States that her stools mostly been brown with blood mixed in with it. Reports nausea, vomiting. Denies other acute complaints at this time, symptoms are moderate in severity, no other aggravating alleviating factors.. Historical: - Allergies: 09:35 No Known Allergies; bp - PMHx: 09:35 fatty liver; PRE DIABETIC; Hypercholesterolemia; bp - PSHx: 09:35 Cholecystectomy; bp - Immunization history:: Adult Immunizations up to date. - Infectious Disease History:: Denies. - Family history:: not pertinent. - Social history:: Smoking status: Patient denies any tobacco usage or history of. ROS: 09:27 Constitutional: Negative for fever, chills, and weight loss, Cardiovascular: Negative rt for chest pain, palpitations, and edema, Respiratory: Negative for shortness of breath, cough, wheezing, and pleuritic chest pain, MS/Extremity: Negative for injury and deformity, Skin: Negative for injury, rash, and discoloration, Neuro: Negative for headache, weakness, numbness, tingling, and seizure, 09:27 Abdomen/GI: Positive for abdominal pain, nausea, rectal bleeding, Exam: 09:27 Constitutional: This is a well developed, well nourished patient who is awake, alert, rt and in no acute distress. Head/Face: Normocephalic, atraumatic. Chest/axilla: Normal chest wall appearance and motion. Nontender with no deformity. No lesions are appreciated. Cardiovascular: Regular rate and rhythm with a normal S1 and S2. No gallops, murmurs, or rubs. Normal PMI, no JVD. No pulse deficits. Skin: Warm, dry with normal turgor. Normal color with no rashes, no lesions, and no evidence of cellulitis. MS/ Extremity: Pulses equal, no cyanosis. Neurovascular intact. Full, normal range of motion. Neuro: Awake and alert, GCS 15, oriented to person, place, time, and situation. Cranial nerves II-XII grossly intact. Motor strength 5/5 in all extremities. Sensory grossly intact. Cerebellar exam normal. Normal gait. : Respiratory: Faint wheezes heard at the bases, no respiratory distress, :27 Abdomen/GI: Tenderness to the left lower quadrant with mild guarding, no rebound, distention, Vital Signs: 09:10 BP 112 / 68; Pulse 86; Resp 16; Temp 98; Pulse Ox 97% ; bp 09:54 BP 123 / 73; Pulse 76; Resp 16; Pulse Ox 98% ; bp 11:59 BP 127 / 75; Pulse 73; Resp 16; Pulse Ox 99% ; bp MDM: 09:18 Medical Screening Exam initiated rt 11:33 Differential diagnosis: Diverticulitis, colitis, anal fissure. Data reviewed: vital rt signs, nurses notes. Consideration of Admission/Observation Escalation of care including admission/observation considered. Discussed diagnostic findings with patient, she states that she does not wish to be admitted to the hospital, believe that she is amenable to trial of outpatient management, strict return precautions were discussed with the patient, she was instructed to follow-up with her check airman as soon as possible.. I considered the following discharge prescriptions or medication management in the emergency department Medications were administered in the Emergency Department. See MAR. Independent interpretation of the following test(s) in the Emergency Department CT Scan: My interpretation is No bowel obstruction syndrome interpretation of CT scan images. Care significantly affected by the following chronic conditions: Diabetes. Counseling: I had a detailed discussion with the patient and/or guardian regarding the historical points, exam findings, and any diagnostic results supporting the discharge/admit diagnosis, lab results, radiology results, the need for outpatient follow up, to return to the emergency department if symptoms worsen or persist or if there are any questions or concerns that arise at home. Response to treatment: the patient's symptoms have markedly improved after treatment. 11/08 09: Order name: CBC with Diff; Complete Time: 10:05 rt 11/08 08: Order name: CMP; Complete Time: 10:05 rt 11/08 09:27 Order name: Lipase; Complete Time: 10:05 rt 11/08 09:27 Order name: CT Abd/Pelvis - IV Contrast Only; Complete Time: 11:01 rt 11/08 09:27 Order name: IV Saline Lock; Complete Time: 09:54 rt 11/08 09:27 Order name: Labs collected and sent; Complete Time: 09:53 rt Administered Medications: 09:53 Drug: NS 0.9% IV 1000 ml IV at 1 bolus Per protocol; to be given as a bolus over 60 bp minutes Route: IV; Rate: 1 bolus; Site: right antecubital; 11:34 Follow up: IV Status: Completed infusion bp 09:54 Drug: Ondansetron IVP 4 mg IVP once; over 2 minutes Route: IVP; Site: right antecubital;bp 11:35 Follow up: Response: No adverse reaction bp 09:54 Drug: morphine IVP or IV 2 mg IVP once over 4 mins Route: IVP; Infused Over: 4 mins; bp Site: right antecubital; 11:35 Follow up: Response: No adverse reaction bp 11:45 Drug: Amoxicillin-Clavulanate PO 875 mg PO once Route: PO; bp 11:59 Follow up: Response: No adverse reaction bp Disposition Summary: 11/08/24 11:31 Discharge Ordered Notes: Location: Home rt Problem: new rt Symptoms: have improved rt Condition: Stable rt Diagnosis - Left sided colitis with rectal bleeding rt Followup: rt - With: Private Physician - When: 5 - 6 days - Reason: Followup: rt - With: Emergency Department - When: As needed - Reason: Worsening of condition Discharge Instructions: - Discharge Summary Sheet rt - Colitis rt Forms: - Medication Reconciliation Form rt - Antibiotic Education rt - Prescription Opioid Use rt - Patient Portal Instructions rt - Leadership Thank You Letter rt Prescriptions: - ondansetron 4 mg Oral Tablet,disintegrating - take 1 tablet ORAL route every 6 hours; 15 tablet; Refills: 0, Product rt Selection Permitted - Augmentin 875-125 mg Oral Tablet - take 1 tablet ORAL route every 12 hours for 10 days; 20 tablet; Refills: 0, rt Product Selection Permitted - Tylenol-Codeine #3 300mg-30mg Oral tablet - take 1 tablet ORAL route every 4 hours As needed; 15 tablet; Refills: 0, rt Product Selection Permitted Signatures: Dispatcher [employer] Antione Calzada, RN RN bp Ward Cornelius MD MD rt Corrections: (The following items were deleted from the chart) :27 09:27 Abdomen Pelvis W Con+CT.RAD.BRZ ordered. EDMS EDMS
--- NOTE | 2024-11-08 11:32 | ER ---
Nurse's Notes [facility] Name: Sharyn Sanchez Age: 59 yrs Sex: Female : 1965 Arrival Date: 11/08/2024 Time: 09:05 Bed 14 Private MD: Diagnosis: Left sided colitis with rectal bleeding Presentation: 11/08 09:10 Chief complaint: Patient states: ABDOMINAL CRAMPING WITH RECTAL BLEEDING AFTER BM LAST bp NIGHT. Coronavirus screen: At this time, the client does not indicate any symptoms associated with coronavirus-19. Ebola Screen: No symptoms or risks identified at this time. Initial Sepsis Screen: Does the patient meet any 2 criteria? No. Patient's initial sepsis screen is negative. Does the patient have a suspected source of infection? No. Patient's initial sepsis screen is negative. Risk Assessment: Do you want to hurt yourself or someone else? Patient reports no desire to harm self or others. Onset of symptoms is unknown. 09:10 Method Of Arrival: Ambulatory bp 09:10 Acuity: JERAMIE 3 bp Triage Assessment: 09:35 General: Appears in no apparent distress. uncomfortable, Behavior is calm, cooperative, bp appropriate for age. Pain: Complains of pain in abdomen. EENT: No deficits noted. Neuro: No deficits noted. Cardiovascular: No deficits noted. Respiratory: No deficits noted. GI: Reports lower abdominal pain, cramping, rectal bleeding. : No signs and/or symptoms were reported regarding the genitourinary system. Derm: No deficits noted. Musculoskeletal: No deficits noted. Historical: - Allergies: 09:35 No Known Allergies; bp - PMHx: 09:35 fatty liver; PRE DIABETIC; Hypercholesterolemia; bp - PSHx: 09:35 Cholecystectomy; bp - Immunization history:: Adult Immunizations up to date. - Infectious Disease History:: Denies. - Family history:: not pertinent. - Social history:: Smoking status: Patient denies any tobacco usage or history of. Screenin:30 [facility] ED Fall Risk Assessment (Adult) History of falling in the last 3 months, bp including since admission No falls in past 3 months (0 pts) Confusion or Disorientation No (0 pts) Intoxicated or Sedated No (0 pts) Impaired Gait No (0 pts) Mobility Assist Device Used No (0 pt) Altered Elimination No (0 pt) Score/Fall Risk Level 0 - 2 = Low Risk Oriented to surroundings. Abuse screen: Denies threats or abuse. Denies injuries from another. Nutritional screening: No deficits noted. Tuberculosis screening: No symptoms or risk factors identified. Assessment: 09:30 General: Appears in no apparent distress. uncomfortable, Behavior is calm, cooperative, bp appropriate for age. 11:30 Reassessment: DC ON HOLD FOR IVF. bp Vital Signs: 09:10 BP 112 / 68; Pulse 86; Resp 16; Temp 98; Pulse Ox 97% ; bp 09:54 BP 123 / 73; Pulse 76; Resp 16; Pulse Ox 98% ; bp 11:59 BP 127 / 75; Pulse 73; Resp 16; Pulse Ox 99% ; bp ED Course: 09:09 Patient arrived in ED. al6 09:09 Ward Cornelius MD is Attending Physician. rt 09:10 Arm band placed on. bp 09:16 Antione Gomez, TIMOTEO is Primary Nurse. bp 09:30 Patient has correct armband on for positive identification. bp 09:30 Inserted saline lock: 22 gauge in right antecubital area, using aseptic technique. bp 09:30 Initial lab(s) drawn, by ED staff, sent to lab. bp 09:35 Triage completed. bp 10:27 CT Abd/Pelvis - IV Contrast Only In Process Unspecified. EDMS 12:03 No provider procedures requiring assistance completed. IV discontinued, intact, bp bleeding controlled, No redness/swelling at site. Pressure dressing applied. Administered Medications: 09:53 Drug: NS 0.9% IV 1000 ml IV at 1 bolus Per protocol; to be given as a bolus over 60 bp minutes Route: IV; Rate: 1 bolus; Site: right antecubital; 11:34 Follow up: IV Status: Completed infusion bp 09:54 Drug: Ondansetron IVP 4 mg IVP once; over 2 minutes Route: IVP; Site: right antecubital;bp 11:35 Follow up: Response: No adverse reaction bp 09:54 Drug: morphine IVP or IV 2 mg IVP once over 4 mins Route: IVP; Infused Over: 4 mins; bp Site: right antecubital; 11:35 Follow up: Response: No adverse reaction bp 11:45 Drug: Amoxicillin-Clavulanate PO 875 mg PO once Route: PO; bp 11:59 Follow up: Response: No adverse reaction bp Medication: 09:30 VIS not applicable for this client. bp Outcome: 11:31 Discharge ordered by . rt 12:03 Discharged to home ambulatory, with family, bp 12:03 Condition: stable 12:03 Discharge instructions given to patient, Instructed on discharge instructions, follow up and referral plans. medication usage, Demonstrated understanding of instructions, follow-up care, medications, Prescriptions given X 1, 12:04 Patient left the ED. bp Signatures: Dispatcher [employer] EDAntione Hamilton, TIMOTEO RN bp Ward Cornelius MD MD rt Ingrid Rob
[2024-11-08] MEDS ORDERED: AMOX/K CLAV 875 MG TAB ONE (11:57)
[2024-11-08 12:11] VITALS: TEMP 98
[2024-11-08 12:13] VITALS: BP 127/75; O2SAT 99
== END 2024-11-08 12:04 | disposition home or self-care (01) ==
LOC: ER 09:05
DX: K51.511 Left sided colitis with rectal bleeding (principal)
CPT/HCPCS: 85025; 36415; 83690; 80053; 74177; Q9967; J2270; J2405; J7030